=== PATIENT | male | born 1940 | race Caucasian/White ===

== ENCOUNTER 2024-07-22 09:15 | Emergency (ER) | payer MEDICARE, SELFPAY ==
[2024-07-22 09:37] VITALS: BP 175/83; PULSE 86; RESP 16; TEMP 36.4; O2SAT 100
[2024-07-22 10:02] LABS: Add Urine Microscopic? NO; Appearance Urine Clear (Clear); Bilirubin Urine Negative (Negative); Blood Urine Negative (Negative); Color Urine Yellow (Yellow); Glucose Urine UA Negative (Negative); Ketones Urine Negative (Negative); Leukocyte Esterase Ur Negative LEU/UL (Negative); Nitrate Urine Negative (Negative); Protein Urine Negative (Negative); Specific Grav Ur 1.011 (1.001-1.035); Urobilinogen Urine 0.2 mg/dL (<2.0); pH Urine 6.5 (5.0-9.0)
[2024-07-22 12:03] VITALS: BP 155/81; PULSE 53; RESP 18; O2SAT 100
--- NOTE | 2024-07-22 12:06 | PC.NURSE ---
pt has history of kidney stone that hasn't passed yet. two weeks ago he got a scan that showed the kidney stone still in the ureter. pt states that he has now been able to urinate after coming to the hospital and denies any discomfort or pain
--- NOTE | 2024-07-22 13:16 | ED.GENADULT ---
HPI - General Adult General Chief complaint: Urogenital-Male Stated complaint: unable to urinate Time Seen by Provider: 07/22/24 12:09 History of Present Illness HPI narrative: This is an 84-year-old male history of BPH presenting for difficulty urinating. Patient felt like he cannot urinate this morning was developing some suprapubic pressure. However when he got to the ED he was able to urinate with a weak stream. His pain is now improved. Patient is due for a urologic procedure on his prostate and due to difficulty urinating. Related Data Allergies Allergy/AdvReac Type Severity Reaction Status Date / Time ciprofloxacin Allergy Intermediate Cramping Verified 07/22/24 12:08 of the Muscles progesterone (From Allergy Intermediate Muscle Pain Verified 07/22/24 12:08 Endometrin) Exam Narrative: APPEARANCE: No apparent distress. Head: atraumatic. EYES: EOMI, NOSE: Atraumatic NECK: Trachea midline RESPIRATORY: No increased rate of breathing CARDIOVASCULAR: RRR, ABDOMINAL: Non-distended Soft nontender no guarding or rebound MUSCULOSKELETAl: No obvious deformities NEURO: Alert. Moving 4/4 extremities SKIN:: Warm, dry. Normal color PSYCHIATRIC: Normal affect Course Vital Signs Vital signs: Vital Signs Temperature 97.6 F 07/22/24 09:37 Pulse Rate 86 07/22/24 09:37 Respiratory Rate 16 07/22/24 09:37 Blood Pressure 175/83 H 07/22/24 09:37 Pulse Oximetry 100 07/22/24 09:37 Temperature 97.6 F 07/22/24 09:37 Pulse Rate 53 L 07/22/24 12:03 Respiratory Rate 18 07/22/24 12:03 Blood Pressure 155/81 H 07/22/24 12:03 Pulse Oximetry 100 07/22/24 12:03 Medical Decision Making [facility] Narrative Medical decision making narrative: -Course: 84-year-old male presenting with difficulty urinating. However when he arrived here he was able to urinate no longer has abdominal pain. Was read residual is 229. I discussed Zavala catheter versus allowing himself void and he would rather self void and return if anything is changed. Patient was discharged follow-up this urologist. -DDX includes but is not limited to: Urinary retention, UTI Vital Signs Vital Signs: Vital Signs Temperature 97.6 F 07/22/24 09:37 Pulse Rate 86 07/22/24 09:37 Respiratory Rate 16 07/22/24 09:37 Blood Pressure 175/83 H 07/22/24 09:37 Pulse Oximetry 100 07/22/24 09:37 Temperature 97.6 F 07/22/24 09:37 Pulse Rate 53 L 07/22/24 12:03 Respiratory Rate 18 07/22/24 12:03 Blood Pressure 155/81 H 07/22/24 12:03 Pulse Oximetry 100 07/22/24 12:03 Lab Data Labs: Lab Results 07/22/24 Range/Units 09:42 Urine Color Yellow (Yellow) Urine Appearance Clear (Clear) Urine pH 6.5 (5.0-9.0) Ur Specific [place] 1.011 (1.001-1.035) Urine Protein Negative (Negative) mg/dL Urine Glucose (UA) Negative (Negative) mg/dL Urine Ketones Negative (Negative) mg/dL Ur Blood (Man) Negative (Negative) Urine Nitrate Negative (Negative) Urine Bilirubin Negative (Negative) Urine Urobilinogen 0.2 (<2.0) mg/dL Leukocyte Esterase Rfl Negative (Negative) JERED/UL Discharge Plan Discharge Clinical Impression: Acute urinary retention Patient Disposition: Home, Self-Care Condition: Stable Instructions: Antibiotic Form, Urinary Retention in Men (ED) Additional Instructions: please follow-up with urologist for further management. If you are unable to urinate or developed abdominal pain return to the closest ED immediately. Patient Language: Kinyarwanda Follow-up/Referrals: PHYSICIAN NOT ON STAFF,NONSTAFF [Primary Care Provider] -
--- OUTSIDE RECORDS SUMMARY | 2024-07-29 09:18 | XMS_ITS ---
Author Organization [facility] Address [address] [place] [address] Care Team Providers Care Typesetters Printer Name Role Phone NONE, PCP Primary Care Provider Yanira QUEZADA M.D., LOLY Unavailable [phone] ROBERT MOULTON, AMEYA Unavailable Unavailable Ryann Avendano Unavailable [phone] REASON FOR VISIT WU adjustment, Left ear Encounters Encounter Location Date Provider Diagnosis [facility] [address] [place] [address] 07/13/2024 Ryann Avendano Plan Of Treatment No Information Progress Notes * LENCHO SAINZ LDOB:[birth year] (83 yo M)Acc No.[id number]:07/13/2024 Patient:?LENCHO SAINZ Provider:?Radha Rawls, TAMMY/Pipo :1940???Age:83 Y???Sex:Male Jamel e:07/13/2024 Address:[address] [facility] [place], [id number] Pcp:PCP NONE Subjective: * Chief Complaints: * ???1. WU adjustment, Left ea r. * Medical History:? Objective: * Vitals:? * Physical Examination:?WU Service:?WU Service Results?Patient seen today for evaluation of Oticon hearing aids. Patient complained of feedback noise bilaterally, worse on the left. He also believes the left is louder, and he reported he has been decreasing the volume 2 notches daily to remediate. After listening check, hearing aids revealed good sound quality, but physical fit of hearing aids was a bit big. Patient was switched from 10mm power domes to 8mm power domes and switched from size 2 to size 3 100 power receivers, bilaterally. This fit was much more comfortable for patient and significantly improved feedback issues. Patient still felt unbalanced, that his left WU was too loud, especially his voice. Loud sounds at all freqs were decreased two steps, and patient reported it to have improved. It was decided to try these settings over the holidays and reconvene in the future if he is still having issues. Patient was happy with today's appt and will return as needed. Patient given supply of new domes.?Cristina Watson B.A.; Radha Rawls, TAMMY/Pipo . Assessment: Plan: * Treatment: * Procedure Codes:?V5011 WU CH JANIS * Billing Information: * Visit Code:? * Procedure Codes:? V5011 WU CHECK. * ORATIVE CARE TECHNICIAN Sign off status: Completed true * Provider:?Radha Rawls CCC/Pipo Jamel e:?07/13/2024 Generated for Lana anderson/Salvatore/eTransmitting on:?07/29/2024 09:18 AM RESTORATIVE CARE TECHNICIAN History and Physical Notes * Physical Examination Category Sub-Category Detail Notes Section Note s WU Service WU Service Results Patient seen today for evaluation of Oticon hearing aids. Patient complained of feedback noise bilaterally, worse on the left. He also believes the left is louder, and he reported he has been decreasing the volume 2 notches daily to remediate. After listening check, hearing aids revealed good sound quality, but physical fit of hearing aids was a bit big. Patient was switched from 10mm power domes to 8mm power domes and switched from size 2 to size 3 100 power receivers, bilaterally. This fit was much more comfortable for patient and significantly improved feedback issues. Patient still felt unbalanced, that his left WU was too loud, especially his voice. Loud sounds at all freqs were decreased two steps, and patient reported it to have improved. It was decided to try these settings over the holidays and reconvene in the future if he is still having issues. Patient was happy with today's appt and will return as needed. Patient given supply of alcon Watson B.A.; Radha Rawls, TAMMY/A
--- OUTSIDE RECORDS SUMMARY | 2024-07-29 09:19 | XMS_ITS ---
Author Organization [facility] Address [address] [place] [address] Care Team Providers Care Mig Tig Welder Name Role Phone NONE, PCP Primary Care Provider Yanira QUEZADA M.D., LOLY Unavailable ROBERT MOULTON, AMEYA Unavailable Unavailable Ryann Avendano Unavailable [phone] REASON FOR VISIT WU adjustment Encounters Encounter Location Date Provider Diagnosis [facility] [address] [facility] [address] [place] [address] 06/01/2024 Ryann Avendano Plan Of Treatment No Information Progress Notes * LENCHO SAINZ LDOB:[birth year] (83 yo M)Acc No.[id number]:06/01/2024 Patient:?LENCHO SAINZ Provider:?Radha Rawls, [facility]/Pipo :1940???Age:83 Y???Sex:Male Jamel e:06/01/2024 Address:[address] [facility] [place], [id number] Pcp:PCP NONE Subjective: * Chief Complaints: * ???1. UW adjustment. * Medical History:? Objective: * Vitals:? * Physical Examination:?WU Service:?WU Service Results?Patient seen today for evaluation of Oticonhearing aids. Patient reported issues with not being able to understand speech. Otoscopy revealed extruded tube sitting in ear canal on the right. Initial listening check revealed HAs to be in GWO.Replaced wax filters and 10mm power domes, vacuumed microphones. Updated HAs to most recent?hearing test andrecalculated to targets. Increased to adaptation level 3. Patient reported improved speech understanding but his own voice was too loud. Reduced soft and moderate inputs up to 2kHz by 2dB. Patient reported improved sound quality. Patient is pleased and will return as needed or in November?for annualhearing evaluation/hearing aid check ?.?Audrey Calvert Assessment: Plan: * Treatment: * Procedure Codes:?V5011 WU CH JANIS * Billing Information: * Visit Code:? * Procedure Codes:? V5011 WU CHECK. * HER FOREMAN Sign off status: Completed true * Provider:?Radha Rawls CCC/Pipo Jamel e:?06/01/2024 Generated for Lana anderson/Salvatore/eTransmitting on:?07/29/2024 09:18 AM CRUSHER FOREMAN History and Physical Notes * Physical Examination Category Sub-Category Detail Notes Section Note s WU Service WU Service Results Patient seen today for evaluation of Oticon hearing aids. Patient reported issues with not being able to understand speech. Otoscopy revealed extruded tube sitting in ear canal on the right. Initial listening check revealed HAs to be in GWO. Replaced wax filters and 10mm power domes, vacuumed microphones. Updated HAs to most recent hearing test and recalculated to targets. Increased to adaptation level 3. Patient reported improved speech understanding but his own voice was too loud. Reduced soft and moderate inputs up to 2kHz by 2dB. Patient reported improved sound quality. Patient is pleased and will return as needed or in November for annual hearing evaluation/hearing aid check Audrey Calvert
--- OUTSIDE RECORDS SUMMARY | 2024-07-29 09:19 | XMS_ITS ---
Author Organization [facility] Address [address] [place] [address] Care Team Providers Care Film Recordist Name Role Phone NONE, PCP Primary Care Provider Yanira QUEZADA M.D., LOLY Jackman ROBERT MOULTON, AMEYA Jackman Unavailable REASON FOR VISIT Payment Encounters Encounter Location Date Provider Diagnosis [facility] [address] [facility] [address] [place] [address] 02/18/2024 LOLY BRISCOE III Plan Of Treatment No Information Progress Notes * LENCHO SAINZ LDOB:[birth year] (83 yo M)Acc No.[id number]:02/18/2024 Patient:?LENCHO SAINZ :1940???Age:83 Y???Sex:Male Address:[address] [facility] [place] [address] * true * Date:? Generated for Lana anderson/Salvatore/eTransmitting on:?07/29/2024 09:18 AM PIPE FITTER GAS PIPE
--- OUTSIDE RECORDS SUMMARY | 2024-07-29 18:35 | XMS_ITS | Encounter Summary ---
Author Organization [facility] Address [address] [place] [address] Care Team Providers Care Spraying Machine Operator Name Role Phone Kevin John MD Primary Care Provider [phone] Encounter Details Date Type Department Care Team (Late st Contact Info) Description 05/22/2024 1:00 PM CDT Ancillary Procedure [facility] (X-ray) [address] [facility] [address] [place] [phone] Kidney stone Social History Tobacco Use Types Packs/Day Years Used Date Smoking Tobacco: Never Humiliation, Afraid, Rape, and Kick questionnair e Answer Date Recorded Within the last year, have y ou been afraid of your partner or ex-partner? No 05/05/2024 Within the last year, have y ou been humiliated or emotionally abused in other ways by your partner or ex-partner? No Within the last year, have y ou been kicked, hit, slapped, or otherwise physically hurt by your partner or ex-partner? No 05/05/2024 Within the last year, have y ou been raped or forced to have any kind of sexual activity by your partner or ex-partner? No 05/05/2024 Sex and Gender Information Value Date Recorded Sex Assigned at Male 02/08/2024 1:37 PM CDT Legal Sex Male 6:20 AM CDT Gender Identity Male 10/17/2023 6:20 AM CDT Sexual Orientation Straight 02/08/2024 1: 37 PM CDT Travel History Travel Start Travel End [place] 07/17/2024 07/24/2024 documented as of this encounter Plan of Treatment Upcoming Encounters Date Type Department Care Team (Late st Contact Info) Description 08/01/2024 3:30 PM BAGGER MEAT Office Visit [facility] [address] [facility] [address] [place] [phone] Kevin John MD [address] [place] [address] documented as of this encounter Procedures Procedure Name Priority Date/Time Associated Diagnosis Comments XR ABDOMEN 1 VIEW Routine 05/22/2024 1:0 4 PM CDT Kidney stone documented in this encounter Results * XR abdomen 1 view (05/22/2024 1:04 PM CDT) Anatomical Region Laterality Modality Abdomen Digital Radiogra phy Impressions 05/22/2024 5:29 PM CDT No acute findings. Moderate amount of retained feces consistent with constipation. ELECTRONICALLY SIGNED BY DANDRE TROTTER MD ON 05/22/2024 AT 17:29. Narrative 05/22/2024 5:29 PM CDT PROCEDURE INFORMATION: Exam: XR Abdomen Exam date and time: 05/22/2024 1:05 PM Age: 83 years old Clinical indication: Calculus of kidney; Additional info: Renal stone TECHNIQUE: Imaging protocol: Radiologic exam of the abdomen. Views: Frontal supine view of the abdomen. 1 View. COMPARISON: CT ANGIOGRAM CHEST ABDOMEN PELVIS 05/05/2024 2:51 AM FINDINGS: Gastrointestinal tract: There is a non-obstructive bowel gas pattern. There is no abnormal dilatation of bowel loops. There is no pneumatosis or mass effect. ?? Moderate amount of retained feces is present in the colon. Bones/joints: ??Degenerative changes of the lumbar spine. Soft tissues: No abnormal radiopaque densities. ??Phleboliths project over the pelvis. Procedure Note Dandre Trotter MD - 05/22/2024 PROCEDURE INFORMATION: Exam: XR Abdomen Exam date and time: 05/22/2024 1:05 PM Age: 83 years old Clinical indication: Calculus of kidney; Additional info: Renal stone TECHNIQUE: Imaging protocol: Radiologic exam of the abdomen. Views: Frontal supine view of the abdomen. 1 View. COMPARISON: CT ANGIOGRAM CHEST ABDOMEN PELVIS 05/05/2024 2:51 AM FINDINGS: Gastrointestinal tract: There is a non-obstructive bowel gas pattern.There is no abnormal dilatation of bowel loops. There is no pneumatosis or masseffect. Moderate amount of retained feces is present in the colon. Bones/joints: Degenerative changes of the lumbar spine. Soft tissues: No abnormal radiopaque densities. Phleboliths project overthe pelvis. IMPRESSION: No acute findings. Moderate amount of retained feces consistent with constipation. ELECTRONICALLY SIGNED BY DANDRE TROTTER MD ON 05/22/2024 AT 17:29. Kevin John MD IMG XR PROCEDURES Final Res ult documented in this encounter Visit Diagnoses Diagnosis Kidney stone Calculus of kidney documented in this encounter Care Teams Spraying Machine Operator Relationship Specialty Start Date End Date Kevin John MD [address] [facility] [address] [place] [phone] PCP - General 10/16/20 documented as of this encounter
--- OUTSIDE RECORDS SUMMARY | 2024-07-29 18:35 | XMS_ITS | Clinical Summary ---
Author Organization [facility] Address [address] [place] [address] Care Team Providers Care Clerical Methods Analyst Name Role Phone Kevin John MD Primary Care Provider [phone] Allergies Active Allergy Reactions Criticality Noted Date Comments Ciprofloxacin 09/17/2023 Pain in calves Indomethacin 05/04/2024 Calf leg pain Medications alfuzosin ER (Uroxatral) 10 MG 24 hr tablet Take 20 mg by mouth 1 time each day. Active finasteride (Proscar) 5 MG tablet Take 5 mg by mouth 1 time each day. Active tamsulosin (Flomax) 0.4 MG 24 hr capsule Take 1 capsule by mouth 1 time each day. 30 capsule Active Additional Information Patient not taking.Reported on 05/18/2024 Active Problems Problem Noted Date Diagnosed Date Pulmonary nodule 05/05/2024 Renal lesion 05/05/2024 Calculus of gallbladder with out cholecystitis without obstruction 05/05/2024 Encounters Date Type Department Care Team Description 07/25/2024 Travel 07/15/2024 Results Follow-Up [facility] [address] [place] [phone] Kevin John MD 07/12/2024 11:30 AM LINK KNITTING MACHINE OPERATOR Ancillary Procedure [facility] (Ultrasound) [address] [place] [address] Kidney stone 07/12/2024 Travel 05/23/2024 Results Follow-Up [facility] [address] [place] [phone] Kevin John MD Kidney stone (Primary Dx) 05/22/2024 1:00 PM CDT Ancillary Procedure [facility] (X-ray) [address] [place] [address] Kidney stone 05/22/2024 Travel 05/18/2024 3:45 PM CDT Office Visit [facility] [address] [place] [address] Kevin John MD Benign prostatic hyperplasia without lower urinary tract symptoms (Primary Dx); Kidney stone 05/05/2024 Erroneous Telephone Encounter [facility] [address] [place] [address] Sarah Parisi PA 05/04/2024 10:59 PM CDT - 05/05/2024 6:51 AM CDT Emergency [facility] (Emergency) [address] [place] [address] Mihir Daley MD Left flank pain (Primary Dx); Ureterolithiasis; Pulmonary nodule; Renal lesion; Calculus of gallbladder without cholecystitis without obstruction Discharge Disposition: Home 05/04/2024 Travel from Last 3 Months Social History Tobacco Use Types Packs/Day Years [...] CDT Travel History Travel Start Travel End [place] 07/17/2024 07/24/2024 Last Filed Vital Signs Vital Sign Reading Time Taken Comments Blood Pressure 148/63 05/18/2024 3:43 PM CDT Pulse 43 05/18/2024 3:43 PM CDT Temperature 36.7 ??C (98 ??F) 05/05/2024 6:38 AM CDT Respiratory Rate 18 05/05/2024 6:38 AM CDT Oxygen Saturation 99% 05/05/2024 6:38 AM CDT Inhaled Oxygen Concentration - - Weight 85.5 kg (188 lb 9.6 oz) 05/18/2024 3:43 P M CDT Height 177.8 cm (5' 10 ) 05/18/2024 3:43 PM CDT Body Mass Index 27.06 05/18/2024 3:43 PM CDT Plan of Treatment Upcoming Encounters Date Type Department Care Team (Late st Contact Info) Description 08/01/2024 3:30 PM LINK KNITTING MACHINE OPERATOR Office Visit [facility] [address] [place] [address] Kevin John MD [address] [place] [address] Health Maintenance Due Date Last Done Comments DTaP/Tdap/Td Vaccines (1 - Tdap) 1960 Zoster Vaccines (1 of 2) 1991 Respiratory Syncytial Virus (RSV) or >=60 (1 - 1-dose 75+ series) 2016 Annual Physical 11/24/2017 11/24/2016 Pneumococcal Vaccine: 65+ Years (2 of 2 - PCV) 03/26/2018 03/26/2017, 07/01/2016 Influenza Vaccine (#1) 2024 3, 03/26/2017, 07/01/2016, Additional history exists Lipid Panel 03/04/2029 03/04/2024 HIB Vaccines Aged Out No longer eligi ble based on patient's age to complete this topic HPV Vaccines Aged Out No longer eligi ble based on patient's age to complete this topic Hepatitis A Vaccines Aged Out No long er eligible based on patient's age to complete this topic Hepatitis B Vaccines Aged Out No long er eligible based on patient's age to complete this topic IPV Vaccines Aged Out No longer eligi ble based on patient's age to complete this topic Meningococcal Vaccine Aged Out No shaquille seth eligible based on patient's age to complete this topic Rotavirus Vaccines Aged Out No longer eligible based on patient's age to complete this topic Procedures Procedure Name Priority Date/Time Associated Diagnosis Comments US RENAL COMPLETE Routine 07/12/2024 11: 26 AM LINK KNITTING MACHINE OPERATOR Kidney stone XR ABDOMEN 1 VIEW Routine 05/22/2024 1:0 4 PM CDT Kidney stone POCT URINE DIPSTICK (INTRFC) Routine 05/18/2024 3:56 PM CDT [address] stone CT ANGIOGRAM CHEST ABDOMEN PELVIS Emergent 05/05/2024 3:00 AM CDT AUTOMATED DIFFERENTIAL STAT 05/05/2024 1:01 AM CDT COMPLETE BLOOD COUNT STAT 05/05/2024 1:01 AM CDT UA WITH CULTURE IF INDICATED STAT 05/05/2024 1:01 AM CDT LIPASE LEVEL STAT 05/05/2024 1:01 AM CDT HEPATIC FUNCTION PANEL STAT 05/05/2024 1:01 AM CDT BASIC METABOLIC PANEL STAT 05/05/2024 1:01 AM CDT COMPLETE BLOOD COUNT W/DIFF AND PLATELET STAT 05/05/2024 1:01 AM CDT from Last 3 Months Results * US renal complete (07/12/2024 11:26 AM LINK KNITTING MACHINE OPERATOR) Anatomical Region Laterality Modality Kidney Ultrasound Addenda Addendum by Shine John MD on 07/14/2024 11:32 PM LINK KNITTING MACHINE OPERATOR Prostate: The prostate gland volume measures 242 cc. ELECTRONICALLY SIGNED BY SHINE JOHN MD ON 07/14/2024 AT 23:32. Impressions 07/14/2024 11:31 PM LINK KNITTING MACHINE OPERATOR 1. ?? Echogenic 1.2 cm focus left to the bladder in the region of the left distal left ureter, may represent a stone. No hydronephrosis. 2. ?? Severe prostatomegaly ELECTRONICALLY SIGNED BY SHINE JOHN MD ON 07/14/2024 AT 23:31. Narrative 07/14/2024 11:31 PM LINK KNITTING MACHINE OPERATOR PROCEDURE INFORMATION: Exam: US Retroperitoneal, Complete, Kidneys and Bladder Exam date and time: 07/12/2024 10:45 AM Age: 83 years old Clinical indication: Calculus of kidney; Additional info: Hydroenphrosis TECHNIQUE: Imaging protocol: Real-time ultrasound of the retroperitoneum with image documentation. Complete exam focused on the bilateral kidneys and urinary bladder. COMPARISON: RETROPERITONEAL COMPLETE US 10/21/2020 9:18 AM FINDINGS: Right kidney: Normal. No stones. No hydronephrosis. Benign cortical renal cysts measure up 8 mm. Left kidney: Normal. No stones. No hydronephrosis. Benign cortical renal cysts measure up to 1.7 cm. Urinary bladder: A 1.2 mm echogenic focus left the bladder in the region of the left ureter is noted. The bilateral ureteral jets are noted. Prostate: The prostate gland volume measures 242. Procedure Note Shine John MD - 07/14/2024 PROCEDURE INFORMATION: Exam: US Retroperitoneal, Complete, Kidneys and Bladder Exam date and time: 07/12/2024 10:45 AM Age: 83 years old Clinical indication: Calculus of kidney; Additional info: Hydroenphrosis TECHNIQUE: Imaging protocol: Real-time ultrasound of the retroperitoneum with image documentation. Complete exam focused on the bilateral kidneys and urinary bladder. COMPARISON: RETROPERITONEAL COMPLETE US 10/21/2020 9:18 AM FINDINGS: Right kidney: Normal. No stones. No hydronephrosis. Benign cortical renalcysts measure up 8 mm. Left kidney: Normal. No stones. No hydronephrosis. Benign cortical renalcysts measure up to 1.7 cm. Urinary bladder: A 1.2 mm echogenic focus left the bladder in the regionof the left ureter is noted. The bilateral ureteral jets are noted. Prostate: The prostate gland volume measures 242. IMPRESSION: 1. Echogenic 1.2 cm focus left to the bladder in the region of the left distal left ureter, may represent a stone. No hydronephrosis. 2. Severe prostatomegaly ELECTRONICALLY SIGNED BY SHINE JOHN MD ON 07/14/2024 AT 23:31. us Kvein John MD IMG US PROCEDURES Edited Re sult - Final * XR abdomen 1 view (05/22/2024 1:04 [...] MD IMG XR PROCEDURES Final Res ult * (ABNORMAL) POCT Urine Dipstick (INTRFC) (05/18/2024 3:56 PM CDT) POC UA Turbid Clear Clear [facility] UA Color Yellow Yellow [facility] UA pH 6.5 5.0 - 8.0 [facility] UA SG 1.015 <1.005 - 1.025 [facility] UA Glu Negative Negative mg/dL [facility] UA Bld Trace-lysed( A) Negative [facility] UA Ket Negative Negative mg/dL [facility] UA Protein Negative Negative mg/dL [facility] UA Uro 0.2 0.1 - 1.0 E.U./dL [facility] UA Bili Negative Negative [facility] UA Leuk Est Negative Negative [facility] UA Nit Negative Negative [facility] Device [id number] [facility] Oper ID [id number] [facility] Performing Location [facility] Urine 05/18/2024 3:56 PM CDT Kevin John MD LAB POINT OF CARE TEST DOCK ED DEVICE ORDERABLES Final Result [facility] * CT angiogram chest abdomen pelvis (05/05/2024 3:00 AM CDT) Anatomical Region Laterality Modality Computed Tomogra phy Impressions 05/05/2024 5:22 AM CDT 1. ?? No aortic aneurysm or dissection. 2. ?? A 6 mm distal left ureteral stone is associated with hydroureter and inflammatory change. Urology consultation is recommended. 3. ?? Marked prostatomegaly. 4. ?? Left pelvic lymphadenopathy. There may be additional mildly enlarged retroperitoneal lymph nodes. Consider PET-CT for further evaluation. 5. ?? Cholelithiasis. 6. ?? Pulmonary nodules measure up to 7 mm. The majority of nodules are along the fissure, and could represent lymph nodes, although they demonstrate an atypically rounded appearance. For patients at low risk (minimal or absent history of smoking and of other known risk factors), recommend CT Chest at 3-6 months, then consider CT Chest at 18-24 months. For patients at high risk (history of smoking or of other known risk factors), recommend CT Chest at 3-6 months, then CT Chest at 18-24 months. (Reference: Quynh) 7. ?? Possible subcentimeter enhancing lesion right upper kidney. Consider dedicated renal imaging number attention on follow up imaging. COMMENTS: Consistent with the [place] [employer]'s Incidental Findings Committee white paper (J Am Dennis Radiol 2018): Any incidental renal lesion less than 1 cm or classified as too small to characterize, or any incidental cystic renal lesion characterized as simple-appearing, is likely benign. No follow-up imaging is recommended for these lesions per consensus recommendations based on imaging criteria. REFERENCES: Quynh Melendez, et al. Guidelines for Management of Incidental Pulmonary Nodules Detected on CT Images: From the Fleischner Society 2017. Radiology. 2017;284(1):228-243. ELECTRONICALLY SIGNED BY KACIE RAINES MD ON 05/05/2024 AT 05:22. Narrative 05/05/2024 5:22 AM CDT Radiation Dose CTDIVOL = 0 (mGy): DLP = 1013.01 (mGy-cm) Radiation Dose CTDIVOL = 0 (mGy): DLP = 1013.01 (mGy-cm) PROCEDURE INFORMATION: Exam: CTA Chest With Contrast CTA Abdomen and Pelvis With Contrast Exam date and time: 05/05/2024 2:51 AM Age: 83 years old Clinical indication: Flank pain HTN TECHNIQUE: Imaging protocol: Computed tomographic angiography of the chest with contrast. Exam focused on the arteries. Computed tomographic angiography of the abdomen and pelvis with contrast. Exam focused on the arteries. 3D rendering (Not supervised by radiologist): MIP and/or 3D reconstructed images were created by the technologist. Radiation optimization: All CT scans at this facility use at least one of these dose optimization techniques: automated exposure control; mA and/or kV adjustment per patient size (includes targeted exams where dose is matched to clinical indication); or iterative reconstruction. Contrast material: OMNI 350; Contrast volume: 75 ml; Contrast route: INTRAVENOUS (IV); ?? COMPARISON: RETROPERITONEAL COMPLETE US 10/21/2020 9:18 AM RADIATION DOSE METRICS: Total DLP (mGy-cm): 1013.01 FINDINGS: VASCULATURE: Pulmonary arteries: Normal. No pulmonary emboli. Aorta: There is calcific atherosclerotic disease of the thoracic aorta. No evidence of aneurysmal dilatation. No dissection. Celiac trunk and mesenteric arteries: Scattered calcific atherosclerotic disease. No occlusion or significant stenosis. Possible mild stenosis at the origin of the inferior mesenteric artery. Renal arteries: Scattered calcific atherosclerotic disease. No occlusion or significant stenosis. Right iliac arteries: Scattered calcific atherosclerotic disease. No occlusion or significant stenosis. Left iliac arteries: Scattered calcific atherosclerotic disease. No occlusion or significant stenosis. CHEST: Lungs: There is subpleural atelectasis of the dependent portions of the lungs. There is a 7 mm nodule in the right middle lobe. There are 3 rounded nodules along left major fissure, measuring up to 5 mm. Pleural spaces: No pleural effusion or pneumothorax. Heart: Calcification of the aortic valve is present. Coronary arteries: Triple-vessel coronary artery disease. ABDOMEN AND PELVIS: Liver: No mass. Gallbladder and biliary ducts: Cholelithiasis is present. Pancreas: Unremarkable. No mass. No ductal dilation. Spleen: Unremarkable. No splenomegaly. Adrenal glands: Unremarkable. No mass. Kidneys and ureters: There is a 6 mm stone within the distal left ureter. There is associated mild hydroureteronephrosis and fat stranding throughout the left retroperitoneum. Bilateral renal cysts are present. There is a tiny hyperdensity within the right upper pole, which could reflect volume averaging this areas not imaged noncontrast portion of the exam which makes evaluation for enhancement limited. Stomach and bowel: Unremarkable. No obstruction. No mucosal thickening. Appendix: No evidence of appendicitis. Intraperitoneal space: Unremarkable. No free air. No significant fluid collection. Urinary bladder: Unremarkable. No mass. Reproductive: Marked prostatomegaly measuring 6.8 x 8.6 cm in axial dimensions. Lymph nodes: Abnormally enlarged left external iliac chain lymph node measuring 1.6 x 1.1 cm. There is a 2nd prominent left external iliac chain node. Several mildly prominent retroperitoneal lymph nodes are also present. Bones/joints: Unremarkable. No acute fracture. ??Multilevel degenerative disease is present throughout the visualized spine. ??Traditional lumbosacral anatomy is noted. Soft tissues: Unremarkable. Procedure Note Kacie Raines MD - 05/05/2024 Radiation Dose CTDIVOL = 0 (mGy): DLP = 1013.01 (mGy-cm) Radiation Dose CTDIVOL = 0 (mGy): DLP = 1013.01 (mGy-cm) PROCEDURE INFORMATION: Exam: CTA Chest With Contrast CTA Abdomen and Pelvis With Contrast Exam date and time: 05/05/2024 2:51 AM Age: 83 years old Clinical indication: Flank pain HTN TECHNIQUE: Imaging protocol: Computed tomographic angiography of the chest withcontrast. Exam focused on the arteries. Computed tomographic angiography of theabdomen and pelvis with contrast. Exam focused on the arteries. 3D rendering (Not supervised by radiologist): MIP and/or 3D reconstructed images were created by the technologist. Radiation optimization: All CT scans at this facility use at least one ofthese dose optimization techniques: automated exposure control; mA and/or kV adjustment per patient size (includes targeted exams where dose is matchedto clinical indication); or iterative reconstruction. Contrast material: OMNI 350; Contrast volume: 75 ml; Contrast route: INTRAVENOUS (IV); COMPARISON: RETROPERITONEAL COMPLETE US 10/21/2020 9:18 AM RADIATION DOSE METRICS: Total DLP (mGy-cm): 1013.01 FINDINGS: VASCULATURE: Pulmonary arteries: Normal. No pulmonary emboli. Aorta: There is calcific atherosclerotic disease of the thoracic aorta. No evidence of aneurysmal dilatation. No dissection. Celiac trunk and mesenteric arteries: Scattered calcific atherosclerotic disease. No occlusion or significant stenosis. Possible mild stenosis atthe origin of the inferior mesenteric artery. Renal arteries: Scattered calcific atherosclerotic disease. No occlusionor significant stenosis. Right iliac arteries: Scattered calcific atherosclerotic disease. Noocclusion or significant stenosis. Left iliac arteries: Scattered calcific atherosclerotic disease. Noocclusion or significant stenosis. CHEST: Lungs: There is subpleural atelectasis of the dependent portions of thelungs. There is a 7 mm nodule in the right middle lobe. There are 3 roundednodules along left major fissure, measuring up to 5 mm. Pleural spaces: No pleural effusion or pneumothorax. Heart: Calcification of the aortic valve is present. Coronary arteries: Triple-vessel coronary artery disease. ABDOMEN AND PELVIS: Liver: No mass. Gallbladder and biliary ducts: Cholelithiasis is present. Pancreas: Unremarkable. No mass. No ductal dilation. Spleen: Unremarkable. No splenomegaly. Adrenal glands: Unremarkable. No mass. Kidneys and ureters: There is a 6 mm stone within the distal left ureter.There is associated mild hydroureteronephrosis and fat stranding throughout theleft retroperitoneum. Bilateral renal cysts are present. There is a tiny hyperdensity within the right upper pole, which could reflect volumeaveraging this areas not imaged noncontrast portion of the exam which makesevaluation for enhancement limited. Stomach and bowel: Unremarkable. No obstruction. No mucosal thickening. Appendix: No evidence of appendicitis. Intraperitoneal space: Unremarkable. No free air. No significant fluid collection. Urinary bladder: Unremarkable. No mass. Reproductive: Marked prostatomegaly measuring 6.8 x 8.6 cm in axialdimensions. Lymph nodes: Abnormally enlarged left external iliac chain lymph nodemeasuring 1.6 x 1.1 cm. There is a 2nd prominent left external iliac chain node.Several mildly prominent retroperitoneal lymph nodes are also present. Bones/joints: Unremarkable. No acute fracture. Multilevel degenerativedisease is present throughout the visualized spine. Traditional lumbosacralanatomy is noted. Soft tissues: Unremarkable. IMPRESSION: 1. No aortic aneurysm or dissection. 2. A 6 mm distal left ureteral stone is associated with hydroureter and inflammatory change. Urology consultation is recommended. 3. Marked prostatomegaly. 4. Left pelvic lymphadenopathy. There may be additional mildly enlarged retroperitoneal lymph nodes. Consider PET-CT for further evaluation. 5. Cholelithiasis. 6. Pulmonary nodules measure up to 7 mm. The majority of nodules arealong the fissure, and could represent lymph nodes, although they demonstrate an atypically rounded appearance. For patients at low risk (minimal or absent history of smoking and of other known risk factors), recommend CT Chest at3-6 months, then consider CT Chest at 18-24 months. For patients at high risk (history of smoking or of other known risk factors), recommend CT Chest at3-6 months, then CT Chest at 18-24 months. (Reference: Quynh) 7. Possible subcentimeter enhancing lesion right upper kidney. Consider dedicated renal imaging number attention on follow up imaging. COMMENTS: Consistent with the [place] [employer]'s Incidental Findings Committee white paper (J Am Dennis Radiol 2018): Any incidental renal lesionless than 1 cm or classified as too small to characterize, or any incidentalcystic renal lesion characterized as simple-appearing, is likely benign. Nofollow-up imaging is recommended for these lesions per consensus recommendationsbased on imaging criteria. REFERENCES: Quynh Melendez, et al. Guidelines for Management of Incidental PulmonaryNodules Detected on CT Images: From the Fleischner Society 2017. Radiology. 2017;284(1):228-243. ELECTRONICALLY SIGNED BY KACIE RAINES MD ON 05/05/2024 AT 05:22. Mihir Daley MD IMG CT PROCEDURES Fi nal Result * (ABNORMAL) Automated Differential (05/05/2024 1:01 AM CDT) Segs % 71.0 40.6 - 75.7 % 05/05/2024 1:39 AM CDT [facility] Lymphs % 22.3 14.9 - 47.8 % 05/05/2024 1:39 AM CDT [facility] Monos % 5.6 4.2 - 12.6 % 05/05/2024 1:39 AM CDT [facility] Eos % 0.3 0.2 - 5.0 % 05/05/2024 1:39 AM CDT [facility] Basos % 0.4 0.2 - 1.3 % 05/05/2024 1:39 AM CDT [facility] Immature Grans % 0.4 0.1 - 1.0 % 05/05/2024 1:39 AM CDT [facility] Segs # 11.13(H) 1.48 - 6.56 10*3/uL 05/05/2024 1:39 AM CDT [facility] Lymphs # 3.50 0.86 - 3.84 10*3/uL 05/05/2024 1:39 AM CDT [facility] Monos # 0.87 0.29 - 0.96 10*3/uL 05/05/2024 1:39 AM CDT [facility] Eos # 0.04 0.00 - 0.46 10*3/uL 05/05/2024 1:39 AM CDT [facility] Basos # 0.06 0.01 - 0.08 10*3/uL 05/05/2024 1:39 AM CDT [facility] Imm Grans # 0.06 0.01 - 0.07 10*3/uL 05/05/2024 1:39 AM CDT [facility] Blood Venous blood specimen / Unknown Venipuncture / Unknown 05/05/2024 1:01 AM CDT 05/05/2024 1:30 AM CDT us Mihir Daley MD LAB BLOOD ORDERABLES Final Result [facility] [address] [place] [id number] * (ABNORMAL) Complete Blood Count (05/05/2024 1:01 AM CDT) WBC 15.66(H) 3.92-.10.07 10*3/uL 05/10/2024 5:13 PM CDT [facility] RBC 4.86 4.27 - 6.02 10*6/uL 05/10/2024 5:13 PM CDT [facility] NRBC % 0.0 0 /100 WBC 05/10/2024 5:13 PM CDT [facility] Hgb 14.2 12.4 - 17.4 g/dL 05/10/2024 5:13 PM CDT [facility] Hct 44.7 37.1 - 50.8 % 05/10/2024 5:13 PM CDT [facility] MCV 92.0 79.2 - 96.8 fL 05/10/2024 5:13 PM CDT [facility] MCH 29.2 26.1 - 32.4 pg 05/10/2024 5:13 PM CDT [facility] MCHC 31.8 31.2 - 36.1 g/dL 05/10/2024 5:13 PM CDT [facility] RDW - SD 43.2(H) 34.0 - 37.0 fL 05/10/2024 5:13 PM CDT [facility] Plt Count 130(L) 160 - 381 10*3/uL 05/10/2024 5:13 PM CDT [facility] MPV 13.0(H) 9.0 - 12.0 fL 05/10/2024 5:13 PM CDT [facility] Blood Venous blood specimen / Unknown Venipuncture / Unknown 05/05/2024 1:01 AM CDT 05/05/2024 1:30 AM CDT us Mihir Daley MD LAB BLOOD ORDERABLES Edited Result - Final [facility] [address] [place], [place] [id number] * (ABNORMAL) UA with culture if indicated (05/05/2024 1:01 AM CDT) UA Color Yellow Yellow 05/05/2024 1:46 AM CDT [facility] UA Turbidity Slight Cloudy(A) Clear 05/05/2024 1:46 AM CDT [facility] UA Spec Grav 1.018 <=1.030 05/05/2024 1:46 AM CDT [facility] UA pH 7.0 5.0 - 8.0 05/05/2024 1:46 AM CDT [facility] UA Protein 30(A) Negative mg/dL 05/05/2024 1:46 AM CDT [facility] UA Glucose Negative Negative mg/dL 05/05/2024 1:46 AM CDT [facility] UA Ketones Trace(A) Negative mg/dL 05/05/2024 1:46 AM CDT [facility] UA Bilirubin Negative Negative mg/dL 05/05/2024 1:46 AM CDT [facility] UA Blood Large(A) Negative 05/05/2024 1:46 AM CDT [facility] UA Urobilinogen <=1.0 0.1 - 1.0 mg/dL 05/05/2024 1:46 AM CDT [facility] UA Nitrite Negative Negative 05/05/2024 1:46 AM CDT [facility] UA Leuk Esterase Trace(A) Negative 05/05/20 1:46 AM CDT [facility] UA Ascorbic Acid Negative Negative 05/05/20 1:46 AM CDT [facility] UA Sq Epi None Seen Few /LPF 05/05/2024 1:46 AM CDT [facility] Urine Urine specimen obtained by clean catch procedure / Unknown Non-blood Collection / Unknown 05/05/2024 1:01 AM CDT 05/05/2024 1:30 AM CDT Mihir Daley MD LAB URINE ORDERABLES Final Result [facility] [address] [place] [address] * Lipase (05/05/2024 1:01 AM CDT) Lipase Lvl 38 12 - 53 U/L 05/05/2024 2:06 AM CDT [facility] Blood Venous blood specimen / Unknown Venipuncture / Unknown 05/05/2024 1:01 AM CDT 05/05/2024 1:30 AM CDT Mihir Daley MD LAB BLOOD ORDERABLES Final Result [facility] [address] [address] [place], [place] [id number] * Hepatic Function Panel (05/05/2024 1:01 AM CDT) [facility] Signature Protein 6.8 5.7 - 8.2 g/dL 05/05/2024 2:06 AM CDT [facility] Albumin Lvl 4.1 3.4 - 5.0 g/dL 05/05/2024 2:06 AM CDT [facility] Bilirubin Total 0.85 0.20 - 1.10 mg/dL 05/05/2024 2:06 AM CDT [facility] Comment:The pediatric refere nce ranges for this test represent a CLSI-based transference of the Siemens study of pediatric reference intervals for the Siemens Atellica analyzer (CLSI EP28). [facility] has not internally validated these reference ranges and therefore they should be used only in the context of a thorough clinical assessment. Bilirubin Direct 0.3 <=0.3 mg/dL 05/05/2024 2:06 AM CDT [facility] Bilirubin Indirect 0.6 0.0 - 1.0 mg/dL 05/05/2024 2:06 AM CDT [facility] Alkaline Phosphatase 85 46 - 116 U/L 05/05/2024 2:06 AM CDT [facility] AST 18 12 - 40 U/L 05/05/2024 2:06 AM CDT [facility] ALT 17 7 - 40 U/L 05/05/2024 2:06 AM CDT [facility] Globulin, Calc 2.7 2.0 - 4.0 g/dL 05/05/2024 2:06 AM CDT [facility] Albumin/Globulin Ratio 1.52 0.7 - 1.6 05/05/2024 2:06 AM CDT [facility] Blood Venous blood specimen / Unknown Venipuncture / Unknown 05/05/2024 1:01 AM CDT 05/05/2024 1:30 AM CDT us Mihir Daley MD LAB BLOOD ORDERABLES Final Result [facility] [address] [place] [address] * (ABNORMAL) Basic Metabolic Panel (05/05/2024 1:01 AM CDT) Glucose Lvl 129(H) 70 - 99 mg/dL 05/05/2024 2:06 AM CDT [facility] Comment:Adult reference rang e values reflect the clinical guidelines of the [place] [employer]. BUN 21 9 - 23 mg/dL 05/05/2024 2:06 AM CDT [facility] Creatinine Lvl 1.55(H) 0.7 - 1.30 mg/dL 05/05/2024 2:06 AM CDT [facility] Sodium Lvl 142 136 - 145 mEq/L 05/05/2024 2:06 AM CDT [facility] Potassium Lvl 4.5 3.4 - 4.5 mEq/L 05/05/2024 2:06 AM CDT [facility] Chloride Lvl 111(H) 98 - 107 mEq/L 05/05/2024 2:06 AM CDT [facility] CO2 Lvl 26.0 20.0 - 31.0 mEq/L 05/05/2024 2:06 AM CDT [facility] Anion Gap 9.5(L) 10.0 - 20.0 mEq/L 05/05/2024 2:06 AM CDT [facility] Calcium Lvl 10.8(H) 8.3 - 10.6 mg/dL 05/05/2024 2:06 AM CDT [facility] eGFR 44(L) >60 mL/min/1.7 3m2 05/05/2024 2:06 AM CDT [facility] Comment: The eGFR is calculated using the CKD-EPI formula. In most young, healthy individuals the eGFR will be >90 mL/min/1.73m2. The eGFR declines with age. An eGFR of 60-89 may be normal in some populations, particularly the elderly, for whom the CKD-EPI formula has not been extensively validated. Use of the eGFR is not recommended in the following populations: Individuals with unstable creatinine concentrations, including patients and those with serious co-morbid conditions. Patients with extremes in muscle mass or diet. The data above are obtained from the National Kidney Disease Education Program (NKDEP) which additionally recommends that when the eGFR is used in patients with extremes of body mass index for purposes of drug dosing, the eGFR should be multiplied by the estimated BMI. Blood Venous blood specimen / Unknown Venipuncture / Unknown 05/05/2024 1:01 AM CDT 05/05/2024 1:30 AM CDT Mihir Daley MD LAB BLOOD ORDERABLES Final Result [facility] [address] [place] [address] from Last 3 Months Insurance MEDICARE PART A AND B AETNA OTHER MEDICARE PART A AND B AETNA OTHER Care Teams Clerical Methods Analyst Relationship Specialty Start Date End Date Kevin John MD [address] [facility] [address] [place] [phone] PCP - General 10/16/20
--- OUTSIDE RECORDS SUMMARY | 2024-07-29 18:35 | XMS_ITS | Encounter Summary ---
Author Organization [facility] Address [address] [place] [address] Care Team Providers Care Customer Services Coordinator Name Role Phone Kevin John MD Primary Care Provider [phone]- [phone] Reason for Visit * Reason Comments Nephrolithiasis Encounter Details Date Type Department Care Team (Late st Contact Info) Description 05/18/2024 3:45 PM CDT Office Visit [facility] [address] [facility] [address] [place] [address] Kevin John MD [address] [facility] [address] [place] [address] Benign prostatic hyperplasia without lower urinary tract symptoms (Primary Dx); Kidney stone Social History Tobacco Use Types [...] CDT Travel History Travel Start Travel End [place] 07/17/2024 07/24/2024 documented as of this encounter Last Filed Vital Signs Vital Sign Reading Time Taken Comments Blood Pressure 148/63 05/18/2024 3:43 PM CDT Pulse 43 05/18/2024 3:43 PM CDT Temperature - - Respiratory Rate - - Oxygen Saturation - - Inhaled Oxygen Concentration - - Weight 85.5 kg (188 lb 9.6 oz) 05/18/2024 3:43 P M CDT Height 177.8 cm (5' 10 ) 05/18/2024 3:43 PM CDT Body Mass Index 27.06 05/18/2024 3:43 PM CDT documented in this encounter Progress Notes * Kevin John MD - 05/18/2024 3:45 PM CDT Pt. Name/Age/: Jean Dodge 83 y.o. 1940 Date of Consultation: 05/18/2024 Requesting/Referring Physician: Kevin John MD Chief Complaint Patient presents with Nephrolithiasis History of Present Illness 05/18/24 Subjective Alfred Dodge is a 83 y.o. male who is here to follow up on imaging ordered at last visit. Imaging study: ct angiogram 05/04/24 Reason for imaging: pain Results of imaging: distal left 6mm stone Review of Systems 14 point review of symptoms was normal except for relevant issues noted in the HPI Physical Exam Vital Signs BP 148/63 (BP Location: Left arm, Patient Position: Sitting, BP Cuff Size: Adult) Pulse (!) 43 Ht 1.778 m (5' 10 ) Wt 85.5 kg (188 lb 9.6 oz) BMI 27.06 kg/m?? GEN: NAD, A/O x3 Eyes: normal sclera Lungs: Breathing comfortably, no notable wheezing Musculoskeletal: Normal strength and gait Neurologic: No neurologic deficits Psychiatric: Normal Mood Impression Problem List Items Addressed This Visit None Visit Diagnoses Kidney stone Relevant Orders POCT Urine Dipstick (INTRFC) (Completed) Discussion Nephrolithiasis Treatment Discussion I discussed with the patient treatment options for stones including observation, trial of passage, extracorporeal shock wave lithotripsy, ureteroscopy, and percutaneous nephrostolithotomy. I focused the discussion on what appears to be the best option or options given the specifics of the cases including stone size and location. I provided reasonable expectations for treatment success with each option. I discussed the risks of each option including: Observation: meant for non obstructing stones <10mm, the stone may increase in size Trial of passage: failure to pass stone, growth of stone, pain or infection requiring admission andurgent surgery, ureteral scarring, renal failure ESWL: failure to pass the stone or stone fragments, renal hematoma, nephrosclerosis, need for further procedures Ureteroscopy: failure to identify stone, failure to reach stone with one procedure, need for subsequent procedures, pain, infection, ureteral injury PCNL: infection, bleeding, hydro or hemothorax, urinary leak or fistula Plan kub Follow up Will call with results, follow up to be determined This patient has acute illness. The problem is Not yet at treatment goal. Kidney stones if left untreated can lead to obstruction of the kidneys which may lead to acute or chronic renal failure. Patient Active Problem List Diagnosis Pulmonary nodule Renal lesion Calculus of gallbladder without cholecystitis without obstruction No past surgical history on file. Current Outpatient Medications: alfuzosin ER (Uroxatral) 10 MG 24 hr tablet, Take 20 mg by mouth 1 time each day., Disp: , Rfl: finasteride (Proscar) 5 MG tablet, Take 5 mg by mouth 1 time each day., Disp: , Rfl: tamsulosin (Flomax) 0.4 MG 24 hr capsule, Take 1 capsule by mouth 1 time each day. (Patient not taking: Reported on 05/18/2024), Disp: 30 capsule, Rfl: 0 Allergies Allergen Reactions Ciprofloxacin Pain in calves Indomethacin Calf leg pain No family history on file. Social History Tobacco Use Smoking status: Never Electronically signed by: Kevin John MD, 05/18/2024 documented in this encounter Plan of Treatment Upcoming Encounters Date Type Department Care Team (Late st Contact Info) Description 08/01/2024 3:30 PM COTTON WRINGER Office Visit [facility] [address] [phone] Kevin John MD [address] [facility] [address] [place] [address] documented as of this encounter Procedures Procedure Name Priority Date/Time Associated Diagnosis Comments POCT URINE DIPSTICK (INTRFC) Routine 05/18/2024 3:56 PM CDT Kidney stone documented in this [...] UA Nit Negative Negative [facility] POC Device [id number] [facility] POC Oper ID [id number] [facility] POC Performing Location [facility] Urine 05/18/2024 3:56 PM CDT Kevin John MD LAB POINT OF CARE TEST DOCK ED DEVICE ORDERABLES Final Result [facility] documented in this encounter Visit Diagnoses Diagnosis Benign prostatic hyperplasia without lower urinary tract symptoms- Primary Kidney stone Calculus of kidney Kidney stone Calculus of kidney documented in this encounter Care Teams Customer Services Coordinator Relationship Specialty Start Date End Date Kevin John MD [address] [facility] [address] [place] [address] PCP - General 10/16/20 documented as of this encounter
--- OUTSIDE RECORDS SUMMARY | 2024-07-29 18:35 | XMS_ITS | Encounter Summary ---
Author Organization [facility] Address [address] [place] [address] Care Team Providers Care Material Handler Floorperson Name Role Phone Kevin John MD Primary Care Provider [phone] [phone] Reason for Visit * Reason Comments Benign Prostatic Hypertrophy Wants to di scuss surgery Encounter Details Date Type Department Care Team (Late st Contact Info) Description 03/06/2024 9:30 AM CDT Office Visit [facility] [address] [facility] [address] [place] [phone] Kevin John MD [address] [facility] [address] [place] [address] Nocturia (Primary Dx); Benign prostatic hyperplasia without lower urinary tract symptoms Social History Tobacco Use Types Packs/Day Years Used Date Smoking Tobacco: Never Sex and Gender Information Value Date Recorded Sex Assigned at Male 02/08/2024 1:37 PM CDT Legal Sex Male 6:20 AM CDT Gender Identity Male 10/17/2023 6:20 AM CDT Sexual Orientation Straight 02/08/2024 1: 37 PM CDT Travel History Travel Start Travel End [place] 07/17/2024 07/24/2024 documented as of this encounter Last Filed Vital Signs Vital Sign Reading Time Taken Comments Blood Pressure 130/70 03/06/2024 9:19 AM CDT Pulse 49 03/06/2024 9:19 AM CDT Temperature - - Respiratory Rate - - Oxygen Saturation - - Inhaled Oxygen Concentration - - Weight 86.4 kg (190 lb 6.4 oz) 03/06/2024 9:19 A M CDT Height 177.8 cm (5' 10 ) 03/06/2024 9:19 AM CDT Body Mass Index 27.32 03/06/2024 9:19 AM CDT documented in this encounter Progress Notes * Kevin John MD - 03/06/2024 9:30 AM CDT Pt. Name/Age/: Jean Dodge 83 y.o. 1940 Date of Consultation: 03/06/2024 Requesting/Referring Physician: Kevin John MD Chief Complaint bph History of Present Illness 80yoM is here for an annual follow up. New urologic complaints: ok Active/prior urologic issues: h/o prior biopsy, elevated psa bph ED Urologic medications: uroxatral finasteride cialis LUTS: nocturia 3-5x low is slow Hematuria: n UTIs: n UA: microhema PVR: 60cc IPSS: n US shows 200cc prostate Last PSA: 2.6 Date of last PSA: 07/2018 [1] 10/19/22 here for follow up on alfuzosin and finasteride PVR 40cc [1] 10/28/23 83yo M here for follow up doing well on finasteride and flomax PVR 56cc nocturia x3 03/06/24 83yo M here for fu to discuss surgical options Nocturia up to 3-4x or even up to 5 to 6 Flow in the am is slow Review of Systems 14 point review of symptoms was normal except for relevant issues noted in the HPI Physical Exam Vital Signs BP 130/70 (BP Location: Left arm, BP Cuff Size: Adult) Pulse (!) 49 Ht 1.778 m (5' 10 ) Wt 86.4 kg (190 lb 6.4 oz) BMI 27.32 kg/m?? GEN: NAD, A/O x3 Eyes: normal sclera Lungs: Breathing comfortably, no notable wheezing Musculoskeletal: Normal strength and gait Neurologic: No neurologic deficits Psychiatric: Normal Mood Impression Problem List Items Addressed This Visit None Visit Diagnoses Benign prostatic hyperplasia without lower urinary tract symptoms Relevant Orders POCT Urine Dipstick (INTRFC) (Completed) Plan Discussed holep in detail BPH Discussion I discussed the natural history of BPH with the patient. He understands that BPH is a common benigncondition in aging men and that the symptoms often worsen over time. I discussed all treatment options appropriate for the patient which may include the following: surveillance, alpha nadira therapy, 5-alpha reductase inhibitors, and procedures such as Urolift, Greenlight, TURP, and simple prostatectomy. The patient understands the risks and benefits of each treatment we discussed including failure to improve as well as: Surveillance: worsening outlet obstruction, bladder dysfunction, retention, renal failure Alpha Blockers: dizziness, sleepiness, retrograde ejaculation 5-alpha reductase: decreased semen volume, artificial change in PSA, sexual side effects Anticholinergics: dry mouth, constipation, cognitive side effects including dementia Beta 3 agonists: increased blood pressure PDE-5 inhibitor: muscle pain, reflux Urolift: retention, hematuria, need for further procedures Greenlight: infection, hematuria, bladder neck contracture, incontinence TURP: infection, hematuria, bladder neck contracture, incontinence HOLEP: infection, hematuria, temporary urge or stress incontinence Robotic Simple prostatectomy: infection, hematuria, bladder neck contracture, incontinence Follow up Schedule surgery & postop appt Past Medical History There is no problem list on file for this patient. Past Surgical History No past surgical history on file. Current Medications Current Outpatient Medications: alfuzosin ER (Uroxatral) 10 MG 24 hr tablet, Take 20 mg by mouth 1 time each day., Disp: , Rfl: finasteride (Proscar) 5 MG tablet, Take 5 mg by mouth 1 time each day., Disp: , Rfl: Allergies Allergies Allergen Reactions Ciprofloxacin Pain in calves Family History No family history on file. Social History Social History Socioeconomic History Marital status: Spouse name: Not on file Number of children: Not on file Years of education: Not on file Highest education level: Not on file Occupational History Not on file Tobacco Use Smoking status: Never Smokeless tobacco: Not on file Substance and Sexual Activity Alcohol use: Not on file Drug use: Not on file Sexual activity: Not on file Other Topics Concern Not on file Social History Narrative Not on file Social Determinants of Health Financial Resource Strain: Not on file Food Insecurity: No Food Insecurity (03/03/2024) Received from [facility] Vital Sign Worried About Running Out of Food in the Last Year: Never true Ran Out of Food in the Last Year: Never true Transportation Needs: Not on file Physical Activity: Not on file Stress: Not on file Social Connections: Not on file Intimate Partner Violence: Not on file Housing Stability: Not on file Electronically signed by: Kevin John MD, 03/06/2024 documented in this encounter Plan of Treatment Upcoming Encounters Date Type Department Care Team (Late st Contact Info) Description 08/01/2024 3:30 PM MOLD BLOWER Office Visit [facility] [address] [facility] [address] [place] [phone] Kevin John MD [address] [facility] [address] [place] [address] Scheduled Orders Name Type Priority Associated Diagnoses Orde r Schedule Bladder Scan (PVR) Procedure Routine Benign prostatic hyperplasia without lower urinary tract symptoms Ordered: 03/06/2024 documented as of this encounter Procedures Procedure Name Priority Date/Time Associated Diagnosis Comments POCT URINE DIPSTICK (INTRFC) Routine 03/06/2024 9:23 AM CDT Benign prostatic hyperplasia without lower urinary tract symptoms documented in this encounter Results * (ABNORMAL) POCT Urine Dipstick (INTRFC) (03/06/2024 9:23 AM CDT) POC UA Turbid Clear Clear [facility] P[facility] UA Color Yellow Yellow [facility] UA pH 7.5 5.0 - 8.0 [facility] UA SG 1.020 <1.005 - 1.025 [facility] P[facility] UA Glu Negative Negative mg/dL [facility] UA Bld Negative Negative [facility] UA Ket Negative Negative mg/dL [facility] UA Protein 30(A) Negative mg/dL [facility] UA Uro 0.2 0.1 - 1.0 E.U./dL [facility] UA Bili Negative Negative [facility] UA Leuk Est Negative Negative [facility] UA Nit Negative Negative [facility] Device [id number] [facility] POC Oper ID [id number] [facility] POC Performing Location [facility] Urine 03/06/2024 9:23 AM CDT us Kevin John MD LAB POINT OF CARE TEST DOCK ED DEVICE ORDERABLES Final Result [facility] documented in this encounter Visit Diagnoses Diagnosis Nocturia- Primary Benign prostatic hyperplasia without lower urinary tract symptoms documented in this encounter Care Teams Material Handler Floorperson Relationship Specialty Start Date End Date Kevin John MD [address] [address] PCP - General 10/16/20 documented as of this encounter
--- OUTSIDE RECORDS SUMMARY | 2024-07-29 18:35 | XMS_ITS | Encounter Summary ---
Author Organization [facility] Address [address] [facility] [place] [address] Care Team Providers Care Outside Salesperson Name Role Phone Kevin John MD Primary Care Provider +1 [phone] Encounter Details Date Type Department Care Team (Latest Contact Info) Description 07/12/2024 Travel Social History Tobacco Use Types Packs/Day Years [...] CDT Travel History Travel Start Travel End [place] 07/17/2024 07/24/2024 documented as of this encounter Plan of Treatment Upcoming Encounters Date Type Department Care Team (Late st Contact Info) Description 08/01/2024 3:30 PM SWIMMING POOL MAINTENANCE SUPERVISOR Office Visit [facility] [address] [facility] [address] [place] [phone] Kevin John MD [address] [facility] [address] [place] [address] documented as of this encounter Visit Diagnoses Not on filedocumented in this encounter Care Teams Outside Salesperson Relationship Specialty Start Date End Date Kevin John MD [address] [address] PCP - General 10/16/20 documented as of this encounter
--- OUTSIDE RECORDS SUMMARY | 2024-07-29 18:35 | XMS_ITS | Clinical Summary ---
Author Organization [facility] Address [address] [place] [address] Care Team Providers Care Epidemiology Intern Name Role Phone Tee Turk MD Primary Care Provider +1- [phone] Social History Tobacco Use Types Packs/Day Years Used Date Smoking Tobacco: Never Assessed Sex and Gender Information Value Date Recorded Sex Assigned at Not on file Legal Sex Male 7:51 AM SYSTEM SUPPORT ANALYST Gender Identity Not on file Sexual Orientation Not on file Plan of Treatment Not on file Insurance [employer] [facility] PPO Care Teams Epidemiology Intern Relationship Specialty Start Date End Date Tee Turk MD PCP - General Family Medicine 04/13/18
--- OUTSIDE RECORDS SUMMARY | 2024-07-29 18:35 | XMS_ITS | Encounter Summary ---
Author Organization [facility] Address [address] [facility] [place] [address] Care Team Providers Care Process Equipment Operator Name Role Phone Kevin John MD Primary Care Provider [phone] Encounter Details Date Type Department Care Team (Latest Contact Info) Description 05/04/2024 Travel Social History Tobacco Use Types Packs/Day [...] st Contact Info) Description 08/01/2024 3:30 PM CAFETERIA ATTENDANT Office Visit [facility] [address] [facility] [address] [place] [phone] Kevin John MD [address] [facility] [address] [place] [address] documented as of this encounter Visit Diagnoses Not on filedocumented in this encounter Care Teams Process Equipment Operator Relationship Specialty Start Date End Date Kevin John MD [address] [address] PCP - General 10/16/20 documented as of this encounter
--- OUTSIDE RECORDS SUMMARY | 2024-07-29 18:35 | XMS_ITS | Encounter Summary ---
Author Organization [facility] Address [address] [place] [address] Care Team Providers Care Hemotherapist Name Role Phone Kevin John MD Primary Care Provider [phone]- [phone] Encounter Details Date Type Department Care Team (Late st Contact Info) Description 05/23/2024 Results Follow-Up [facility] [address] [facility] [address] [place] [phone] Kevin John MD [address] [place] [address] Kidney stone (Primary Dx) Social History Tobacco Use Types Packs/Day Years [...] CDT Travel History Travel Start Travel End [place] 07/17/2024 07/24/2024 documented as of this encounter Plan of Treatment Upcoming Encounters Date Type Department Care Team (Late st Contact Info) Description 08/01/2024 3:30 PM QUALITY MANAGEMENT COORDINATOR Office Visit [facility] [address] [facility] [address] [place] [phone] Kevin John MD [address] [facility] [address] [place] [phone] documented as of this encounter Results * US renal complete (07/12/2024 11:26 AM QUALITY MANAGEMENT COORDINATOR) Anatomical Region Laterality Modality Kidney Ultrasound Addenda Addendum by Ines John MD on 07/14/2024 11:32 PM QUALITY MANAGEMENT COORDINATOR Prostate: The prostate gland volume measures 242 cc. ELECTRONICALLY SIGNED BY INSE JOHN MD ON 07/14/2024 AT 23:32. Impressions 07/14/2024 11:31 PM QUALITY MANAGEMENT COORDINATOR 1. ?? Echogenic 1.2 cm focus left to the bladder in the region of the left distal left ureter, may represent a stone. No hydronephrosis. 2. ?? Severe prostatomegaly ELECTRONICALLY SIGNED BY INES JOHN MD ON 07/14/2024 AT 23:31. Narrative 07/14/2024 11:31 PM QUALITY MANAGEMENT COORDINATOR PROCEDURE INFORMATION: Exam: US Retroperitoneal, Complete, Kidneys [...] prostate gland volume measures 242. Procedure Note Ines John MD - 07/14/2024 PROCEDURE INFORMATION: Exam: [...] hydronephrosis. 2. Severe prostatomegaly ELECTRONICALLY SIGNED BY INES JOHN MD ON 07/14/2024 AT 23:31. Kevin John MD IM US PROCEDURES Edited Re sult - Final documented in this encounter Visit Diagnoses Diagnosis Kidney stone- Primary Calculus of kidney Kidney stone Calculus of kidney documented in this encounter Care Teams Hemotherapist Relationship Specialty Start Date End Date Kevin John MD [address] [facility] [address] [place] [phone] PCP - General 10/16/20 documented as of this encounter
--- OUTSIDE RECORDS SUMMARY | 2024-07-29 18:35 | XMS_ITS | Encounter Summary ---
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 (Emergency) [address] [place] [phone] [place] [address] [place] [address] Left flank pain (Primary Dx); Ureterolithiasis; Pulmonary nodule; Renal lesion; Calculus of gallbladder without cholecystitis without obstruction Discharge Disposition: Home Social History Tobacco Use Types Packs/Day Years [...] Travel Start Travel End [place] 07/17/2024 07/24/2024 documented as of this encounter Last Filed Vital Signs Vital Sign Reading Time Taken Comments Blood Pressure 140/73 05/05/2024 6:38 AM CDT Pulse 56 05/05/2024 6:38 AM CDT Temperature 36.7 ??C (98 ??F) 05/05/2024 6:38 AM CDT Respiratory Rate 18 05/05/2024 6:38 AM CDT Oxygen Saturation 99% 05/05/2024 6:38 AM CDT Inhaled Oxygen Concentration - - Weight 86.3 kg (190 lb 4.8 oz) 05/04/2024 10:57 PM CDT Height 177.8 cm (5' 10 ) 05/04/2024 10:57 PM CDT Body Mass Index 27.31 05/04/2024 10:57 PM CDT documented in this encounter Functional Status * Intimate Partner Violence Question Answer Date of Assessment Author Within the last year, have y ou been humiliated or emotionally abused in other ways by your partner or ex-partner? No 05/05/2024 1:17 AM CDT Malathi Leroy RN Within the last year, have y ou been afraid of your partner or ex-partner? No 05/05/2024 1:17 AM CDT Rolanda Leroy RN Within the last year, have y ou been raped or forced to have any kind of sexual activity by your partner or ex-partner? No 05/05/2024 1:17 AM CDT Malathi Leroy RN Within the last year, have y ou been kicked, hit, slapped, or otherwise physically hurt by your partner or ex-partner? No 05/05/2024 1:17 AM CDT Malathi Leroy RN * Calculated C-SSRS Risk Score (Lifetime/Recent) Answer Date of Assessment Author No Risk Indicated 05/05/2024 1:17 AM CDRolanda Arreguin RN * [place] Suicide Severity Rating Scale (Screener/Recent Self-Report) Question Answer Date of Assessment Author 1. Wish to be (Past 1 Month) No 024 1:17 AM Rolanda Kaur RN 2. Non-Specific Active Suici nereyda Thoughts (Past 1 Month) No 05/05/2024 1:17 AM Javon Kaur RN 6. Suicidal Behavior (Lifetime) No 4 1:17 AM Rolanda Kaur RN documented as of this encounter Discharge Instructions * Attachments The following attachments cannot be sent through Care Everywhere. * Kidney Stone with Pain (Lebanese) documented in this encounter Medications at Time of Discharge alfuzosin ER (Uroxatral) 10 MG 24 hr tablet Take 20 mg by mouth 1 time each day. finasteride (Proscar) 5 MG tablet Take 5 mg by mouth 1 time each day. tamsulosin (Flomax) 0.4 MG 24 hr capsule Take 1 capsule by mouth 1 time each day. 30 capsule 05/05/2024 HYDROcodone-acetamin ophen (Cameron) 10-325 MG tabletIndications:Le ft flank pain Take 1 tablet by mouth every 6 hours if needed for severe pain (7-10) for up to 7 days. 12 tablet 05/05/2024 4 ondansetron ODT (Zofran-ODT) 4 MG disintegrating tablet Take 1 tablet by mouth every 8 hours if needed for nausea or vomiting for up to 7 days. 20 tablet 05/05/2024 4 documented as of this encounter ED Notes * Mihir Daley MD - 05/04/2024 10:38 PM CDT History of Present Illness: Chief Complaint: Patient presents with Abdominal Pain Flank Pain Patient is a 83 y/o male with PMH of bradycardia presents to ED for abdominal pain since 4 hours ago. He notes a difficult bowel movement with hard stools at 1900. He then developed sudden left flankpain radiating to the LLQ. Denies nausea or vomiting. Denies fever or chills. Of note, he had a heart monitor placed 1.5 weeks ago for bradycardia. He also had COVID 3 weeks ago, symptoms resolved now. 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 No pertinent past medical history. History reviewed. No pertinent surgical history. No family history on file. Social History: Tobacco Use Smoking status: Never Smokeless tobacco: Not on file Substance Use Topics Alcohol use: Not on file Drug use: Not on file Current Outpatient Medications Medication Instructions alfuzosin ER (UROXATRAL) 20 mg, Oral, Daily RT finasteride (PROSCAR) 5 mg, Oral, Daily RT HYDROcodone-acetaminophen (Cameron) 10-325 MG tablet 1 tablet, Oral, Every 6 hours PRN ondansetron ODT (ZOFRAN-ODT) 4 mg, Oral, Every 8 hours PRN tamsulosin (FLOMAX) 0.4 mg, Oral, Daily Review of Systems: Review of Systems Constitutional: Negative for chills and fever. HENT: Negative for ear pain and sore throat. Eyes: Negative for pain and visual disturbance. Respiratory: Negative for cough and shortness of breath. Cardiovascular: Negative for chest pain and palpitations. Gastrointestinal: Positive for abdominal pain. Negative for constipation, diarrhea, nausea and vomiting. Hard stools Genitourinary: Negative for dysuria and hematuria. Musculoskeletal: Negative for arthralgias and back pain. Skin: Negative for color change and rash. Neurological: Negative for seizures and syncope. All other systems reviewed and are negative. Triage Vitals: BP: (!) 197/78, Heart Rate: 64, Temp: 36.4 ??C (97.6 ??F), Resp: 24, SpO2: 100 %, Height: 177.8 cm (5' 10 ), Weight: 86.3 kg (190 lb 4.8 oz) Physical Exam: Vitals and nursing note reviewed. Constitutional: General: He is not in acute distress. Appearance: He is well-developed. HENT: Head: Normocephalic and atraumatic. Eyes: Conjunctiva/sclera: Conjunctivae normal. Cardiovascular: Rate and Rhythm: Normal rate and regular rhythm. Chest Wall: PMI is not displaced. Pulses: No decreased pulses. Radial pulses are 2+ on the right side and 2+ on the left side. Dorsalis pedis pulses are 2+ on the right side and 2+ on the left side. Posterior tibial pulses are 2+ on the right side and 2+ on the left side. Heart sounds: No murmur heard. Pulmonary: Effort: Pulmonary effort is normal. No respiratory distress. Breath sounds: Normal breath sounds. Abdominal: Palpations: Abdomen is soft. Tenderness: There is no abdominal tenderness. Musculoskeletal: General: No swelling. Cervical back: Neck supple. Right lower leg: No edema. Left lower leg: No edema. Skin: General: Skin is warm and dry. Capillary Refill: Capillary refill takes less than 2 seconds. Neurological: Mental Status: He is alert. Psychiatric: Mood and Affect: Mood normal. Procedures Performed: Procedures ED Course : Medical Decision Making 83-year-old male here with significantly elevated blood pressure and acute onset left flank pain that is nonmigrating. Given his elevated blood pressure and age I am concerned about aortic pathology.More likely however it is ureterolithiasis. Four extremity pulses within normal limits. No focal lauren rologic deficits. Plan to obtain CTA chest abdomen pelvis, labs, and reassess the patient. Problems Addressed: Left flank pain: undiagnosed new problem with uncertain prognosis Amount and/or Complexity of Data Reviewed Labs: ordered. Radiology: ordered. Risk Prescription drug management. ED Course: as of 05/05/24 0615 [facility] May 04, 2024 2257 Patient seen. [PT] Fri May 05, 2024 0609 I independently viewed the patients labs and/or radiology results and my interpretation is as follows: Lipase within normal limits. Urinalysis not consistent with urinary tract infection but does show large blood. Liver function test within normal limits. I independently viewed the CBC and my i nterpretation is as follows: CBC shows leukocytosis but is otherwise within normal limits includingnormal hemoglobin and normal platelets. BMP shows mildly elevated creatinine, hypercalcemia, hyperglycemia without anion gap. [AK] 0612 CTA chest abdomen pelvis negative for aortic pathology. Patient has a 6 mm distal left ureteral stone. Incidental finding of prostatomegaly, pelvic lymphadenopathy, pulmonary nodule, cholelithiasis, right kidney lesion. Incidental finding shared with the patient. His pain is currently controlled. Plan to discharge the patient and have him follow-up with urology for further evaluation. The patient was discharged home able to tolerate PO, able to ambulate, afebrile, vital signs reviewed, follow up information given, return precautions given. Findings, DDx, plan and possible outcomes d/w patient. Questions answered. Pt expressed understanding and is comfortable with plan. [AK] ED Course: User Index [AK] Mihir Daley MD [PT] Sofía Sanders Diagnoses as of 05/05/24614 Left flank pain Ureterolithiasis Pulmonary nodule Renal lesion Calculus of gallbladder without cholecystitis without obstruction Last Recorded Vitals: BP: (!) 197/78, Heart Rate: 64, Temp: 36.4 ??C (97.6 ??F), Resp: 24, SpO2: 100 %, Height: 177.8 cm (5' 10 ), Weight: 86.3 kg (190 lb 4.8 oz) Disposition: Discharge Applicable prescriptions New Prescriptions HYDROCODONE-ACETAMINOPHEN (NORCO) 10-325 MG TABLET Take 1 tablet by mouth every 6 hours if needed for severe pain (7-10) for up to 7 days. ONDANSETRON ODT (ZOFRAN-ODT) 4 MG DISINTEGRATING TABLET Take 1 tablet by mouth every 8 hours if needed for nausea or vomiting for up to 7 days. TAMSULOSIN (FLOMAX) 0.4 MG 24 HR CAPSULE Take 1 capsule by mouth 1 time each day. Scoring Tools [place] Coma Scale Score: 15 Dr. Mihir Daley MD personally performed the services described in this documentation on this date as scribed by Sofía Sanders in my presence. I have reviewed and verified that all the information is accurate and true. Mihir Daley MD Dictated using Personaling software - please excuse any errors. Please contact me with any questions or concerns regarding the note. 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 [facility] [address] [place] [phone] Kevin John MD [address] [place] [address] documented as of this encounter Procedures Procedure Name Priority Date/Time Associated Diagnosis Comments CT ANGIOGRAM CHEST ABDOMEN PELVIS Emergent 05/05/2024 3:00 AM CDT AUTOMATED DIFFERENTIAL STAT 05/05/2024 1:01 AM CDT COMPLETE BLOOD COUNT STAT 05/05/2024 1:01 AM CDT UA WITH CULTURE IF INDICATED STAT 05/05/2024 1:01 AM CDT COMPLETE BLOOD COUNT W/DIFF AND PLATELET STAT 05/05/2024 1:01 AM CDT LIPASE LEVEL STAT 05/05/2024 1:01 AM CDT HEPATIC FUNCTION PANEL STAT 05/05/2024 1:01 AM CDT BASIC METABOLIC PANEL STAT 05/05/2024 1:01 AM CDT documented in this encounter Results * CT angiogram chest abdomen pelvis (05/05/2024 [...] follow up imaging. COMMENTS: Consistent with the [employer]'s Incidental Findings Committee white [...] 2017. Radiology. 2017;284(1):228-243. ELECTRONICALLY SIGNED BY KACIE YOUNG MD ON 05/05/2024 AT 05:22. Narrative 05/05/2024 [...] noted. Soft tissues: Unremarkable. Procedure Note Kacie Young MD - 05/05/2024 Radiation Dose CTDIVOL = [...] follow up imaging. COMMENTS: Consistent with the [employer]'s Incidental Findings Committee white [...] 2017. Radiology. 2017;284(1):228-243. ELECTRONICALLY SIGNED BY KACIE YOUNG MD ON 05/05/2024 AT 05:22. Mihir Daley MD IMG CT PROCEDURES Fi nal Result * (ABNORMAL) Automated Differential (05/05/2024 1:01 AM CDT) Segs % 71.0 40.6 - 75.7 % 05/05/2024 1:39 AM CDT [facility] Lymphs % 22.3 14.9 - 47.8 % 05/05/2024 1:39 AM CDT [facility] Monos % 5.6 4.2 - 12.6 % 05/05/2024 1:39 AM CDT [facility] Eos % 0.3 0.2 - 5.0 % 05/05/2024 1:39 AM CDT [facility] Basos % 0.4 0.2 - 1.3 % 05/05/2024 1:39 AM CDT [facility] Immature Grans % 0.4 0.1 - 1.0 % 05/05/2024 1:39 AM CDT [facility] Segs # 11.13(H) 1.48 - 6.56 10*3/uL 05/05/2024 1:39 AM CDT [facility] Lymphs # 3.50 0.86 - 3.84 10*3/uL 05/05/2024 1:39 AM CDT [facility] Monos # 0.87 0.29 - 0.96 10*3/uL 05/05/2024 1:39 AM CDT [facility] Eos # 0.04 0.00 - 0.46 10*3/uL 05/05/2024 1:39 AM CDT [facility] Basos # 0.06 0.01 - 0.08 10*3/uL 05/05/2024 1:39 AM CDT [facility] Imm Grans # 0.06 0.01 - 0.07 10*3/uL 05/05/2024 1:39 AM CDT [facility] Blood Venous blood specimen / Unknown Venipuncture / Unknown 05/05/2024 1:01 AM CDT 05/05/2024 1:30 AM CDT Mihir Daley MD LAB BLOOD ORDERABLES Final Result [facility] [address] [facility] [place] [address] * (ABNORMAL) Complete Blood Count (05/05/2024 1:01 AM CDT) WBC 15.66(H) 3.92-.10.07 10*3/uL 05/10/2024 5:13 PM CDT [facility] RBC 4.86 4.27 - 6.02 10*6/uL 05/10/2024 5:13 PM CDT [facility] NRBC % 0.0 0 /100 WBC 05/10/2024 5:13 PM CDT [facility] Hgb 14.2 12.4 - 17.4 g/dL 05/10/2024 5:13 PM CDT [facility] Hct 44.7 37.1 - 50.8 % 05/10/2024 5:13 PM CDT [facility] MCV 92.0 79.2 - 96.8 fL 05/10/2024 5:13 PM CDT [facility] MCH 29.2 26.1 - 32.4 pg 05/10/2024 5:13 PM CDT [facility] MCHC 31.8 31.2 - 36.1 g/dL 05/10/2024 5:13 PM CDT [facility] RDW - SD 43.2(H) 34.0 - 37.0 fL 05/10/2024 5:13 PM CDT [facility] Plt Count 130(L) 160 - 381 10*3/uL 05/10/2024 5:13 PM CDT [facility] MPV 13.0(H) 9.0 - 12.0 fL 05/10/2024 5:13 PM CDT [facility] Blood Venous blood specimen / Unknown Venipuncture / Unknown 05/05/2024 1:01 AM CDT 05/05/2024 1:30 AM CDT Mihir Daley MD LAB BLOOD ORDERABLES Edited Result - Final [facility] [address] [place] [address] * (ABNORMAL) UA with culture if indicated (05/05/2024 1:01 AM CDT) UA Color Yellow Yellow 05/05/2024 1:46 AM CDT [facility] UA Turbidity Slight Cloudy(A) Clear 05/05/2024 1:46 AM CDT [facility] UA Spec Grav 1.018 <=1.030 05/05/2024 1:46 AM CDT [facility] UA pH 7.0 5.0 - 8.0 05/05/2024 1:46 AM CDT [facility] UA Protein 30(A) Negative mg/dL 05/05/2024 1:46 AM CDT [facility] UA Glucose Negative Negative mg/dL 05/05/2024 1:46 AM CDT [facility] UA Ketones Trace(A) Negative mg/dL 05/05/2024 1:46 AM CDT [facility] UA Bilirubin Negative Negative mg/dL 05/05/2024 1:46 AM CDT [facility] UA Blood Large(A) Negative 05/05/2024 1:46 AM CDT [facility] UA Urobilinogen <=1.0 0.1 - 1.0 mg/dL 05/05/2024 1:46 AM CDT [facility] UA Nitrite Negative Negative 05/05/2024 1:46 AM CDT [facility] UA Leuk Esterase Trace(A) Negative 05/05/20 1:46 AM CDT [facility] UA Ascorbic Acid Negative Negative 05/05/20 1:46 AM CDT [facility] UA Sq Epi None Seen Few /LPF 05/05/2024 1:46 AM CDT [facility] Urine Urine specimen obtained by clean catch procedure / Unknown Non-blood Collection / Unknown 05/05/2024 1:01 AM CDT 05/05/2024 1:30 AM CDT Mihir Daley MD LAB URINE ORDERABLES Final Result Performing Organization Address City/[facility]/ZIP Co de Phone Number [facility] [address] [address] [place] [phone] * Lipase (05/05/2024 1:01 AM CDT) Lipase Lvl 38 12 - 53 U/L 05/05/2024 2:06 AM CDT [facility] Blood Venous blood specimen / Unknown Venipuncture / Unknown 05/05/2024 1:01 AM CDT 05/05/2024 1:30 AM CDT Mihir Daley MD LAB BLOOD ORDERABLES Final Result [facility] [address] [place] [address] * Hepatic Function Panel (05/05/2024 1:01 AM CDT) Protein 6.8 5.7 - 8.2 g/dL 05/05/2024 2:06 AM CDT [facility] Albumin Lvl 4.1 3.4 - 5.0 g/dL 05/05/2024 2:06 AM CDT [facility] Bilirubin Total 0.85 0.20 - 1.10 mg/dL 05/05/2024 2:06 AM CDT [facility] Comment:The pediatric refere nce ranges for this test represent a CLSI-based transference of the Siemens study of pediatric reference intervals for the Siemens Atellica analyzer (CLSI EP28). [facility] has not internally validated these reference ranges and therefore they should be used only in the context of a thorough clinical assessment. Bilirubin Direct 0.3 <=0.3 mg/dL 05/05/2024 2:06 AM CDT [facility] Bilirubin Indirect 0.6 0.0 - 1.0 mg/dL 05/05/2024 2:06 AM CDT [facility] Alkaline Phosphatase 85 46 - 116 U/L 05/05/2024 2:06 AM CDT [facility] AST 18 12 - 40 U/L 05/05/2024 2:06 AM CDT [facility] ALT 17 7 - 40 U/L 05/05/2024 2:06 AM CDT [facility] Globulin, Calc 2.7 2.0 - 4.0 g/dL 05/05/2024 2:06 AM CDT [facility] Albumin/Globulin Ratio 1.52 0.7 - 1.6 05/05/2024 2:06 AM CDT [facility] Blood Venous blood specimen / Unknown Venipuncture / Unknown 05/05/2024 1:01 AM CDT 05/05/2024 1:30 AM CDT Mihir Daley MD LAB BLOOD ORDERABLES Final Result [facility] [id number] [facility] [facility] [place] [address] * (ABNORMAL) Basic Metabolic Panel (05/05/2024 1:01 AM CDT) [facility] Signature Glucose Lvl 129(H) 70 - 99 mg/dL 05/05/2024 2:06 AM CDT [facility] Comment:Adult reference rang e values reflect the clinical guidelines of the [place] [employer]. BUN 21 9 - 23 mg/dL 05/05/2024 2:06 AM CDT [facility] Creatinine Lvl 1.55(H) 0.7 - 1.30 mg/dL 05/05/2024 2:06 AM CDT [facility] Sodium Lvl 142 136 - 145 mEq/L 05/05/2024 2:06 AM CDT [facility] Potassium Lvl 4.5 3.4 - 4.5 mEq/L 05/05/2024 2:06 AM CDT [facility] Chloride Lvl 111(H) 98 - 107 mEq/L 05/05/2024 2:06 AM CDT [facility] CO2 Lvl 26.0 20.0 - 31.0 mEq/L 05/05/2024 2:06 AM CDT [facility] Anion Gap 9.5(L) 10.0 - 20.0 mEq/L 05/05/2024 2:06 AM CDT [facility] Calcium Lvl 10.8(H) 8.3 - 10.6 mg/dL 05/05/2024 2:06 AM CDT [facility] eGFR 44(L) >60 mL/min/1.7 3m2 05/05/2024 2:06 AM CDT [facility] Comment: The eGFR is calculated using [...] Daley MD LAB BLOOD ORDERABLES Final Result [facility] [address] [address], [place] [id number] documented in this encounter Visit Diagnoses Diagnosis Left flank pain- Primary Abdominal pain, unspecified site Ureterolithiasis Calculus of ureter Pulmonary nodule Other diseases of lung, not elsewhere classified Renal lesion Calculus of gallbladder without cholecystitis without obstruction Pulmonary nodule Other diseases of lung, not elsewhere classified Renal lesion Calculus of gallbladder without cholecystitis without obstruction documented in this encounter Administered Medications Inactive Administered Medications - up to 3 most recent administrations Medication Order MAR Action Action Date Dose Rate Site HYDROcodone-acetaminophen (Cameron) 5-325 MG per tablet 1 tablet 1 tablet, Oral, Once, On Zeenat 05/04/24 at 2325, For 1 dose Given 05/05/2024 1:30 AM CDT 1 tablet iohexol (OMNIPaque) 350 MG/ML injection 75 mL 75 mL, Intravenous, Once in imaging, Starting on Wed05/05/24 at 0311, For 1 dose Given 05/05/2024 3:11 AM CDT 75 mL lactated Ringer's bolus 500 mL 500 mL, Intravenous, at 500 mL/hr, Administer over 1 Hours, Once, On Zeenat 05/04/24 at 2325, For 1 dose New Bag 05/05/2024 1:29 AM CDT 1,000 mL 500 mL/hr ondansetron (Zofran) injection 4 mg 4 mg, Intravenous, Once, On Zeenat 05/04/24 at 2325, For 1 dose, Administer IVP. Given 05/05/2024 1:30 AM CDT 4 mg sodium chloride (NS) 0.9 % flush 10 mL 10 mL, Intravenous, As needed, line care, Starting on Zeenat 05/04/24 at 2320 documented in this encounter Active and Recently Administered Medications Times are shown in CDT. Scheduled Medication Order 05/03/2024 05/04/2024 05/05/2024 HYDROcodone-acetaminophen (Cameron) 5-325 MG per tablet 1 tablet (COMPLETED) 1 tablet, Oral, Once, On Zeenat 24 at 2325, For 1 dose 0130 (Given - Provid er: Rolanda Leroy RN) iohexol (OMNIPaque) 350 MG/ML injection 75 mL (COMPLETED) 75 mL, Intravenous, Once in imaging, Starting on Wed05/05/24 at 0311, For 1 dose 0311 (Given - Provid er: Claudia Parson) lactated Ringer's bolus 500 mL (COMPLETED) 500 mL, Intravenous, at 500 mL/hr, Administer over 1 Hours, Once, On Zeenat 05/04/24 at 2325, For 1 dose 0129 (New Bag - Prov ider: Rolanda Leroy RN)0530 (Stopped - Provider: Gail Correa RN) ondansetron (Zofran) injection 4 mg (COMPLETED) 4 mg, Intravenous, Once, On Zeenat 05/04/24 at 2325, For 1 dose, Administer IVP. 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
--- OUTSIDE RECORDS SUMMARY | 2024-07-29 18:35 | XMS_ITS | Patient Health Record ---
Author Organization [facility] Address [address] [place] [address] Care Team Providers Care Enameler Name Role Phone NONE, PCP Primary Care Provider UnavailМария QUEZADA M.D., LOLY Unavailable AMEYA JONES MD Unavailable Unavailable Lynda Vallejo Unavailable [phone] Ryann Avendano Unavailable [phone] Allergies Allergen (clinical drug ingredient) Drug/Non Drug Allergy documented on EMR Reaction Allergy Type Onset Date Status indomethacin Indomethacin Unknown Drug Allergy A ctive ciprofloxacin Ciprofloxacin Unknown Drug Allergy Active Results Component Value Reference Range Notes Audiological Assessment-Comp greye Reviewed date:10/28/2023 08:40:31 AM Interpretation: Performing Lab: Notes/Report: CULTURE, EAR, EXTERNAL [facility] Reviewed date:10/01/2023 09:01:28 AM Interpretation: Performing Lab:[facility], [facility] [id number] [facility] Ruth Azevedo Notes/Report: 0 CULTURE, EAR, EXTERNAL SEE NOTE Test Status: Final Specimen Source: Right ear Specimen Quality: Adequate Result: Heavy growth of Staphylococcus aureus Moderate growth of Haemophilus influenzae Susceptibility testing not routinely performed on this isolate. We received a specimen from the EAR with an order for an aerobic or aerobic/anaerobic culture. This body site is not appropriate for the test requested, therefore an aerobic ear culture was performed. If this is not what you intended to order, please contact your local software client architect immediately so that we can adjust our billing appropriately. You may also inquire about alternative or additional testing. S.aureus H.influenzae INT TIMI INT TIMI 1 CIPROFLOXACIN S <=0.5 * CLINDAMYCIN S <=0.25 * ERYTHROMYCIN S <=0.25 * GENTAMICIN S <=0.5 * LEVOFLOXACIN S 0.25 * MOXIFLOXACIN S <=0.25 * OXACILLIN S <=0.25 2 * TETRACYCLINE S <=1 * TRIMETHOPRIM/SULFA S <=10 * VANCOMYCIN S 1 * S=Susceptible I=Intermediate R=Resistant * = Not Tested NR = Not Reported NN = See Therapy Comments THERAPY COMMENTS Note 1: This isolate is beta-lactamase Negative. A Negative result does not rule out resistance to beta-lactam antibiotics due to other mechanisms. Note 2: Oxacillin susceptible staphylococci are susceptible to other penicillinase-stable penicillins (e.g., methicillin, nafcillin), beta- lactam/beta-lactamase inhibitor combinations, and cephems with staphylococcal indications, including cefazolin. CULTURE, EAR, EXTERNAL Micro Number: [id number] CT Sinus, Adult - CPT: 04789 Reviewed date:10/14/2023 08:43:35 AM Interpretation: Performing Lab: Notes/Report: CULTURE, AEROBIC BACTERIA Reviewed date:09/28/2023 08:34:30 AM Interpretation: Performing Lab:[facility] [employer] [facility] [id number] [facility] Ruth Azevedo Notes/Report: 0 CULTURE, AEROBIC BACTERIA SEE COMMENT CULTURE, AEROBIC BACTERIA Micro Number: [id number] Test Status: Final Specimen Source: Right ear Specimen Quality: Inadequate Result: Test not performed. Source is not acceptable for test requested. Reason For Referral Reason [id number] Diagnosis 1 ETD (Eustachian tube dysfunction), bilateral (H69.93) Referral Organization [facility] Referring Provider First Name LOLY Referring Provider Last Name LUIS FELIPE QUEZADA Referring Provider Speciality Otorhinola ryngology Referred Organization [facility] Referred Provider [place] [facility], [place] Referred Address [address],[address] Referred Provider Specialty Otorhinolary ngology Procedure 1 E BALLOON; EUSTACHIA N TUBE DILATION; BILATERAL [id number] ([id number]) General Notes OP, ETBD, acclarent 30 min, Carola Livingston 10/13/2023 04:00:32 PM >PIR Informed, Consents ready, supply order submitted, Rep Ildefonso informed, , Accbrennenrent Irina P2P #[id number] Referral Priority Routine Referral Appointment Date 11/18/2023 Medications Medication SIG (Take, Route, Fr equency, Duration) Notes Start Date End Date Status Finasteride 5 MG 1 tablet Orally Once a day Active Alfuzosin HCl ER 10 MG 2 tablet immediat marie after the same meal Orally Once a day Active Immunizations Vaccine Route Administration Date Status Comme nts Influenza vaccination given elsewhere Unknown 05/03/2014 Administered Influenza vaccination given elsewhere Unknown 03/26/2017 Administered Pneumococcal Vaccination giv en elsewhere Unknown 03/26/2017 Administered Social History Tobacco Use: Social History Observation Description Date Details (start date - stop date) Never Smoker NA - NA Tobacco Use- Question Answer Notes Patient is a Non Smoker Confirmed by patient and/or responsible pa rty Problems Problem Type SNOMED Code ICD Code Onset Dates Problem Status W/U Status Risk Notes Problem Allergic rhinitis caused by pollen (disorder) (43260913) Allergic rhinitis due to pollen (J30.1) Active confirmed Problem Bilateral chronic serous otitis (316712273) Chronic serous otitis media, bilateral (H65.23) Active confirmed Low Problem 89932375 SYLWIA (obstructive sleep apnea) (G47.33) Active confirmed Problem Otitis externa (3907788) Otitis externa (H60.90) Active confirmed Problem 758569654 Right chronic serous otitis media (H65.21) Active confirmed Problem Hearing loss (82802722) Hearing loss, bilateral (H91.93) Active confirmed Problem 248063507 Bilateral sensorineural hearing loss (H90.3) Active confirmed Problem Sensorineural hearing loss, bilateral (828015584) Sensorineural hearing loss; bilateral (H90.3) Active confirmed Problem 09258201 Allergic rhinitis, unspecified seasonality, unspecified trigger (J30.9) Active confirmed Problem 036424298 Seasonal allergi c rhinitis, unspecified trigger (J30.2) Active confirmed Vital Signs Temperature 96.9 degrees Fahrenheit 12/03/2023 Blood pressure diastolic 76 mm Hg 12/03/2023 Weight-kg 92.99 kg 12/03/2023 Height 70 in 12/03/2023 Blood pressure systolic 145 mm Hg 12/03/2023 Weight 205 lbs 12/03/2023 BMI 29.41 12/03/2023 Procedures Procedure Date Ordered Date Performed Result Body Sit e E BALLOON; EUSTACHIAN TUBE D ILATION; BILATERAL 46197 10/13/2023 11/01/2023 N/A Encounters Encounter Location Date Provider Diagnosis [facility] [address] [facility] [address] [place] [address] 09/21/2023 LOLY BRISCOE III Otitis externa H60.90 ; Acute maxillary sinusitis, recurrence not specified J01.00 ; Right chronic serous otitis media H65.21 ; Bilateral sensorineural hearing loss H90.3 ; Chronic dysfunction of right eustachian tube H69.91 and Right acute suppurative otitis media H66.001 [facility] [address] [facility] [address] [place] [address] 09/21/2023 Lynda Vallejo [facility] [address] [facility] [address] [place] [id number] 10/13/2023 LOLY BRISCOE III Bilateral sensorineural hearing loss H90.3 ; Right chronic serous otitis media H65.21 ; ETD (Eustachian tube dysfunction), bilateral H69.93 ; Sinus pressure J34.89 and Allergic rhinitis, unspecified seasonality, unspecified trigger J30.9 [facility] [address] [facility] [address] [place] [address] 10/13/2023 Lyn[place] [facility] [place] [place] [address] [address] [facility] [address] [place] [address] 09/23/2023 LOLY BRISCOE [facility] OFF[facility] [address] [place] [address] 10/01/2023 LOLY BRISCOE III [facility] [address] [facility] [address] [place] [address] 11/18/2023 LOLY BRISCOE III Dysfunction of left Eustachian tube H69.82 [facility] OFF[facility] [address] [facility] [address] [place], [place] [id number] 10/13/2023 LOLY BRISCOE III [facility] OFFICE-CC26 [address] [facility] [address] [place], [place] [phone] 11/16/2023 LOLY BRISCOE [facility] OFFICE [address] [place] [address] 11/19/2023 LOLY BRISCOE [facility] OFFICE [address] [place] [id number] 12/01/[address] [facility] OFFICE [address] [place] [address] 12/03/2023 LOLY BRISCOE [facility] Allergic rhinitis due to pollen J30.1 ; Bilateral sensorineural hearing loss H90.3 and ETD (Eustachian tube dysfunction), bilateral H69.93 [facility] [address] [place] [address] 12/03/2023 Ryann Avendano [facility] - [facility] ID#[id number] [address] [place] [id number] 12/03/2023 Ryann Avendano [facility] [address] [place] [id number] 02/18/2024 LOLY BRISCOE [facility] OFFICE [address] [place] [address] 06/01/2024 Ryann Avendano [facility] [address] [place] [address] 07/13/2024 Ryann Avendano Assessments Encounter Date Diagnosis (ICD Code) Assessment Notes Treatment Notes Treatment Clinical Notes Section Notes 09/21/2023 Otitis externa (ICD-10 - H60.90) 10/13/2023 Right chronic serous otitis media (ICD-10 - H65.21) PE tube placed today. SUbjective improvement in hearing 10/13/2023 Bilateral sensorineural hearing loss (ICD-10 - H90.3) 09/21/2023 Acute maxillary sinusitis, recurrence not specified (ICD-10 - J01.00) [facility] Sinus Rinses 2-3 times daily while discolored drainage Rest and drink plenty of fluids. 11/18/2023 Dysfunction of left Eustachian tube (ICD-10 - H69.82) Successful eustachian tube balloon dilation. The patient tolerated the procedure well. No immediate complications apparent. Expected post-operative course discussed. Follow-up in 2 weeks. 12/03/2023 Allergic rhinitis due to pollen (ICD-10 - J30.1) meds as needed 12/03/2023 Bilateral sensorineural hearing loss (ICD-10 - H90.3) stable audio. continue WU use 12/03/2023 ETD (Eustachian tube dysfunction), bilateral (ICD-10 - H69.93) Nice improvement in left ear neg pressure -90 to -18. Should continue to improve Recheck in 9M 10/13/2023 ETD (Eustachian tube dysfunction), bilateral (ICD-10 - H69.93) Recurrent DELMY with multiple sets of tubes over the last several years and chronic pressure on both sides. Recommend proceeding with ETBD as option for alf solution IOP, ETBD, acclarent 30 min 09/21/2023 Right chronic serous otitis media (ICD-10 - H65.21) 10/13/2023 Sinus pressure (ICD-10 - J34.89) CT scan shows no carotid dehiscence and sinuses clear 09/21/2023 Bilateral sensorineural hearing loss (ICD-10 - H90.3) 09/21/2023 Chronic dysfunction of right eustachian tube (ICD-10 - H69.91) Recurrent problem with R AOM w/ perforation. Multiple PE tubes needed. Would benefit from ETBD on R. CT scan at follow-up following audiogram. 10/13/2023 Allergic rhinitis, unspecified seasonality, unspecified trigger (ICD-10 - J30.9) Continue allergy regimen 09/21/2023 Right acute suppurative otitis media (ICD-10 - H66.001) Prescription printed and gave to patient per patient's request [facility] 09/21/2023 Other Keep ears dry Flonase - 2 sprays in each nostril in the morning Afrin - 2 sprays each nostril before bed as needed for congestion for up to 1 week THEN STOP Marlene 24h tablet before bed 10/13/2023 Other Flonase - 2 sprays in each nostril in the morning Marlene 24h tablet before bed Plan Of Treatment No Information Insurance Providers Payer Name Payer Address Payer Phone Subscriber Number Group Number Insured Name Patient Relationship to Insured Coverage Start Date Coverage End Date [place]ARE [place] [address] [employer] [id number] LENCHO SAINZ Self - patient is the insured [facility] [address] [address] [address] [place] [address] [id number] LENCHO SAINZ Self - patient is the insured Medications Administered Medication Instructions Date of Administration Dosage Notes Dexamethasone sodium phos-1MG 02/19/2022 15 mg Rocephin 250 mg 02/19/2022 1 g Medical (General) History Medical History History ICD Code BPH hypercholestrolemia Ear Infections: Yes undefined Hearing Loss: Yes Perforated Ear Drum: Yes Other Conditions: Enlarged Prostate Date of last Flu Shot: 05/2014 Date of last Flu Shot: 2016 Date of last Pneumovax: 2016 Cancer: Yes Date of last Flu Shot: 2019 Date of last Pneumovax: 2018 Surgical History Surgery Date(Month/Year) Tonsillectomy age 4 Tonsillectomy BMT 2003 BMT Jul 2007 Bilateral ET Balloon Dilation 11/18/2023 Hospitalization History Reason Date(Month/Year) see surgical history
--- OUTSIDE RECORDS SUMMARY | 2024-07-29 18:35 | XMS_ITS | Clinical Summary ---
Author Organization [facility] [place] [address] Care Team Providers Care Animal Eviscerator Name Role Phone Unavailable Primary Care Provider Unavailabl e Social History Tobacco Use Types Packs/Day Years Used Date Smoking Tobacco: Never Assessed Sex and Gender Information Value Date Recorded Sex Assigned at Not on file Legal Sex Male 10:20 AM BELT SANDER Gender Identity Not on file Sexual Orientation Not on file Plan of Treatment Upcoming Encounters Date Type Department Care Team ([facility] st Contact Info) Description 09/07/2024 10:30 AM BELT SANDER Appointment General Surgery - [place] [id number] [address] Ricky Thakkar MD [address] [place], [place] [id number] Health Maintenance Due Date Last Done Comments TETANUS SHOT (ADULT) 1955 Zoster Vaccine (1 of 2) 1991 Fall Screen 2006 Pneumococcal 65+ (1 of 1 - PCV) 2006 Flu Vaccine > 6 Months 02/24/2024 COVID-19 Vaccine ( - 2023-2 5 season) 2024 HPV Vaccine Aged Out No longer eligi ble based on patient's age to complete this topic Hepatitis A HMT Aged Out No longer el igible based on patient's age to complete this topic Hepatitis B Vaccine Aged Out No longe r eligible based on patient's age to complete this topic MENINGOCOCCAL ACWY Aged Out No longer eligible based on patient's age to complete this topic Insurance MEDICARE
--- OUTSIDE RECORDS SUMMARY | 2024-07-29 18:35 | XMS_ITS | Encounter Summary ---
Author Organization [facility] Address [address] [place] [address] Care Team Providers Care Hadoop Administrator Name Role Phone Unavailable Primary Care Provider Unavailabl e Encounter Details Date Type Department Care Team (Late st Contact Info) Description 06/12/2014 1:00 AM LINE WORKER - 06/12/2014 11:59 PM LINE WORKER Hospital Encounter [facility] Endoscopy [address] [place] [address] Day Navas MD [address] [place] [address] [address] [place] [address] Discharge Disposition: Conversion Only:Historical Social History Tobacco Use Types Packs/Day Years Used Date Smoking Tobacco: Never Assessed Sex and Gender Information Value Date Recorded Sex Assigned at Not on file Legal Sex Male 7:51 AM LINE WORKER Gender Identity Not on file Sexual Orientation Not on file documented as of this encounter Plan of Treatment Not on file documented as of this encounter Visit Diagnoses Not on filedocumented in this encounter
--- OUTSIDE RECORDS SUMMARY | 2024-07-29 18:35 | XMS_ITS | Encounter Summary ---
Author Organization [facility] Address [address] [place] [address] Care Team Providers Care Work Order Detailer Name Role Phone Kevin John MD Primary Care Provider [phone] Encounter Details Date Type Department Care Team (Late st Contact Info) Description 07/15/2024 Results Follow-Up [facility] [address] [facility] [address] [place] [address] Kevin John MD [address] [place] [address] [address] [place] [address] Social History Tobacco Use Types Packs/Day Years [...] CDT Travel History Travel Start Travel End [place] 07/17/2024 07/24/2024 documented as of this encounter Plan of Treatment Upcoming Encounters Date Type Department Care Team (Late st Contact Info) Description 08/01/2024 3:30 PM FICTION WRITER Office [facility] [address] [address] [facility] [address] [place] [address] Kevin John MD [address] [address] documented as of this encounter Visit Diagnoses Not on filedocumented in this encounter Care Teams Work Order Detailer Relationship Specialty Start Date End Date Kevin John MD [address] [address] PCP - General 10/16/20 documented as of this encounter
--- OUTSIDE RECORDS SUMMARY | 2024-07-29 18:35 | XMS_ITS | Encounter Summary ---
Author Organization [facility] Address [address] [place] [address] Care Team Providers Care Cartography Professor Name Role Phone Kevin John MD Primary Care Provider [phone] Reason for Visit * Reason Onset Date Comments Error (VOID this visit) 05/05/2024 Encounter Details Date Type Department Care Team (Late st Contact Info) Description 05/05/2024 Erroneous Telephone Encounter [facility] Urology [address] [facility] [address] [place] [address] Sarah Parisi PA [address] [place] [address] Social History Tobacco Use Types Packs/Day [...] CDT Travel History Travel Start Travel End [place] 07/17/2024 07/24/2024 documented as of this encounter Functional Status * Intimate Partner Violence Question Answer Date of Assessment Author Within the last year, have y ou been humiliated or emotionally abused in other ways by your partner or ex-partner? No 05/05/2024 1:17 AM Malathi Kaur RN Within the last year, have y ou been afraid of your partner or ex-partner? No 05/05/2024 1:17 AM Rolanda Kaur RN Within the last year, have y ou been raped or forced to have any kind of sexual activity by your partner or ex-partner? No 05/05/2024 1:17 AM Malathi Kaur RN Within the last year, have y ou been kicked, hit, slapped, or otherwise physically hurt by your partner or ex-partner? No 05/05/2024 1:17 AM Malathi Kaur RN * Calculated C-SSRS Risk Score (Lifetime/Recent) Answer Date of Assessment Author No Risk Indicated 05/05/2024 1:17 AM Rolanda Kaur RN * Alva Suicide Severity Rating Scale (Screener/Recent Self-Report) Question Answer Date of Assessment Author 1. Wish to be (Past 1 Month) No 024 1:17 AM Rolanda Kaur RN 2. Non-Specific Active Suici nereyda Thoughts (Past 1 Month) No 05/05/2024 1:17 AM Javon Kaur RN 6. Suicidal Behavior (Lifetime) No 4 1:17 AM Rolanda Kaur RN documented as of this encounter Plan of Treatment Upcoming Encounters Date Type Department Care Team (Late st Contact Info) Description 08/01/2024 3:30 PM SECRETARY OF POLICE Office Visit [facility] [address] [facility] [address] [place] [address] Kevin John MD [address] [address] documented as of this encounter Visit Diagnoses Not on filedocumented in this encounter Care Teams Cartography Professor Relationship Specialty Start Date End Date Kevin John MD [address] [facility] [[email or web address] [address] [place] [address] PCP - General 10/16/20 documented as of this encounter
--- OUTSIDE RECORDS SUMMARY | 2024-07-29 18:35 | XMS_ITS | Encounter Summary ---
Author Organization [facility] Address [address] [place] [address] Care Team Providers Care Analytical Laboratory Technician Name Role Phone Kevin John MD Primary Care Provider [phone] Encounter Details Date Type Department Care Team (Late st Contact Info) Description 07/12/2024 11:30 AM MILL HAND Ancillary Procedure [facility] (Ultrasound) [address] [facility] [address] [place] [phone] Kidney stone Social History Tobacco Use Types [...] CDT Travel History Travel Start Travel End [place] 07/17/2024 07/24/2024 documented as of this encounter Plan of Treatment Upcoming Encounters Date Type Department Care Team (Late st Contact Info) Description 08/01/2024 3:30 PM MILL HAND Office Visit [facility] [address] [facility] [address] [place] [address] Kevin John MD [address] [facility] [address] [place] [address] documented as of this encounter Procedures Procedure Name Priority Date/Time Associated Diagnosis Comments US RENAL COMPLETE Routine 07/12/2024 11: 26 AM MILL HAND Kidney stone documented in this encounter Results * US renal complete (07/12/2024 11:26 AM MILL HAND) Anatomical Region Laterality Modality Kidney Ultrasound Addenda Addendum by Ines John MD on 07/14/2024 11:32 PM MILL HAND Prostate: The prostate gland volume measures 242 cc. ELECTRONICALLY SIGNED BY INES JOHN MD ON 07/14/2024 AT 23:32. Impressions 07/14/2024 11:31 PM MILL HAND 1. ?? Echogenic 1.2 cm focus left to the bladder in the region of the left distal left ureter, may represent a stone. No hydronephrosis. 2. ?? Severe prostatomegaly ELECTRONICALLY SIGNED BY INES JOHN MD ON 07/14/2024 AT 23:31. Narrative 07/14/2024 11:31 PM MILL HAND PROCEDURE INFORMATION: Exam: US Retroperitoneal, Complete, Kidneys [...] kidney documented in this encounter Care Teams Analytical Laboratory Technician Relationship Specialty Start Date End Date Kevin John MD [address] [facility] [place] [facility] [address] [place] [address] PCP - General 10/16/20 documented as of this encounter
--- OUTSIDE RECORDS SUMMARY | 2024-07-29 18:35 | XMS_ITS | Encounter Summary ---
Author Organization [facility] Address [address] [place] [address] Care Team Providers Care Heat Treat Worker Name Role Phone Kevin John MD Primary Care Provider [phone] Encounter Details Date Type Department Care Team (Latest Contact Info) Description 05/22/2024 Travel Social History Tobacco Use Types Packs/Day [...] CDT Travel History Travel Start Travel End [place] 07/17/2024 07/24/2024 documented as of this encounter Plan of Treatment Upcoming Encounters Date Type Department Care Team (Late st Contact Info) Description 08/01/2024 3:30 PM TABLEAU LEAD Office Visit [facility] [address] [facility] [address] [place] [address] Kevin John MD [address] [facility] [address] [place] [address] documented as of this encounter Visit Diagnoses Not on filedocumented in this encounter Care Teams Heat Treat Worker Relationship Specialty Start Date End Date Kevin John MD [address] [address] PCP - General 10/16/20 documented as of this encounter
--- OUTSIDE RECORDS SUMMARY | 2024-07-29 18:35 | XMS_ITS | Encounter Summary ---
Author Organization [facility] Address [address] [place] [address] Care Team Providers Care Manager Terminal Name Role Phone Kevin John MD Primary Care Provider [phone]- [phone] Reason for Visit * Reason Comments Conversion Reason For Visit LOOP RECORDE R IMPLANT-ST DAMIEN Encounter Details Date Type Department Care Team (Latest Contact Info) Description 04/14/2024 6:21 AM CDT - 04/14/2024 8:10 AM CDT Hospital Encounter [facility] (Cath/Interventiona l Radiology) [address] [place] [address] Jeferson Davies MD [address] [facility] [address] [place] [address] Bradycardia, unspecified; Repeated falls; Dizziness and giddiness; Syncope and collapse; Other fatigue; Benign prostatic hyperplasia with lower urinary tract symptoms; Hesitancy of micturition; Essential (primary) hypertension; Pure hyperglyceridemia; Allergy status to other antibiotic agents; Allergy status to analgesic agent; Other mcfp (current) drug therapy Discharge Disposition: Home Social History Tobacco Use Types Packs/Day Years Used Date Smoking Tobacco: Never Tobacco Cessation:Counseling Given: No Humiliation, Afraid, Rape, and Kick questionnair e [...] CDT Travel History Travel Start Travel End [place] 07/17/2024 07/24/2024 documented as of this encounter Last Filed Vital Signs Vital Sign Reading Time Taken Comments Blood Pressure 144/64 04/14/2024 8:55 AM CDT Pulse 55 04/14/2024 8:55 AM CDT Temperature 36.1 ??C (97 ??F) 04/14/2024 7:32 AM CDT Respiratory Rate 15 04/14/2024 8:55 AM CDT Oxygen Saturation 98% 04/14/2024 8:55 AM CDT Inhaled Oxygen Concentration - - Weight 84.1 kg (185 lb 6.2 oz) 04/13/2024 11:05 AM CDT Height 177.8 cm (5' 10 ) 04/13/2024 11:05 AM CDT Body Mass Index 26.6 04/13/2024 11:05 AM CDT documented in this encounter Functional Status [...] partner or ex-partner? No 05/05/2024 1:17 AM NICOLET Malathi Leroy RN * Calculated C-SSRS Risk Score (Lifetime/Recent) Answer Date of Assessment Author No Risk Indicated 05/05/2024 1:17 AM Rolanda Kaur RN * [place] Suicide Severity Rating Scale (Screener/Recent Self-Report) Question Answer Date of Assessment Author 1. Wish to be (Past 1 Month) No 024 1:17 AM Rolanda Kaur RN 2. Non-Specific Active Suici nereyda Thoughts (Past 1 Month) No 05/05/2024 1:17 AM Javon Kaur RN 6. Suicidal Behavior (Lifetime) No 4 1:17 AM Rolanda Kaur RN documented as of this encounter Medications at Time of Discharge alfuzosin ER (Uroxatral) 10 MG 24 hr tablet Take 20 mg by mouth 1 time each day. finasteride (Proscar) 5 MG tablet Take 5 mg by mouth 1 time each day. documented as of this encounter Procedure Notes * Jeferson Umana MD - 04/14/2024 7:58 AM CDT Implantable Loop Recorder Implantation Procedure Note Or Scrub Tech: Jeferson Roy MD Date of Procedure: 04/14/2024 Indication: Bradycardia and frequent falls Medications: Local Lidocaine Procedure: 65251 Insertion of ILR Procedure: Risks and benefits were discussed with the patient and consent was obtained. The patients Left Pectoral region was draped and prepped in usual sterile fashion. Lidocaine was used locally for anesthetic purposes. Scalpel blade was used to make a small incision along the 3rd/4th intercostal space along the left sternal border. Device was deployed in typical fashion successfully. Incision was closed with 4-0 Monocryl as well as local dermabond. The incision site was bandaged. The device was programmed bedside. Complications: None Estimated Blood Loss:<1 mL Device: [employer] [id number] Findings: 1. Successful implantation of a new loop recorder. 2. Patient to follow up in clinic within 1-2 weeks. Plan: 1. Discharge home today 2. Keep wound completely dry for at least 1 week. 3. Remove dressings the day after procedure. Can re-apply fresh dressing as needed. 4. Do not remove Steri-strips or glue. They will come off by itself. Jeferson Roy MD Cardiac Pulp [facility] [phone] documented in this encounter Plan of Treatment Upcoming Encounters Date Type Department Care Team (Late st Contact Info) Description 08/01/2024 3:30 PM NUT GRINDER Office Visit [facility] [address] [facility] [address] [place] [phone] Kevin John MD [address] [facility] [address] [place] [address] Scheduled Orders Name Type Priority Associated Diagnoses Orde r Schedule OUTSIDE PROCEDURE SCAN Procedures Once for 1 Occur rences starting 05/01/2024 until 05/01/2024 documented as of this encounter Visit Diagnoses Diagnosis Bradycardia, unspecified Repeated falls Dizziness and giddiness Syncope and collapse Other fatigue Benign prostatic hyperplasia with lower urinary tract symptoms Hesitancy of micturition Urinary hesitancy Essential (primary) hypertension Unspecified essential hypertension Pure hyperglyceridemia Allergy status to other antibiotic agents Allergy status to analgesic agent Other mcfp (current) drug therapy documented in this encounter Care Teams Manager Terminal Relationship Specialty Start Date End Date Keivn John MD [address] [facility] [address] [place] [address] PCP - General 10/16/20 documented as of this encounter
--- OUTSIDE RECORDS SUMMARY | 2024-07-29 18:36 | XMS_ITS | Encounter Summary ---
Author Organization [facility] Address [address] [place] [address] Care Team Providers Care Canal Boat Captain Name Role Phone Kevin John MD Primary Care Provider [phone]- [phone] Encounter Details Date Type Department Care Team (Late st Contact Info) Description 10/28/2023 Legacy Scanned Document Encounter [facility] Darshan - Conversion [address] [place] [phone] Social History Tobacco Use Types Packs/Day Years Used Date Smoking Tobacco: Never Sex and Gender Information Value Date Recorded Sex Assigned at Male 02/08/2024 1:37 PM CDT Legal Sex Male 6:20 AM CDT Gender Identity Male 10/17/2023 6:20 AM CDT Sexual Orientation Straight 02/08/2024 1: 37 PM CDT Travel History Travel Start Travel End [place] 07/17/2024 07/24/2024 documented as of this encounter Plan of Treatment Upcoming Encounters Date Type Department Care Team (Late st Contact Info) Description 08/01/2024 3:30 PM PRINTED CIRCUIT PHOTOGRAPHER Office Visit [facility] [address] [facility] [address] [place] [phone] Kevin John MD [address] [place] [address] documented as of this encounter Visit Diagnoses Not on filedocumented in this encounter Care Teams Canal Boat Captain Relationship Specialty Start Date End Date Kevin John MD [address] [place] [address] PCP - General 10/16/20 documented as of this encounter
--- OUTSIDE RECORDS SUMMARY | 2024-07-29 18:36 | XMS_ITS | Encounter Summary ---
Author Organization [facility] Address [address] [place] [address] Care Team Providers Care Emergency Medicine Medical Director Name Role Phone Kevin John MD Primary Care Provider [phone]- [phone] Encounter Details Date Type Department Care Team (Late st Contact Info) Description 10/28/2023 Legacy Scanned Document Encounter [facility] Darshan - Conversion [address] [place] [phone] Social History Tobacco Use Types Packs/Day Years Used Date Smoking Tobacco: Never Sex and Gender Information Value Date Recorded Sex Assigned at Male 02/08/2024 1:37 PM CDT Legal Sex Male 6:20 AM CDT Gender Identity Male 10/17/2023 6:20 AM CDT Sexual Orientation Straight 02/08/2024 1: 37 PM CDT Travel History Travel Start Travel End [place] 07/17/2024 07/24/2024 documented as of this encounter Plan of Treatment Upcoming Encounters Date Type Department Care Team (Late st Contact Info) Description 08/01/2024 3:30 PM ACCREDITATION MANAGER Office Visit [facility] [address] [facility] [address] [place] [phone] Kevin John MD [address] [place] [address] documented as of this encounter Visit Diagnoses Not on filedocumented in this encounter Care Teams Emergency Medicine Medical Director Relationship Specialty Start Date End Date Kevin John MD [address] [place] [address] PCP - General 10/16/20 documented as of this encounter
--- OUTSIDE RECORDS SUMMARY | 2024-07-29 18:36 | XMS_ITS | Encounter Summary ---
Author Organization [facility] Address [address] [place] [address] [place] [address] Care Team Providers Care Splunk Dashboard Developer Name Role Phone Kevin John MD Primary Care Provider [phone] Reason for Visit * Reason Comments Conversion Reason For Visit R42 Encounter Details Date Type Department Care Team (Latest Contact Info) Description 11/29/2023 6:00 AM CDT - 12/28/2023 11:59 PM T Hospital Encounter [facility] - Conversion [address] [place] [address] Omaira Bailey MD [address] [facility] [address] [place] [address] Encounter for other administrative examinations Discharge Disposition: Home Social History Tobacco Use [...] CDT Travel History Travel Start Travel End [place] 07/17/2024 07/24/2024 documented as of this encounter [...] or ex-partner? No 05/05/2024 1:17 AM NICOLET Rolanda Leroy RN Within the last year, have y ou been raped or forced to have any kind of sexual activity by your partner or ex-partner? No 05/05/2024 1:17 AM NICOLET Malathi Lreoy RN Within the last year, have y ou been kicked, hit, slapped, or otherwise physically hurt by your partner or ex-partner? No 05/05/2024 1:17 AM CDT Malathi Leroy RN * Calculated C-SSRS Risk Score (Lifetime/Recent) Answer Date of Assessment Author No Risk Indicated 05/05/2024 1:17 AM NICOLET Rolanda Leroy RN * [place] Suicide Severity Rating Scale (Screener/Recent Self-Report) Question Answer Date of Assessment Author 1. Wish to be (Past 1 Month) No 024 1:17 AM Rolanda Kaur RN 2. Non-Specific Active Suici nereyda Thoughts (Past 1 Month) No 05/05/2024 1:17 AM NICOLET Javon Leroy RN 6. Suicidal Behavior (Lifetime) No 1:17 AM NICOLET Rolanda Leroy RN documented as of this encounter Progress Notes * Mir Deshpande, PT - 11/29/2023 4:23 PM CDT PT Outpatient Evaluation Entered On: 11/29/2023 16:41 CDT Performed On: 11/29/2023 16:23 CDT by Mir Deshpande PT Signature and Services PT Time In/Time Out PT Time In : 11/29/2023 13:00 CDT PT Time Out : 11/29/2023 14:00 CDT [facility] PT - 11/29/2023 16:23 CDT Performed On Date/Time : Performed on date/time has been reviewed/validated Supervising Therapist Co Signing Needed : No PT OP Charge Services : Yes Jeramy PT - 11/29/2023 16:23 CDT Medical History PT, OT or SIDE GUIDER? : PT PT Actual Evaluation Date : 11/29/2023 CDT Information Given By : Patient Referring Physician : Omaira Bailey MD Primary Therapy Diagnosis : L PSCC BPPV Reason for Referral : Evaluation/Treatment Primary Medical Diagnosis : R42 Dizziness and Giddiness Chief Complaint : Falls Current Medical Condition : 83yo male presents c dx of dizziness and giddiness. Patient states thathe has fallen 3x in the past year with the last one being approximately 3 months ago when attempting to get into bed. Patient unable to explain the cause of falling and unable to describe how he was feeling. Patient has hx of vertigo, however, only when he has been laying on his back for an extended period of time. He states that he would not be here unless referred by physician. Surgical/Other Medical History : enlarged prostate, expan eustachian tube Medical History Reviewed with Patient and/or Caregiver : Yes Deshpande PT - 11/29/2023 16:23 CDT Abuse and Neglect Screen Objective Signs of Abuse Present : No Patient Health Questionnaire (PHQ 2/PHQ 9) : Yes Are you interested in information on Mental Health resources? : No Jeramy PT - 11/29/2023 16:23 CDT Depression Screening Little interest or pleasure in doing things in last 2 weeks (ref) : Not at all Feeling down, depressed, or hopeless in last 2 weeks : Not at all Patient Health Questionnaire 2 item total score : 0 Deshpande PT - 11/29/2023 16:23 CDT General Information Program Name : Outpatient Rehabilitation Precautions : Falls Affect/Behavior : Appropriate, Calm, Cooperative Occupational Therapy Evaluation. : Yes Pain Symptoms : No [facility] pain [facility] 11/29/[facility]23 16:23 CDT Pain Assessment DVPRS Pain Scale : Yes [facility] PT - 11/29/2023 16:23 CDT DVPRS Pain Scale Pre-Therapy Pain Rating : 0 Post-Therapy Pain Rating : 0 [facility] PT - 11/29/2023 16:23 CDT Level of Functioning Current Functional Status Bed Mobility : Independent Transfers : Independent Ambulation at Home : Independent Community Ambulation : Independent Stairs : Independent Car Transfers : Independent Shower/Tub Transfer : Independent Feeding : Independent Grooming/Hygiene : Independent Toileting : Independent Dressing: Upper Extremity : Independent Dressing: Lower Extremity : Independent Sports/Exercise : Independent Driving : Independent Work/Household Tasks : Independent [facility] PT - 11/29/2023 16:23 CDT Patient/Caregiver Goals : Improve LE strength and balance Current Devices/Equipment : None Deshpande PT - 11/29/2023 16:23 CDT Learning Needs Patient : None Learning Recipients : Patient Barriers to Learning : None evident [facility] PT - 11/29/2023 16:23 CDT Communication Information Communication Limitation : No Preferred Language for Communication : Liberian Preferred Language for Healthcare Information : Liberian Preferred Communication Mode : Verbal Deshpande PT - 11/29/2023 16:23 CDT Home Environment Lives With : Adult Child(don), Spouse Lives In : Single level home Patient's Responsibilities : Retired Jeramy PT - 11/29/2023 16:23 CDT Medication Documentation Medications Reviewed with Patient and/or Caregiver : Yes Jeramy PT - 11/29/2023 16:23 CDT Medication Freetext Grid Medication Name : Alfuzosin Finasteride [facility] PT - 11/29/2023 16:23 CDT [facility] - 11/29/2023 16:23 CDT Allergies Allergies Reviewed with Patient and/or Caregiver : Yes Jeramy PT - 11/29/2023 16:23 CDT (As Of: 11/29/2023 16:41) Allergies (Active) ciprofloxacin Estimated Onset Date: Unspecified ; Created By: Mir Deshpande PT; Reaction Status: Active; Category: Drug ; Substance: ciprofloxacin ; Type: Allergy ; Updated By: Mir Deshpande PT; Reviewed Date: 11/29/2023 16:32 CDT indomethacin Estimated Onset Date: Unspecified ; Reactions: Ciprofloxacin ; Created By: Mir Deshpande PT; Reaction Status: Active ; Category: Drug ; Substance: indomethacin ; Type: Allergy ; Updated By: Mir Deshpande PT; Reviewed Date: 11/29/2023 16:31 CDT Vestibular Special Tests/Interventions Results of Vertebral Artery Insufficiency : Negative Mir Deshpande PT - 11/29/2023 16:23 CDT Peripheral Vestibular Assessment Ehrenberg Hallpike Left Assessment Ehrenberg Hallpike Right Assessment Direction of Nystagmus : Upward beating, Torsional left No signs or symptoms Onset of Nystagmus : Immediate Duration of Nystagmus : <10sec Repetitions : 1 Mir Deshpande PT - 11/29/2023 16:23 CDT Jeramy PT - 11/29/2023 16:23 CDT Peripheral/Vestibular Interventions Canalith Repositioning Maneuver Direction of Nystagmus : Upward beating, Torsional left Onset of Nystagmus : Immediate Duration of Nystagmus : <10sec Repetitions : 2 Comment : 1 on L, 1 on R Mir Deshpande PT - 11/29/2023 16:23 CDT Infrared Goggles-Head Shaking Nystagmus Spontaneous Nystagmus : None Gaze Evoked Nystagmus : None Head Shaking Nystagmus : None Mir Deshpande PT - 11/29/2023 16:23 CDT Oculomotor Testing/Vestibular Ocular Reflex Oculomotor Test/VOR-Ocular ROM Vertical Smooth Pursuit Vertical : Intact Smooth Pursuit Horizontal : Intact Smooth Pursuit Diagonal : Intact Saccades Left : Intact Saccades Right : Intact Convergence/Divergence : Intact Head Thrust Left : Impaired Head Thrust Right : Intact VOR x 1 Upward : Intact VOR x 1 Downward : Intact VOR x 1 Left : Intact VOR x 1 Right : Intact Mir Deshpande PT - 11/29/2023 16:23 CDT Dizziness Handicap Inventory Frustrated because of problem : No Looking up Increases problem : Sometimes DHI:Restrict travel because of problem : No Walking aisle in [employer] increases problem : No Problem increases difficulty getting into and out of bed : No Problem significantly restricts participation in social activites : No Difficulty Reading because of problem : No Performing more ambitious activites increases problem : Sometimes Because of your problem, are yor afraid to leave your home without having someone accompany you? : No Embarrassed in front of others because of problem : No Quick head movements increases problem : No Avoid heights because of problem : No Turning over in bed increases problem : No Difficult to do strenuous house or yard work because of problem : Sometimes Afraid people may think you are intoxicated because of problem : No Difficult for you to walk by yourself because of problem : No Walking down sidewalk increases problem : No Difficult to concentrate because of problem : No Difficult to walk around house in the dark because of problem : No Afraid to say home alone because of problem : No Feel handicapped because of problem : No Problem placed stress on relationships : No Depressed because of problem : No Problem interferes with job and household resp : No Bending over increases problem : Sometimes Total Score : 8 Mir Deshpande PT - 11/29/2023 16:23 CDT Assessment Rehab Potential Toward Stated Goal : Good Impairments/Limitations : Balance deficits, Strength deficits Assessment Comments : 83yo male presents c dx of dizziness and giddiness. Patient's perceived handicap is minimal per DHI. Negative screen findings for central vestibular issues. Positive screen findings indicative of possible peripheral vestibular dysfunction during HTT to the L. Positive L Anam Hallpike indicative of L PSCC BPPV. Patient is at a low risk for falls per TUG, however, at a high risk overall due to hx. Patient advised that he could benefit from therapy in order to address vertigo,however, patient did not feel that therapy was needed as his symptoms were not bad. Stated that he wanted some strengthening exercises and decided not to continue treatment. PT provided HEP, and patient was discharged. Mir Deshpande PT - 11/29/2023 16:23 CDT Plan PT Frequency OP : Does not require skilled PT at this time PT Duration OP : Other: Patient declined treatment PT Requested CPT Code? : Outpatient Rehabilitation Planned Treatments OP : No therapeutic intervention needed at this time Planned Treatment Comments OP : D/C Mir Deshpande PT - 11/29/2023 16:23 CDT PT Outpatient Charges Verify Patient Insurance : Medicare/Worker's Comp insurance Physical Therapy Credentials : Physical Therapist KX Modifier Evaluated : Yes PT Evaluation Low Complex OP TR : 1 Encounter Review : Yes Mir Deshpande PT - 11/29/2023 16:23 CDT Image 1 - Images currently included in the form version of this document have not been included in the text rendition version of the form. Image 2 - Images currently included in the form version of this document have not been included in the text rendition version of the form. PT Reauthorization Codes PT Reauthorization Code Validated? : Yes Mir Deshpande PT - 11/29/2023 16:23 CDT KX Modifier Assessment KX Modifier Assessment : It is my professional judgment that at this time, the patient meets the criteria of therapy services being medically necessary and qualifies for an automatic exception from the therapy cap as defined by CMS. Please utilize the KX modifer. Mir Deshpande PT - 11/29/2023 16:23 CDT documented in this encounter Plan of Treatment Upcoming Encounters Date Type Department Care Team (Late st Contact Info) Description 08/01/2024 3:30 PM PROSTHETIC AIDE Office Visit [facility] [address] [facility] [address] [place] [phone] Kevin John MD [address] [facility] [address] [place] [address] Scheduled Orders Name Type Priority Associated Diagnoses Orde r Schedule OUTSIDE PROCEDURE SCAN Procedures Once for 1 Occur rences starting 06/01/2024 until 06/01/2024 documented as of this encounter Visit Diagnoses Diagnosis Encounter for other administrative examinations documented in this encounter Care Teams Splunk Dashboard Developer Relationship Specialty Start Date End Date Kevin John MD [address] [facility] [address] [place] [address] PCP - General 10/16/20 documented as of this encounter
--- OUTSIDE RECORDS SUMMARY | 2024-07-29 18:38 | XMS_ITS | Clinical Summary ---
Author Organization [facility] Address [address] [place] [address] Care Team Providers Care Boxing Promoter Name Role Phone Omaira Bailey MD Primary Care Provider [phone] Allergies Active Allergy Reactions Criticality Noted Date Comments Ciprofloxacin 09/17/2023 Pain in calves Indomethacin 09/17/2023 Pain in calves Medications alfuzosin (Uroxatral) 10 MG 24 hr tablet Take 10 mg by mouth 1 (one) time each day. Active finasteride (Proscar) 5 MG tablet Take 5 mg by mouth 1 (one) time each day. 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 [place] [address] [place] [phone] Matilde Ball MD Hyperparathyroidism, primary (CMS/HCC) (Primary Dx) 06/13/2024 Travel 06/10/2024 Travel 05/31/2024 1:00 PM SEASONER Office Visit [place] [facility] ? [place] [address] [place] [phone] Matilde Ball MD Hyperparathyroidism, primary (CMS/HCC); Hypercalcemia 05/31/2024 Travel 05/26/2024 2:00 PM CDT Office Visit [place] [facility] [place] ? [address] [place] [phone] Omaira Bailey MD Benign prostatic hyperplasia with urinary hesitancy (Primary Dx); Syncope, unspecified syncope type; Hypercalcemia; Kidney stones; Primary hypertension; Mixed hyperlipidemia; Thrombocytopenia (CMS/HCC) 05/26/2024 Travel from Last 3 Months Immunizations Immunization Administration Dates Next Due COVID-19 Pfizer 12 & Over Vaccination (PURPLE-DI LUTE) 10/15/2020 Influenza, injectable, quadrivalent 06/16/2023 Social History Tobacco Use Types Packs/Day Years Used Date Smoking Tobacco: Never Passive Smoke Exposure: Past Smokeless Tobacco: Never Tobacco Cessation:Counseling Given: Not Answered Passive Exposure Comments:Parents smoked Alcohol Use Standard Drinks/Week Comments Yes 1 (1 standard drink = 0.6 oz pur e alcohol) Hunger Vital Sign Answer Date Recorded Within the past 12 months, y ou worried that your food would run out before you got the money to buy more. Never true 03/03/20 24 Within the past 12 months, t he food you bought just didn't last and you didn't have money to get more. Never true 03/03/2024 Depression Answer Date Recorded Patient Health Questionnaire-9 Score 3 03/03/2024 Sex and Gender Information Value Date Recorded Sex Assigned at Male 09/18/2023 1:29 PM SEASONER Legal Sex Male 12:25 PM CDT Gender Identity Male 09/18/2023 1:29 PM SEASONER Sexual Orientation Straight 09/18/2023 1: 29 PM SEASONER Last Filed Vital Signs Vital Sign Reading Time Taken Comments Blood Pressure 149/72 06/13/2024 11:06 AM SEASONER Pulse 54 06/13/2024 11:06 AM SEASONER Temperature 36.5 ??C (97.7 ??F) 05/26/2024 2:15 PM CD T Respiratory Rate - - Oxygen Saturation 100% 05/26/2024 2:15 PM CDT Inhaled Oxygen Concentration - - Weight 84.8 kg (187 lb) 06/13/2024 11:06 AM SEASONER Height 177.8 cm (5' 10 ) 06/13/2024 11:06 AM SEASONER Body Mass Index 26.83 06/13/2024 11:06 AM SEASONER Plan of Treatment Upcoming Encounters Date Type Department Care Team (Late st Contact Info) Description 09/05/2024 11:20 AM SEASONER Office Visit [place] [facility] [place] [address] [phone] Macario Benjamin MD [address] [place], [place] [phone] 09/08/2024 2:00 PM SEASONER [facility] [place] [facility] ? [place] [address] [phone] Omaira Bailey MD [address] [place], [place] [address] 09/13/2024 1:20 PM SEASONER Office Visit [place] [facility] ? [place] [address] [address] [address] [place] [address] [place] [address] Health Maintenance Due Date Last Done Comments Medicare Annual Wellness (AWV) 1941 DTaP,Tdap,and Td Vaccines (1 - Tdap) 1960 Zoster Vaccines (1 of 2) 1991 Pneumococcal Vaccine: 65+ Years (1 of 1 - PCV) 2006 RSV for and 60+ Years (1 - 1-dose 75+ series) 2016 Influenza Vaccine (#1) 2024 06/16/2023 COVID-19 Vaccine ( season) 2024 04/14/2022, 04/24/2021, 10/15/2020, Additional history exists HIB Vaccines Aged Out No longer eligi [...] Procedure Name Priority Date/Time Associated Diagnosis Comments REMOTE MONITORING - LOOP 07/17/2024 3:15 PM SEASONER Presence of other cardiac implants and grafts Bradycardia, unspecified REMOTE MONITORING - LOOP 06/15/2024 2:15 PM SEASONER Presence of other cardiac implants and grafts Bradycardia, unspecified CALCIUM, 24 HOUR URINE (W/CREATININE) Routine 06/03/2024 Hyperparathyroidism, primary (CMS/HCC) Hypercalcemia MAGNESIUM Routine 05/31/2024 1:48 PM SEASONER Hyperparathyroidism, primary (CMS/HCC) Hypercalcemia PHOSPHORUS Routine 05/31/2024 1:48 PM SEASONER Hyperparathyroidism, primary (CMS/HCC) Hypercalcemia PTH, INTACT (ICMA) AND IONIZED CALCIUM Routine 05/31/2024 1:48 PM SEASONER Hyperparathyroidism, primary (CMS/HCC) Hypercalcemia REMOTE MONITORING - LOOP 05/16/2024 9:16 AM CDT Presence of other cardiac implants and grafts Bradycardia, unspecified CTA CHEST ABDOMEN PELVIS STAT 05/05/2024 3:00 AM CDT from Last 3 Months Results * Remote Monitoring - Loop (07/17/2024 3:15 PM SEASONER) Only the most recent of3 resultswithin the time period is included. us Jeferson Umana MD CV IMPLANTABLE CARDI AC DEVICE PROCEDURES Final Result RHYTHM MANAGEMENT * CALCIUM, 24 HOUR URINE (W/CREATININE) (06/03/2024) CALCIUM/CREATIN INE RATIO 172 30 - 210 mg/g creat [facility] CALCIUM, 24 HOUR URINE 218 mg/24 h [facility] Comment: ?Reference Range ??55-300 ?Low calcium diet 55-200 CREATININE, 24 HOUR URINE 1.26 0.50 - 2.15 g/24 h [facility] Comment: REPORT COMMENT: SPLIT 05/31/2024 FROM [id number] 06/03/2024 06/03/2024 10: 51 AM SEASONER Narrative Resulting Agency Comment Performing Organization Information: ?Site ID: [id number] ?Name: [employer] [place] ?Address: [address] [place] [phone] ?Director: CELSO MITTAL M.D. us Matilde Ball MD LAB URINE ORDERABLES Final Resu lt Performing Organization Address City/[facility]/ZIP Co de Phone Number [facility] * (ABNORMAL) PTH, INTACT (ICMA) AND IONIZED CALCIUM (05/31/2024 1:48 PM SEASONER) PARATHYROID HORMONE, INTACT 147(H) 16 - 77 pg/mL [facility] Comment: Interpretive Guide ?Intact PTH ? Calcium ? ------- Normal Parathyroid ?Normal ? Normal Hypoparathyroidism ?Low or Low Normal ?Low Hyperparathyroidism ?? Primary ?Normal or High ? High ?? Secondary ?High ? Normal or Low ?? Tertiary ? High ? High Non-Parathyroid ?? Hypercalcemia ?Low or Low Normal ?High CALCIUM 11.0(H) 8.6 - 10.3 mg/dL [facility] CALCIUM, IONIZED 5.8(H) 4.7 - 5.5 mg/dL [facility] Comment: REPORT COMMENT: COLLECTION KIT GIVEN TO PATIENT. PATIENT ADVISED TO RETURN. 05/31/2024 1:48 PM SEASONER 05/31/2024 1:49 PM SEASONER Narrative Resulting Agency Comment Performing Organization Information: ?Site ID: [id number] ?Name: [employer] [place] ?Address: [address] [place] [phone] ?Director: CELSO MITTAL M.D. us Matilde Ball MD LAB BLOOD ORDERABLES Final Resu lt [facility] * Phosphorus (05/31/2024 1:48 PM SEASONER) PHOSPHATE ( PHOSPHORUS) 2.8 2.1 - 4.3 mg/dL [facility] Comment: REPORT COMMENT: COLLECTION KIT GIVEN TO PATIENT. PATIENT ADVISED TO RETURN. Blood (Blood) 05/31/2024 1:4 8 PM SEASONER 05/31/2024 1:49 PM SEASONER Narrative Resulting Agency Comment Performing Organization Information: ?Site ID: [id number] ?Name: [employer] [place] ?Address: [address] [place] [phone] ?Director: CELSO MITTAL M.D. Matilde Ball MD LAB BLOOD ORDERABLES Final Resu lt Performing Organization Address [facility]/ZIP Co de Phone Number [facility] * Magnesium (05/31/2024 1:48 PM SEASONER) MAGNESIUM 2.4 1.5 - 2.5 mg/dL [facility] Blood (Blood) 05/31/2024 1:4 8 PM SEASONER 05/31/2024 1:49 PM SEASONER Narrative Resulting Agency Comment Performing Organization Information: ?Site ID: [id number] ?Name: [employer] [place] ?Address: [address] [place] [phone] ?Director: CELSO MITTAL M.D. Matilde Ball MD LAB BLOOD ORDERABLES Final Resu lt Performing Organization Address [facility]/ZIP Co de Phone Number [facility] * CTA abdomen pelvis (05/05/2024 3:00 AM CDT) Anatomical Region Laterality Modality Body, Pelvis, Abdomen Computed T omography Impressions 05/05/2024 5:22 AM CDT 1. ?? [...] follow up imaging. COMMENTS: Consistent with the [employer]'s Incidental Findings Committee white paper (J Am Dennis Radiol 2018): Any incidental renal lesion less than 1 cm or classified as too small to characterize, or any incidental cystic renal lesion characterized as simple-appearing, is likely benign. No follow-up imaging is recommended for these lesions per consensus recommendations based on imaging criteria. REFERENCES: Quynh Melendez et al. Guidelines for Management of Incidental [...] follow up imaging. COMMENTS: Consistent with the [employer]'s Incidental Findings Committee white [...] MD IMG CT PROCEDURES Fi nal Result from Last 3 Months Insurance MEDICARE AETNA MEDICARE SUPPLEMENT MEDICARE AETNA MEDICARE SUPPLEMENT Advance Directives Documents on File Type Date Recorded Patient Buttonholer Expl anation Advance Directives and Living Will 09/17/2023 MEDICARE Care Teams Boxing Promoter Relationship Specialty [place] [address] [place] [address] [address] [place], [place] [address] PCP - General Geriatric Medicine 06/28/23
--- OUTSIDE RECORDS SUMMARY | 2024-07-29 18:38 | XMS_ITS | Encounter Summary ---
Author Organization [facility] Address [address] [place] [address] Care Team Providers Care It Systems Analyst Consultant Name Role Phone Omaira Bailey MD Primary Care Provider [phone] Encounter Details Date Type Department Care Team (Latest Contact Info) Description 06/13/2024 Travel Social History Tobacco Use Types Packs/Day Years Used Date Smoking Tobacco: Never Passive Smoke Exposure: Past Smokeless Tobacco: Never Passive Exposure Comments:Pa rents smoked Alcohol Use Standard Drinks/Week Comments Yes [...] Sex Assigned at Male 09/18/2023 1:29 PM DINING CAR HOP Legal Sex Male 12:25 PM CDT Gender Identity Male 09/18/2023 1:29 PM DINING CAR HOP Sexual Orientation Straight 09/18/2023 1: 29 PM DINING CAR HOP documented as of this encounter Plan of Treatment Upcoming Encounters Date Type Department Care Team (Late st Contact Info) Description 09/05/2024 11:20 AM DINING CAR HOP Office Visit [place] [facility] ? [place] [address] [facility] [address] [place] [phone] Macario Benjamin MD [address] [address] 09/08/2024 2:00 PM DINING CAR HOP Office Visit [place] [facility] ? [place] [address] [phone] Omaira Bailey MD [address] [address] 09/13/2024 1:20 PM DINING CAR HOP Office Visit [place] [facility] ? [place] [address] [place] [address] [place] [address] [place] [address] documented as of this encounter Visit Diagnoses Not on filedocumented in this encounter Additional Health Concerns Assessment Noted Time PHQ-9 Depression Total Score: 3 03/03/20 24 1:26 PM CDT documented as of this encounter Care Teams It Systems Analyst Consultant Relationship Specialty Start Date End Date Omaira Bailey MD [address] [facility] [address] [place], [place] [address] PCP - General Geriatric Medicine 06/28/23 documented as of this encounter
--- OUTSIDE RECORDS SUMMARY | 2024-07-29 18:38 | XMS_ITS | Referral Summary ---
Author Organization [facility] Address [address] [place] [address] Care Team Providers Care Slackline Operator Name Role Phone Omaira Bailey MD Primary Care Provider [phone] Encounters Date Type Department Care Team Description 06/13/2024 Travel 06/13/2024 11:20 AM HADOOP CONSULTANT Office Visit [place] [facility] ? [place] [address] [place] [phone] Matilde Ball MD Hyperparathyroidism, primary (CMS/HCC) (Primary Dx) 06/10/2024 Travel 05/31/2024 Travel 05/31/2024 1:00 PM HADOOP CONSULTANT Office Visit [place] [facility] ? [place] [address] [place] [phone] Matilde Ball MD Hyperparathyroidism, primary (CMS/HCC); Hypercalcemia 05/26/2024 Travel 05/26/2024 2:00 PM CDT Office Visit [place] [facility] ? [address] [phone] Omaira Bailey MD Benign prostatic hyperplasia with urinary hesitancy (Primary Dx); Syncope, unspecified syncope type; Hypercalcemia; Kidney stones; Primary hypertension; Mixed hyperlipidemia; Thrombocytopenia (CMS/HCC) from Last 3 Months Allergies Active Allergy Reactions Criticality Noted Date [...] Perforation of both tympanic membranes Syncope 09/21/2023 Immunizations Immunization Administration Dates Next Due COVID-19 [...] Sex Assigned at Male 09/18/2023 1:29 PM HADOOP CONSULTANT Legal Sex Male 12:25 PM CDT Gender Identity Male 09/18/2023 1:29 PM HADOOP CONSULTANT Sexual Orientation Straight 09/18/2023 1: 29 PM HADOOP CONSULTANT Last Filed Vital Signs Vital Sign Reading Time Taken Comments Blood Pressure 149/72 06/13/2024 11:06 AM HADOOP CONSULTANT Pulse 54 06/13/2024 11:06 AM HADOOP CONSULTANT Temperature 36.5 ??C (97.7 ??F) 05/26/2024 2:15 PM CD T Respiratory Rate - - Oxygen Saturation 100% 05/26/2024 2:15 PM CDT Inhaled Oxygen Concentration - - Weight 84.8 kg (187 lb) 06/13/2024 11:06 AM HADOOP CONSULTANT Height 177.8 cm (5' 10 ) 06/13/2024 11:06 AM HADOOP CONSULTANT Body Mass Index 26.83 06/13/2024 11:06 AM HADOOP CONSULTANT Plan of Treatment Upcoming Encounters Date Type Department Care Team (Late st Contact Info) Description 09/05/2024 11:20 AM HADOOP CONSULTANT Office Visit [place] [facility] ? [place] [address] [facility] [address] [phone] Macario Benjamin MD [address] [facility] [address] [address] 09/08/2024 2:00 PM HADOOP CONSULTANT Office Visit [place] [facility] ? [place] [address] [facility] [address] [phone] Omaira Bailey MD [address] [facility] [address] [place], [place] [address] 09/13/2024 1:20 PM HADOOP CONSULTANT Office Visit [place] [facility] ? [place] [address] [place] [phone] [place] [address] [place] [address] [place] [address] Procedures Procedure Name Priority Date/Time Associated Diagnosis Comments REMOTE MONITORING - LOOP 07/17/2024 3:15 PM HADOOP CONSULTANT Presence of other cardiac implants and grafts Bradycardia, unspecified REMOTE MONITORING - LOOP 06/15/2024 2:15 PM HADOOP CONSULTANT Presence of other cardiac implants and grafts Bradycardia, unspecified CALCIUM, 24 HOUR URINE (W/CREATININE) Routine 06/03/2024 Hyperparathyroidism, primary (CMS/HCC) Hypercalcemia MAGNESIUM Routine 05/31/2024 1:48 PM HADOOP CONSULTANT Hyperparathyroidism, primary (CMS/HCC) Hypercalcemia PHOSPHORUS Routine 05/31/2024 1:48 PM HADOOP CONSULTANT Hyperparathyroidism, primary (CMS/HCC) Hypercalcemia PTH, INTACT (ICMA) AND IONIZED CALCIUM Routine 05/31/2024 1:48 PM HADOOP CONSULTANT Hyperparathyroidism, primary (CMS/HCC) Hypercalcemia REMOTE MONITORING - LOOP 05/16/2024 9:16 AM CDT Presence of other cardiac implants and grafts Bradycardia, unspecified CTA CHEST ABDOMEN PELVIS STAT 05/05/2024 3:00 AM CDT from Last 3 Months Results * Remote Monitoring - Loop (07/17/2024 3:15 PM HADOOP CONSULTANT) Only the most recent of3 resultswithin the [...] [facility] Comment: REPORT COMMENT: SPLIT 05/31/2024 FROM [id number] 06/03/2024 06/03/2024 10: 51 AM HADOOP CONSULTANT Narrative Resulting Agency Comment Performing Organization Information: ?Site ID: RGA ?Name: [employer] [place] ?Address: [address] [place] [phone] ?Director: CELSO MITTAL M.D. us Matilde Ball MD LAB URINE ORDERABLES Final Resu lt [facility] * (ABNORMAL) PTH, INTACT (ICMA) AND IONIZED CALCIUM (05/31/2024 1:48 PM HADOOP CONSULTANT) PARATHYROID HORMONE, INTACT 147(H) 16 - 77 [...] PATIENT ADVISED TO RETURN. 05/31/2024 1:48 PM HADOOP CONSULTANT 05/31/2024 1:49 PM HADOOP CONSULTANT Narrative Resulting Agency Comment Performing Organization Information: ?Site ID: RGA ?Name: [employer] [place] ?Address: [address] [place] [address] ?Director: CELSO MITTAL M.D. Result [facility] Matilde Ball MD LAB BLOOD ORDERABLES Final Resu lt Performing Organization Address [facility] Phone Number [facility] * Phosphorus (05/31/2024 1:48 PM HADOOP CONSULTANT) PHOSPHATE ( PHOSPHORUS) 2.8 2.1 - 4.3 mg/dL [facility] Comment: REPORT COMMENT: COLLECTION KIT GIVEN TO PATIENT. PATIENT ADVISED TO RETURN. Blood (Blood) 05/31/2024 1:4 8 PM HADOOP CONSULTANT 05/31/2024 1:49 PM HADOOP CONSULTANT Narrative Resulting Agency Comment Performing Organization Information: ?Site ID: A ?Name: [employer] [place] ?Address: [address] [place] [address] ?Director: CELSO MITTAL M.D. Result [facility] Matilde Ball MD LAB BLOOD ORDERABLES Final Resu lt Performing Organization Address [facility] Phone Number [facility] * Magnesium (05/31/2024 1:48 PM HADOOP CONSULTANT) MAGNESIUM 2.4 1.5 - 2.5 mg/dL [facility] Blood (Blood) 05/31/2024 1:4 8 PM HADOOP CONSULTANT 05/31/2024 1:49 PM HADOOP CONSULTANT Narrative Resulting Agency Comment Performing Organization Information: ?Site ID: RGA ?Name: [employer] [place] ?Address: [address] [place] [address] ?Director: CELSO MITTAL M.D. Result [facility] Matilde Ball MD LAB BLOOD ORDERABLES Final Resu lt Performing Organization Address [facility] de Phone Number [facility] * CTA abdomen [...] follow up imaging. COMMENTS: Consistent with the [place] [employer]'s Incidental Findings Committee white [...] follow up imaging. COMMENTS: Consistent with the [place]'s Incidental Findings Committee white [...] KACIE YOUNG MD ON 05/05/2024 AT 05:22. iMhir Daley MD IMG CT PROCEDURES Fi nal Result from Last 3 Months Insurance MEDICARE AETNA MEDICARE SUPPLEMENT MEDICARE AETNA MEDICARE SUPPLEMENT Advance Directives Documents on File Type Date Recorded Patient Bullet Swaging Machine Operator Expl anation Advance Directives and Living Will 09/17/2023 MEDICARE Care Teams Slackline Operator Relationship Specialty Start Date End Date Omaira Bailey MD [address] [place] [address] [address] [place], [place] [address] PCP - General Geriatric Medicine 06/28/23
--- OUTSIDE RECORDS SUMMARY | 2024-07-29 18:38 | XMS_ITS | Encounter Summary ---
Author Organization [facility] Address [address] [place] [address] Care Team Providers Care Car Framer Name Role Phone Omaira Bailey MD Primary Care Provider [phone] Encounter Details Date Type Department Care Team (Latest Contact Info) Description 05/31/2024 Travel Social History Tobacco Use Types Packs/Day [...] Sex Assigned at Male 09/18/2023 1:29 PM PILOT BOAT CAPTAIN Legal Sex Male 12:25 PM CDT Gender Identity Male 09/18/2023 1:29 PM PILOT BOAT CAPTAIN Sexual Orientation Straight 09/18/2023 1: 29 PM PILOT BOAT CAPTAIN documented as of this encounter Plan of Treatment Upcoming Encounters Date Type Department Care Team (Late st Contact Info) Description 09/05/2024 11:20 AM PILOT BOAT CAPTAIN Office Visit [place] [facility] ? [place] [address] [facility] [address] [place] [phone] Macario Benjamin MD [address] [address] 09/08/2024 2:00 PM PILOT BOAT CAPTAIN Office Visit [place] [facility] ? [place] [address] [phone] Omaira Bailey MD [address] [place] [address] 09/13/2024 1:20 PM PILOT BOAT CAPTAIN Office Visit [place] [facility] ? [place] [address] [place] [address] [place] [address] [place] [address] documented as of this encounter Visit Diagnoses Not on filedocumented in this encounter Additional Health Concerns Assessment Noted Time PHQ-9 Depression Total Score: 3 03/03/20 24 1:26 PM CDT documented as of this encounter Care Teams Car Framer Relationship Specialty Start Date End Date Omaira Bailey MD [address] [facility] [address] [place], [place] [address] PCP - General Geriatric Medicine 06/28/23 documented as of this encounter
--- OUTSIDE RECORDS SUMMARY | 2024-07-29 18:38 | XMS_ITS | Encounter Summary ---
Author Organization [facility] Address [address] [place] [address] Care Team Providers Care Fur Sewer Name Role Phone Omaira Bailey MD Primary Care Provider [phone] Reason for Visit * Reason Comments Hypercalcemia Results f/up Encounter Details Date Type Department Care Team (Latest Contact Info) Description 06/13/2024 11:20 AM ADOBE BLOCK MAKER Office Visit [facility] [address] [place] [address] [place] [address] [address] [facility] [place] [address] Hyperparathyroidism, primary (CMS/HCC) (Primary Dx) Social History Tobacco Use Types [...] Sex Assigned at Male 09/18/2023 1:29 PM ADOBE BLOCK MAKER Legal Sex Male 12:25 PM CDT Gender Identity Male 09/18/2023 1:29 PM ADOBE BLOCK MAKER Sexual Orientation Straight 09/18/2023 1: 29 PM ADOBE BLOCK MAKER documented as of this encounter Last Filed Vital Signs Vital Sign Reading Time Taken Comments Blood Pressure 149/72 06/13/2024 11:06 AM ADOBE BLOCK MAKER Pulse 54 06/13/2024 11:06 AM ADOBE BLOCK MAKER Temperature - - Respiratory Rate - - Oxygen Saturation - - Inhaled Oxygen Concentration - - Weight 84.8 kg (187 lb) 06/13/2024 11:06 AM ADOBE BLOCK MAKER Height 177.8 cm (5' 10 ) 06/13/2024 11:06 AM ADOBE BLOCK MAKER Body Mass Index 26.83 06/13/2024 11:06 AM ADOBE BLOCK MAKER documented in this encounter Progress Notes * Matilde Ball MD - 06/13/2024 11:20 AM CST Images from the original note were not included. Jean Dodge 1940 June 13, 2024 Subjective Reason for visit hypercalcemia HPI PCP: Omaira Bailey MD Jean Dodge is a 83 year male with history of kidney stone, elevated PTH, BPH, bradycardia,mild thrombocytopenia, borderline A1c, HTN, follow up for hyperparathyroidism Hypercalcemia: Was discovered through blood tests. 09/17/2023: calcium 10.6, albumin 4.1 02/2024: calcium 11.2, ionized calcium 5.7. PTH 150, Vit D 60 Kidney stone in 04/2024, had ER visit. 06/18: calcium 11, ionized calcium 5.8, phos 2.8, PTH 147, 24hr urine calcium 218 Calcium intake: no calcium supplements, takes Vit D, some diary product, but not much. Denies h/o osteoporosis or fracture +kidney stone Chronic kidney disease stage III, Cr 1.55, eGFR 44 in 05/18 Constipation Denies FH of hyperparathyroidism Denies bone pain. Past Medical History: Diagnosis Date Bradycardia High triglycerides Syncope Vertigo Past Surgical History: Procedure Laterality Date CARDIAC SURGERY states he has a heart monitor not a pacemaker TONSILLECTOMY Social History Tobacco Use Smoking status: Never Passive exposure: Past (Parents smoked) Smokeless tobacco: Never Substance Use Topics Alcohol use: Yes Alcohol/week: 1.0 standard drink of alcohol Types: 1 Glasses of wine per week Drug use: Never Family History Family history unknown: Yes Allergies Allergen Reactions Ciprofloxacin Pain in calves Indomethacin Pain in calves Current Outpatient Medications: alfuzosin (Uroxatral) 10 MG 24 hr tablet, Take 10 mg by mouth 1 (one) time each day., Disp: , Rfl: finasteride (Proscar) 5 MG tablet, Take 5 mg by mouth 1 (one) time each day., Disp: , Rfl: Current Facility-Administered Medications: technetium Tc-99m sestamibi (Cardiolite) radio-isotope injection 18-45 millicurie, 18-45 millicurie, Intravenous, PRN, Jeni Patrick MD, 33 millicurie at 01/12/24 1135 technetium Tc-99m sestamibi (Cardiolite) radio-isotope injection 8-18 millicurie, 8-18 millicurie, Intravenous, PRN, Jeni Patrick MD, 11.3 millicurie at 01/12/24 0855 Objective 03/03/2024 1:20 PM 03/03/2024 1:24 PM 03/30/2024 8:45 AM 05/04/2024 10:57 PM 05/26/2024 2:15 PM 05/31/2024 12:48 PM 06/13/2024 11:06 AM Vitals Systolic 123 128 153 165 143 149 Diastolic 62 71 75 74 67 72 Heart Rate 49 63 45 44 58 54 Temp 36.5 ??C (97.7 ??F) 36.5 ??C (97.7 ??F) Height (in) 1.778 m (5' 10 ) 1.778 m (5' 10 ) 1.778 m (5' 10 ) 1.778 m (5' 10 ) Weight (lb) 190.2 188.2 190.3 188.8 185 187 BMI 27.29 kg/m2 27 kg/m2 27.31 kg/m2 27.09 kg/m2 26.54 kg/m2 26.83 kg/m2 BSA (m2) 2.06 m2 2.05 m2 2.06 m2 2.06 m2 2.04 m2 2.05 m2 Visit Report Report Report Report Report Report Report Physical Exam constitutional: no acute distress, alert, cooperative. Eyes: EOMI Neck: supple, thyroid not grossly enlarged Cardiovascular: normal rate/rhythm, normal S1, S2, no murmurs, no rubs. Pulmonary: no Resp distress, normal breath sounds, normal rhythm and effort Extremities: no pedal edema Skin: normal turgor, warm and dry. Psych: normal affect and normal mood Orders Placed This Encounter DEXA bone density Standing Status: Future Number of Occurrences: 1 Standing Expiration Date: 06/13/2025 Order Specific Question: Where should this procedure be performed? Answer: [facility] Order Specific Question: Which [facility] Diagnostic location should perform this procedure? Answer: [facility] Basic metabolic panel Standing Status: Future Standing Expiration Date: 06/13/2025 PTH, INTACT (ICMA) AND IONIZED CALCIUM Standing Status: Future Standing Expiration Date: 06/13/2025 Assessment Plan Primary hyperparathyroidism -PTH 147-150, calcium 10.6-11.2, normal Vit d, 24 hr urine calcium 218, more consistent with primary hyperparathyroidism -CKD stage 3 (eGFR 44) and h/o kidney stone, discussed parathyroidectomy. He declined surgery -He needs long-term monitoring for worsening hypercalcemia, kidney impairment, and bone loss. He is aware the development of any of these findings indicates disease progression and the need forsurgical intervention. -hydration encouraged. -calcium intake ~1000mg daily -keep Vit D 30-50 -check DEXA -check calcium/PTH and BMP in 3 months RTC in 3 months spent>45 min with the visit, time spent which include pre-charting, actual time with the pt, andtime spent after the visit including putting orders and finishing office visit note. Matilde Ball MD E BLOCK MAKER E BLOCK MAKER documented in this encounter Plan of Treatment Upcoming Encounters Date Type Department Care Team (Late st Contact Info) Description 09/05/2024 11:20 AM ADOBE BLOCK MAKER [facility] [place] [address] [facility] [address] [address] Macario Benjamin MD [address] [facility] [address] [address] 09/08/2024 2:00 PM ADOBE BLOCK MAKER [facility] ? [place] [address] [phone] Omaira Bailey MD [address] [facility] [address] [place] [id number] 09/13/2024 1:20 PM ADOBE BLOCK MAKER Office [facility] ? [place] [address] [place] [address] [place] [address] [place] [address] Scheduled Orders Name Type Priority Associated Diagnoses Orde r Schedule DEXA bone density Imaging Routine Hyperparathyroidism, primary ([facility]/HCC) Expected: 06/13/2024 (Approximate), Expires: 06/13/2025 Basic metabolic panel Lab Routine Hyperparathyroidism, primary (CMS/HCC) Expected: 08/29/2024, Expires: 06/13/2025 PTH, INTACT (ICMA) AND IONIZED CALCIUM Lab Routine Hyperparathyroidism, primary (CMS/HCC) Expected: 08/29/2024, Expires: 06/13/2025 documented as of this encounter Visit Diagnoses Diagnosis Hyperparathyroidism, primary (CMS/HCC)- Primary Primary hyperparathyroidism documented in this encounter Additional Health Concerns Assessment Noted Time PHQ-9 Depression Total Score: 3 03/03/20 24 1:26 PM CDT documented as of this encounter Care Teams Fur Sewer Relationship Specialty Start Date End Date Omaira Bailey MD [address] [facility] [address] [place] [address] PCP - General Geriatric Medicine 06/28/23 documented as of this encounter
--- OUTSIDE RECORDS SUMMARY | 2024-07-29 18:38 | XMS_ITS | Encounter Summary ---
Author Organization [facility] Address [address] [place] [address] Care Team Providers Care Vermin Exterminator Name Role Phone Omaira Bailey MD Primary Care Provider [phone] Reason for Visit * Reason Comments Hypercalcemia New consult for abno rmal lab results,referred by Geriatric,first time seeing endo * Consultation (Routine) - Authorized Specialty Diagnoses / Procedures Referred By Contac t Referred To Contact Endocrinology Diagnoses Hyperparathyroidism, primary (CMS/HCC) Hypercalcemia Omaira Bailey MD [address] [facility] [address] [address] Phone: tel: fax: [facility] ? [place] [address] [place] [address] Phone: tel: fax: Referral ID Status Reason Start Date Expiration Date Visits Requested Visits Authorized [id number] Authorized Evaluate and Treat 03/11/2024 03/11/2025 12 12 Encounter Details Date Type Department Care Team (Latest Contact Info) Description 05/31/2024 1:00 PM HYDRO GENERATION SUPERVISOR Office Visit [facility] ? [place] [address] [place] [address] [place] [address] [place] [address] Hyperparathyroidism, primary (CMS/HCC); Hypercalcemia Social History Tobacco Use Types Packs/Day Years Used Date Smoking Tobacco: Never Passive Smoke Exposure: Past Smokeless Tobacco: Never Passive Exposure Comments:Harshad clinton smoked Alcohol Use Standard Drinks/Week Comments Yes [...] Sex Assigned at Male 09/18/2023 1:29 PM HYDRO GENERATION SUPERVISOR Legal Sex Male 12:25 PM CDT Gender Identity Male 09/18/2023 1:29 PM HYDRO GENERATION SUPERVISOR Sexual Orientation Straight 09/18/2023 1: 29 PM HYDRO GENERATION SUPERVISOR documented as of this encounter Last Filed Vital Signs Vital Sign Reading Time Taken Comments Blood Pressure 143/67 05/31/2024 12:48 PM HYDRO GENERATION SUPERVISOR Pulse 58 05/31/2024 12:48 PM HYDRO GENERATION SUPERVISOR Temperature - - Respiratory Rate - - Oxygen Saturation - - Inhaled Oxygen Concentration - - Weight 83.9 kg (185 lb) 05/31/2024 12:48 PM HYDRO GENERATION SUPERVISOR Height 177.8 cm (5' 10 ) 05/31/2024 12:48 PM HYDRO GENERATION SUPERVISOR Body Mass Index 26.54 05/31/2024 12:48 PM HYDRO GENERATION SUPERVISOR documented in this encounter Progress Notes * Matilde Ball MD - 05/31/2024 1:00 PM CST Images from the original note were not included. Jean Dodge 1940 May 31, 2024 Subjective Reason for visit hypercalcemia HPI PCP: Omaira Bailey MD Jean Dodge is a 83 year male with history of kidney stone, elevated PTH, BPH, bradycardia,mild thrombocytopenia, borderline A1c, HTN, referred for hyperparathyroidism Hypercalcemia: Was discovered through blood tests. 09/17/2023: calcium 10.6, albumin 4.1 02/2024: calcium 11.2, ionized calcium 5.7. PTH 150, Vit D 60 Kidney stone in 04/2024, had ER visit. Calcium intake: no calcium supplements, takes Vit D, some diary product, but not much. Denies h/o osteoporosis or fracture +kidney stone Chronic kidney disease stage III, Cr 1.35, eGFR 52 in 03/18 Constipation Denies FH of hyperparathyroidism Denies bone [...] MD, 11.3 millicurie at 01/12/24 0855 Objective 03/02/2024 10:49 AM 03/03/2024 1:20 PM 03/03/2024 1:24 PM 03/30/2024 8:45 AM 05/04/2024 10:57 PM 05/26/2024 2:15 PM 05/31/2024 12:48 PM Vitals Systolic 117 123 128 153 165 143 Diastolic 63 62 71 75 74 67 Heart Rate 52 49 63 45 44 58 Temp 36.5 ??C (97.7 ??F) 36.5 ??C (97.7 ??F) Height (in) 1.778 m (5' 10 ) 1.778 m (5' 10 ) 1.778 m (5' 10 ) 1.778 m (5' 10 ) Weight (lb) 189.7 190.2 188.2 190.3 188.8 185 BMI 27.22 kg/m2 27.29 kg/m2 27 kg/m2 27.31 kg/m2 27.09 kg/m2 26.54 kg/m2 BSA (m2) 2.06 m2 2.06 m2 2.05 m2 2.06 m2 2.06 m2 2.04 m2 Visit Report Report Report Report Report [...] and normal mood Orders Placed This Encounter PTH, INTACT (ICMA) AND IONIZED CALCIUM Standing Status: Future Number of Occurrences: 1 Standing Expiration Date: 05/31/2025 Phosphorus Standing Status: Future Number of Occurrences: 1 Standing Expiration Date: 05/31/2025 Magnesium Standing Status: Future Number of Occurrences: 1 Standing Expiration Date: 05/31/2025 CALCIUM, 24 HOUR URINE (W/CREATININE) Standing Status: Future Number of Occurrences: 1 Standing Expiration Date: 05/31/2025 Order Specific Question: Release to patient Answer: Immediate [1] Assessment Plan Hypercalcemia Elevated PTH -likely primary hyperparathyroidism. -noted normal Vit D @60 in 02/2024. -recheck PTH/ca, check Phos, and mg. Check 24 hr urine calcium to rule out FHH -CKD stage 3 (eGFR 52) and h/o kidney stone, may need parathyroidectomy if confirmed primary hyperparathyroidism -hydration encouraged. RTC after above labs. spent>45 min with the visit, time spent which include pre-charting, actual time with the pt, andtime spent after the visit including putting orders and finishing office visit note. Matilde Ball MD O GENERATION SUPERVISOR documented in this encounter Plan of Treatment Upcoming Encounters Date Type Department Care Team (Late st Contact Info) Description 09/05/2024 11:20 AM HYDRO GENERATION SUPERVISOR [facility] ? [place] [address] [phone] Macario Benjamin MD [address] [place], [place] [address] 09/08/2024 2:00 PM HYDRO GENERATION SUPERVISOR [facility] ? [place] [address] [phone] Omaira Bailey MD [address] [place], [place] [address] 09/13/2024 1:20 PM HYDRO GENERATION SUPERVISOR Office Visit [facility] ? [place] [address] [place] [address] [place] [address] [place] [address] documented as of this encounter Procedures Procedure Name Priority Date/Time Associated Diagnosis Comments CALCIUM, 24 HOUR URINE (W/CREATININE) Routine 06/03/2024 Hyperparathyroidism , primary (CMS/HCC) Hypercalcemia PTH, INTACT (ICMA) AND IONIZED CALCIUM Routine 05/31/2024 1:48 PM HYDRO GENERATION SUPERVISOR Hyperparathyroidism , primary (CMS/HCC) Hypercalcemia PHOSPHORUS Routine 05/31/2024 1:48 PM HYDRO GENERATION SUPERVISOR Hyperparathyroidism , primary (CMS/HCC) Hypercalcemia MAGNESIUM Routine 05/31/2024 1:48 PM HYDRO GENERATION SUPERVISOR Hyperparathyroidism , primary (CMS/HCC) Hypercalcemia documented in this encounter Results * CALCIUM, 24 HOUR URINE (W/CREATININE) (06/03/2024) CALCIUM/CREATIN INE RATIO 172 30 - 210 mg/g creat [facility] CALCIUM, 24 HOUR URINE 218 mg/24 h [facility] Comment: ?Reference Range ??55-300 ?Low calcium diet 55-200 CREATININE, 24 HOUR URINE 1.26 0.50 - 2.15 g/24 h [facility] Comment: REPORT COMMENT: SPLIT 05/31/2024 FROM [id number] 06/03/2024 06/03/2024 10: 51 AM HYDRO GENERATION SUPERVISOR Narrative Resulting Agency Comment Performing Organization Information: ?Site ID: RGA ?Name: [email or web address] ?Address: [address] [place] [phone] ?Director: CELSO MITTAL M.D. Matilde Ball MD LAB URINE ORDERABLES Final Resu lt Performing Organization Address [facility] Phone Number [facility] * Magnesium (05/31/2024 1:48 PM HYDRO GENERATION SUPERVISOR) [facility] MAGNESIUM 2.4 1.5 - 2.5 mg/dL [facility] Blood (Blood) 05/31/2024 1:4 8 PM HYDRO GENERATION SUPERVISOR 05/31/2024 1:49 PM HYDRO GENERATION SUPERVISOR Narrative Resulting Agency Comment Performing Organization Information: ?Site ID: [facility] ?Name: [facility] ?Address: [address] [place] [phone] ?Director: CELSO MITTAL M.D. Matilde Ball MD LAB BLOOD ORDERABLES Final Resu lt Performing Organization Address [facility] de Phone Number [facility] * Phosphorus (05/31/2024 1:48 PM HYDRO GENERATION SUPERVISOR) Pathologist [facility] PHOSPHATE ( PHOSPHORUS) 2.8 2.1 - 4.3 mg/dL [facility] Comment: REPORT COMMENT: COLLECTION KIT GIVEN TO PATIENT. PATIENT ADVISED TO RETURN. Blood (Blood) 05/31/2024 1:4 8 PM HYDRO GENERATION SUPERVISOR 05/31/2024 1:49 PM HYDRO GENERATION SUPERVISOR Narrative Resulting Agency Comment Performing Organization Information: ?Site ID: [facility] ?Name: [facility] ?Address: [address] [place] [phone] ?Director: CELSO MITTAL M.D. us Matilde Ball MD LAB BLOOD ORDERABLES Final Resu lt [facility] * (ABNORMAL) PTH, INTACT (ICMA) AND IONIZED CALCIUM (05/31/2024 1:48 PM HYDRO GENERATION SUPERVISOR) PARATHYROID HORMONE, INTACT 147(H) 16 - 77 [...] PATIENT ADVISED TO RETURN. 05/31/2024 1:48 PM HYDRO GENERATION SUPERVISOR 05/31/2024 1:49 PM HYDRO GENERATION SUPERVISOR Narrative Resulting Agency Comment Performing Organization Information: ?Site ID: [facility] ?Name: [email or web address] ?Address: [address] [place] [phone] ?Director: CELSO MITTAL M.D. us Matilde Ball MD LAB BLOOD ORDERABLES Final Resu lt [facility] documented in this encounter Visit Diagnoses Diagnosis Hyperparathyroidism, primary (CMS/HCC) Primary hyperparathyroidism Hypercalcemia documented in this encounter Additional Health Concerns Assessment Noted Time PHQ-9 Depression Total Score: 3 03/03/20 24 1:26 PM CDT documented as of this encounter Care Teams Vermin Exterminator Relationship Specialty Start Date End Date Omaira Bailey MD [address] [place] [id number] PCP - General Geriatric Medicine 06/28/23 documented as of this encounter
--- OUTSIDE RECORDS SUMMARY | 2024-07-29 18:38 | XMS_ITS | Encounter Summary ---
Author Organization [facility] Address [address] [place] [address] Care Team Providers Care Microbiology Teacher Name Role Phone Omaira Bailey MD Primary Care Provider [phone] Encounter Details Date Type Department Care Team (Latest Contact Info) Description 06/10/2024 Travel Social History Tobacco Use Types Packs/Day [...] Sex Assigned at Male 09/18/2023 1:29 PM FISH HATCHERY LABORER Legal Sex Male 12:25 PM CDT Gender Identity Male 09/18/2023 1:29 PM FISH HATCHERY LABORER Sexual Orientation Straight 09/18/2023 1: 29 PM FISH HATCHERY LABORER documented as of this encounter Plan of Treatment Upcoming Encounters Date Type Department Care Team (Late st Contact Info) Description 09/05/2024 11:20 AM FISH HATCHERY LABORER [facility] Visit [facility] ? [place] [address] [facility] [address] [place] [phone] Macario Benjamin MD [address] [address] 09/08/2024 2:00 PM FISH HATCHERY LABORER [facility] ? [place] [address] [phone] Omaira Bailey MD [address] [address] 09/13/2024 1:20 PM FISH HATCHERY LABORER [facility] ? [place] [address] [place] [address] [place] [address] [place] [address] documented as of this encounter Visit Diagnoses Not on filedocumented in this encounter Additional Health Concerns Assessment Noted Time PHQ-9 Depression Total Score: 3 03/03/20 24 1:26 PM CDT documented as of this encounter Care Teams Microbiology Teacher Relationship Specialty Start Date End Date Omaira Bailey MD [address] [facility] [address] [place], [place] [address] PCP - General Geriatric Medicine 06/28/23 documented as of this encounter
--- OUTSIDE RECORDS SUMMARY | 2024-07-29 18:39 | XMS_ITS | Encounter Summary ---
Author Organization [facility] Address [address] [place] [address] Care Team Providers Care Cook Helper Name Role Phone Omaira Bailey MD Primary Care Provider Encounter Details Date Type Department Care Team (Latest Contact Info) Description 10/08/2023 Travel Social History Tobacco Use Types Packs/Day Years Used Date Smoking Tobacco: Never Assessed Sex and Gender Information Value Date Recorded Sex Assigned at Male 09/18/2023 1:29 PM ASSOCIATE PASTOR Legal Sex Male 12:25 PM CDT Gender Identity Male 09/18/2023 1:29 PM ASSOCIATE PASTOR Sexual Orientation Straight 09/18/2023 1: 29 PM ASSOCIATE PASTOR documented as of this encounter Plan of Treatment Upcoming Encounters Date Type Department Care Team (Late st Contact Info) Description 09/05/2024 11:20 AM ASSOCIATE PASTOR Office Visit [facility] ? [place] [address] [phone] Macario Benjamin MD [address] [place], [place] [phone] 09/08/2024 2:00 PM ASSOCIATE PASTOR [facility] ? [place] [address] [phone] Omaira Bailey MD [address] [place], [place] [phone] 09/13/2024 1:20 PM ASSOCIATE PASTOR Office Visit [facility] ? [place] [address] [place] [address] [place] [address] [place] [address] documented as of this encounter Visit Diagnoses Not on filedocumented in this encounter Care Teams Cook Helper Relationship Specialty Start Date End Date Omaira Bailey MD [address] [facility] [address] [place], [place] [phone] PCP - General Geriatric Medicine 06/28/23 documented as of this encounter
--- OUTSIDE RECORDS SUMMARY | 2024-07-29 18:39 | XMS_ITS | Encounter Summary ---
Author Organization [facility] Address [address] [place] [address] Care Team Providers Care Architectural Project Captain Name Role Phone Omaira Bailey MD Primary Care Provider Encounter Details Date Type Department Care Team (Latest Contact Info) Description 10/06/2023 Travel Social History Tobacco Use Types Packs/Day Years Used Date Smoking Tobacco: Never Assessed Sex and Gender Information Value Date Recorded Sex Assigned at Male 09/18/2023 1:29 PM PLASTIC PRESS MOLDER Legal Sex Male 12:25 PM CDT Gender Identity Male 09/18/2023 1:29 PM PLASTIC PRESS MOLDER Sexual Orientation Straight 09/18/2023 1: 29 PM PLASTIC PRESS MOLDER documented as of this encounter Plan of Treatment Upcoming Encounters Date Type Department Care Team (Late st Contact Info) Description 09/05/2024 11:20 AM PLASTIC PRESS MOLDER [facility] ? [place] [address] [facility] [phone] Macario Benjamin MD [address] [place], [place] [phone] 09/08/2024 2:00 PM PLASTIC PRESS MOLDER [facility] ? [place] [address] [phone] Omaira Bailey MD [address] [place] [phone] 09/13/2024 1:20 PM PLASTIC PRESS MOLDER Office Visit [facility] ? [place] [address] [place] [address] [place] [address] [facility] [place] [address] documented as of this encounter Visit Diagnoses Not on filedocumented in this encounter Care Teams Architectural Project Captain Relationship Specialty Start Date End Date Omaira Bailey MD [address] [facility] [address] [place], [place] [phone] PCP - General Geriatric Medicine 06/28/23 documented as of this encounter
--- OUTSIDE RECORDS SUMMARY | 2024-07-29 18:39 | XMS_ITS | Encounter Summary ---
Author Organization Formerly [facility] Address [address] [place] [address] Care Team Providers Care Spiritual Counselor Name Role Phone Omaira Bailey MD Primary Care Provider [phone] Encounter Details Date Type Department Care Team (Latest Contact Info) Description 03/02/2024 Travel Social History Tobacco Use Types Packs/Day [...] Sex Assigned at Male 09/18/2023 1:29 PM COMPLIANCE REVIEWER Legal Sex Male 12:25 PM CDT Gender Identity Male 09/18/2023 1:29 PM COMPLIANCE REVIEWER Sexual Orientation Straight 09/18/2023 1: 29 PM COMPLIANCE REVIEWER documented as of this encounter Plan of Treatment Upcoming Encounters Date Type Department Care Team (Late st Contact Info) Description 09/05/2024 11:20 AM COMPLIANCE REVIEWER Office Visit [facility] ? [place] [address] [facility] [address] [place] [phone] Macario Benjamin MD [address] [address] 09/08/2024 2:00 PM COMPLIANCE REVIEWER Office Visit [facility] ? [place] [address] [phone] Omaira Bailey MD [address] [address] 09/13/2024 1:20 PM COMPLIANCE REVIEWER Office Visit [facility] ? [place] [address] [place] [address] [place] [address] [address] [facility] [place] [address] documented as of this encounter Visit Diagnoses Not on filedocumented in this encounter Care Teams Spiritual Counselor Relationship Specialty Start Date End Date Omaira Bailey MD [address] [place], [place] [address] PCP - General Geriatric Medicine 06/28/23 documented as of this encounter
--- OUTSIDE RECORDS SUMMARY | 2024-07-29 18:39 | XMS_ITS | Encounter Summary ---
Author Organization [facility] Address [address] [place] [address] Care Team Providers Care Assembly Machine Offbearer Name Role Phone Omaira Bailey MD Primary Care Provider [phone] Reason for Referral * Consultation (Routine) - Closed Specialty Diagnoses / Procedures Referred By Missael t Referred To Contact Cardiology Diagnoses Vertigo Syncope, unspecified syncope type Omaira Bailey MD [address] [place] [address] Phone: tel: fax: [facility] ? [address] [address] Phone: tel: fax: Referral ID Status Reason Start Date Expiration Date V isits Requested Visits Authorized [id number] Closed Specialty Services Required 09/17/2023 03/15/2024 1 1 MANAGER * Imaging (Routine) - Closed Specialty Diagnoses / Procedures Referred By Contac t Referred To Contact Cardiology Diagnoses Vertigo Syncope, unspecified syncope type Procedures Echocardiogram 2D complete Omaira Bailey MD [address] [facility] [address], [place] [address] Phone: tel: fax: Referral ID Status Reason Start Date Expiration Date V isits Requested Visits Authorized [id number] Closed Perform Procedure 09/17/2023 03/15/2024 1 1 MANAGER * Consultation (Routine) - Closed Specialty Diagnoses / Procedures Referred By Contac t Referred To Contact Physical Therapy Diagnoses Vertigo Syncope, unspecified syncope type Omaira Bailey MD [address] [facility] [address] [address] Phone: tel: fax: Outpatient Rehab Phone: tel: fax: Referral ID Status Reason Start Date Expiration Date V isits Requested Visits Authorized [id number] Closed Evaluate and Treat 09/17/2023 03/15/2024 10 10 MANAGER Reason for Visit * Reason Comments Establish Care New patient Encounter Details Date Type Department Care Team (Late st Contact Info) Description 09/17/2023 1:00 PM DATA MANAGER Office Visit [facility] ? [place] [address] [facility] [address] [phone] Omaira Bailey MD [address] [facility] [address] [place], [place] [phone] Vertigo (Primary Dx); Dizziness; Benign prostatic hyperplasia with urinary hesitancy; Mixed hyperlipidemia; Impaired fasting glucose; Primary hypertension; Perforation of both tympanic membranes; Syncope, unspecified syncope type Social History Tobacco Use Types Packs/Day Years Used Date Smoking Tobacco: Never Assessed Sex and Gender Information Value Date Recorded Sex Assigned at Male 09/18/2023 1:29 PM DATA MANAGER Legal Sex Male 12:25 PM CDT Gender Identity Male 09/18/2023 1:29 PM DATA MANAGER Sexual Orientation Straight 09/18/2023 1: 29 PM DATA MANAGER documented as of this encounter Last Filed Vital Signs Vital Sign Reading Time Taken Comments Blood Pressure 126/63 09/17/2023 1:15 PM DATA MANAGER Pulse 76 09/17/2023 1:15 PM DATA MANAGER Temperature 36.7 ??C (98 ??F) 09/17/2023 1:09 PM DATA MANAGER Respiratory Rate - - Oxygen Saturation - - Inhaled Oxygen Concentration - - Weight 95.3 kg (210 lb) 09/17/2023 1:09 PM DATA MANAGER Height 174 cm (5' 8.5 ) 09/17/2023 1:09 PM DATA MANAGER Body Mass Index 31.47 09/17/2023 1:09 PM DATA MANAGER documented in this encounter Patient Instructions * Patient Instructions* Omaira Bailey MD - 09/17/2023 1:00 PM DATA MANAGER It was a pleasure to meet with you today. We discussed a number of things. I would like to follow-up on the following. 1) Both of your ear drums look ruptured, I would suggest you follow-up with your ENT specialist to help with any treatment and follow-up. 2) For your fainting episodes, I would like to do an EKG today and then make a referral for an echocardiogram. Please call the non-invasive cardiology appointment line to make an appointment: [phone] I would then like for you to follow-up with cardiology here in our [place] clinic. Please call this number to make an appointment: [phone] 3) Please make a referral to physical therapy as I would like them to evaluate your vertigo symptoms which I think maybe related to otoliths in your inner ear. They can do a diagnostic assessment andthen teach you some maneuvers to remove the otoliths through movement. [phone] [facility] [address] in [place] 4) Please fill out the paper work for malini and I will submit it for insurance approval 5) Go by the lab today for some new patient lab assessments I will see you back in 3 months to follow-up on these items MANAGER MANAGER MANAGER documented in this encounter Plan of Treatment Upcoming Encounters Date Type Department Care Team (Late st Contact Info) Description 09/05/2024 11:20 AM DATA MANAGER Office Visit [facility] ? [place] [address] [phone] Macario Benjamin MD [address] [address] 09/08/2024 2:00 PM DATA MANAGER Office Visit [facility] ? [place] [address] [phone] Omaira Bailey MD [address] [place], [place] [phone] 09/13/2024 1:20 PM DATA MANAGER Office Visit [facility] ? [place] [address] [place] [address] [place] [address] [place] [address] Scheduled Referrals Name Type Priority Associated Diagnoses Orde r Schedule Ambulatory referral to Physical Therapy Outpatient Referral Routine Vertigo Syncope, unspecified syncope type Expected: 09/17/2023, Expires: 03/17/2024 Ambulatory referral to Cardiology Outpatient Referral Routine Vertigo Syncope, unspecified syncope type Expected: 09/17/2023, Expires: 09/17/2024 documented as of this encounter Procedures Procedure Name Priority Date/Time Associated Diagnosis Comments ECHOCARDIOGRAM 2D COMPLETE Routine 10/08/2023 2:00 PM CDT Vertigo Syncope, unspecified syncope type ECG 12-LEAD Routine 10/07/2023 9:12 AM CDT Dizziness TSH W/REFLEX TO FT4 Routine 09/17/2023 3 :01 PM DATA MANAGER Mixed hyperlipidemia Impaired fasting glucose Primary hypertension CBC AND DIFFERENTIAL Routine 09/17/2023 3:01 PM DATA MANAGER Primary hypertension Syncope, unspecified syncope type HEMOGLOBIN A1C Routine 09/17/2023 3:01 PM DATA MANAGER Impaired fasting glucose LIPID PANEL Routine 09/17/2023 3:01 PM DATA MANAGER Mixed hyperlipidemia COMPREHENSIVE METABOLIC PANEL Routine 09/17/2023 3:01 PM DATA MANAGER Dizziness Mixed hyperlipidemia Impaired fasting glucose Primary hypertension Syncope, unspecified syncope type documented in this encounter Results * ECHOCARDIOGRAM 2D COMPLETE (10/08/2023 2:00 PM CDT) asc Aorta Diam 3.4 cm ISCV Heart Rate 71 BPM ISCV IVSd 1 cm ISCV LA dimension 3.4 cm ISCV LVIDd 4.2 cm ISCV LVOT diam 2 cm ISCV LVPWd 1.1 cm ISCV TAPSE 2 cm ISCV MV dec time 0.28 sec ISCV Ao max PG 6.7 mmHg ISCV Ao mean PG 4 mmHg ISCV Ao V2 max 129 cm/sec ISCV Ao V2 VTI 26.6 cm ISCV Lat Peak E' Natan 8.3 cm/sec ISCV LV V1 mean PG 3 mmHg ISCV LV V1 max 117 cm/sec ISCV LV V1 VTI 22.3 cm ISCV Med Peak E' Natan 7.8 cm/sec ISCV MV A max natan 96.4 cm/sec ISCV MV E max natan 82.8 cm/sec ISCV PA max PG 2.6 mmHg ISCV PA mean PG 1 mmHg ISCV PA V2 VTI 14 cm ISCV RV V1 VTI 13.1 cm ISCV TR max PG 24.2 mmHg ISCV TR max natan 246 cm/sec ISCV Ao root diam 3.9 cm ISCV Heart Rate 71 BPM ISCV Ao root diam 3.9 cm ISCV asc Aorta Diam 3.4 cm ISCV IVSd 1 cm ISCV LA dimension 3.4 cm ISCV LVIDd 4.2 cm ISCV LVOT diam 2 cm ISCV LVPWd 1.1 cm ISCV Ao root diam 3.9 cm ISCV Mean Aortic Valve Area Variation 2.6 cm ISCV RVSP(TR) 27.2 mmHg ISCV SI(LVOT) 33.6 ml/m ISCV SV(LVOT) 70.1 ml ISCV SV(MOD-sp4) 64 ml ISCV Anatomical Region Laterality Modality Echocardiography 10/08/2023 1:28 PM CDT Narrative 10/08/2023 3:16 PM CDT +---------+ ? + + : ? : ? : ?: : ? : ? : ?: : ? : ? : ?: +---------+ ? + + ? Echocardiographic Report + :Name: JEAN SAINZudkath Date: 10/08/2023 01:28 PM ? BP: 158/83 mmHg : : ?[facility] ?? HR: 71 ?? : :: 1940 ? Age: 83 yrs ? Height: 68 in ?? : :Gender: Male ?Weight: 210 lb : :Performed By: Elizabeth, ? : :Mary Ann, RCS, RVS ?BSA: 2.1 m2 ? : :Ordering Physician: OMAIRA BAILEY ? : + +: ::Reason For Study: Syncope/fainting ? :: ::History: HTN, HLD ? :: + +: + MMode/2D Measurements & Calculations IVSd: 1.0 cm ?LVIDd: 4.2 cm ? FS: 35.7 % LVPWd: 1.1 cm ? LVIDs: 2.7 cm ? Ao root diam: 3.9 cm ?asc Aorta Diam: 3.4 cm ?LVOT diam: 2.0 cm Ao root diam Index: 1.9 asc Aorta Diam Index: 1.6 LA dimension: 3.4 cm ?Ao STJ Diam_(2D): 3.7 cm ?TAPSE: 2.0 cm ? EDV(MOD-sp4): 101.0 ml ??EDV(MOD-sp2): 100.0 ml ?LA A2 area: 18.3 cm2 ESV(MOD-sp4): 37.0 ml ?? ESV(MOD-sp2): 37.8 ml ? LA A4 area: 17.9 cm2 EF(MOD-sp4): 63.4 % ? EF(MOD-sp2): 62.2 % ? LA length (vol): 5.2 cm ?LA vol index: 25.6 ml/m2 ?LAV(MOD-sp2): 51.2 ml ?LAV(MOD-sp4): 49.7 ml ? RV Base_phl: 3.5 cm ? CI(LVOT)2: 2.4 l/min/m2 ? CO(LVOT)2: 5.0 l/min ? EDV (MOD-bp): 101.0 ml ??EF (MOD-bp): 62.4 % ? ESV (MOD-bp): 38.0 ml ? LA ESV (BP): 50.5 ml ?LA ESV Index (BP): 24.2 ml/m2 LVMI: 70.4 grams/m2 ? RA Volume: 20.6 ml ?RWT: 0.52 ?RA Volume Index: 9.9 ml/m2 Doppler Measurements & Calculations MV E max natan: 82.8 cm/sec ??MV dec time: 0.28 sec ?? Lat Peak E' Natan: 8.3 cm/sec MV A max natan: 96.4 cm/sec ?E/E' lat: 10.0 MV E/A: 0.86 ? Med Peak E' Natan: 7.8 cm/sec ? E/E' med: 10.6 ? MV dec slope: 292.0 cm/sec2Ao V2 max: 129.0 cm/sec LV V1 max: 117.0 cm/sec ? Ao max P.7 mmHg ? LV V1 max P.5 mmHg ? Ao mean P.0 mmHg ?LV V1 mean P.0 mmHg ? Ao V2 mean: 96.1 cm/sec LV V1 mean: 74.8 cm/sec ? Ao V2 VTI: 26.6 cm ?LV V1 VTI: 22.3 cm ? ROSEANN(I,D): 2.6 cm2 ? ROSEANN(V,D): 2.8 cm2 ? SI(LVOT): 33.6 ml/m2 ? PA V2 max: 80.5 cm/sec ??RV V1 max P.5 mmHg ? PA max P.6 mmHg ? RV V1 mean P.0 mmHg ? PA V2 mean: 54.6 cm/sec RV V1 max: 61.5 cm/sec ? PA mean P.0 mmHg ?RV V1 mean: 41.0 cm/sec ? PA V2 VTI: 14.0 cm ?RV V1 VTI: 13.1 cm ? TR max natan: 246.0 cm/sec ?? PVR(Briscoe Unit): 0.35 TR max P.2 mmHg RAP systole: 3.0 mmHg RVSP(TR): 27.2 mmHg Left Ventricle The left ventricle is normal in size. There is concentric LV remodeling. Left ventricular systolic function is normal. Ejection Fraction = 60-64%. Normal diastolic function. Right Ventricle The right ventricle is normal in size and function. Atria The left atrial size is normal. Right atrial size is normal. Mitral Valve The mitral valve leaflets appear thickened, but open well. There is trace mitral regurgitation. Tricuspid Valve The tricuspid valve is not well visualized. There is trace tricuspid regurgitation. Right ventricular systolic pressure is <35mmHg. Aortic Valve The aortic valve is trileaflet. The aortic valve opens well. The aortic valve leaflets are thickened. Trace aortic regurgitation. Pulmonic Valve The pulmonic valve is not well visualized. Great Vessels Borderline aortic root dilatation. [3.9cm]. Pericardium/Pleural There is no pericardial effusion. IVC/Hepatic Vein Normal inferior vena cava size. With respiration, the inferior vena cava diameter changes = >50%. Interpretation Summary A complete two-dimensional transthoracic echocardiogram was performed (2D, M- mode, PW/CW Doppler and color flow Doppler). There is no comparison study available. The study was technically adequate. The left ventricle is normal in size. There is concentric LV remodeling Left ventricular systolic function is normal. Ejection Fraction = 60-64%. The right ventricle is normal in size and function. Right ventricular systolic pressure is <35mmHg. Trace aortic regurgitation. No significant valvular abnormalities. Borderline aortic root dilatation. There is no pericardial effusion. No prior study for comparison. Electronically Signed by: ? Macario Benjamin MD 10/08/2023 03:16 PM Procedure Note Macario Benjamin MD - 10/08/2023 +---------+ + + : : : : : : : : : : : : +---------+ + + Echocardiographic Report + :Name: JEAN SAINZ LStudy Date: 10/08/2023 01:28 PM BP: 158/83mmHg : : Patient Location: [facility] HR: 71 : :: 1940 Age: 83 yrs Height: 68in : :Gender: Male Weight: 210lb : :Performed By: Elizabeth, : :ARDEN Reese, RVS BSA: 2.1 m2 : :Ordering Physician: OMAIRA BAILEY : + +: ::Reason For Study: Syncope/fainting :: ::History: HTN, HLD :: + +: + MMode/2D Measurements & Calculations IVSd: 1.0 cm LVIDd: 4.2 cm FS: 35.7 % LVPWd: 1.1 cm LVIDs: 2.7 cm Ao root diam: 3.9 cm asc Aorta Diam: 3.4 cm LVOT diam: 2.0 cm Ao root diam Index: 1.9 asc Aorta Diam Index: 1.6 LA dimension: 3.4 cm Ao STJ Diam_(2D): 3.7 cm TAPSE: 2.0 cm EDV(MOD-sp4): 101.0 ml EDV(MOD-sp2): 100.0 ml LA A2 area: 18.3cm2 ESV(MOD-sp4): 37.0 ml ESV(MOD-sp2): 37.8 ml LA A4 area: 17.9cm2 EF(MOD-sp4): 63.4 % EF(MOD-sp2): 62.2 % LA length (vol): 5.2cm LA vol index: 25.6ml/m2 LAV(MOD-sp2): 51.2ml LAV(MOD-sp4): 49.7ml RV Base_phl: 3.5 cm CI(LVOT)2: 2.4 l/min/m2 CO(LVOT)2: 5.0l/min EDV (MOD-bp): 101.0 ml EF (MOD-bp): 62.4 % ESV (MOD-bp): 38.0ml LA ESV (BP): 50.5 ml LA ESV Index (BP): 24.2 ml/m2 LVMI: 70.4grams/m2 RA Volume: 20.6 ml RWT: 0.52 RA Volume Index: 9.9 ml/m2 Doppler Measurements & Calculations MV E max natan: 82.8 cm/sec MV dec time: 0.28 sec Lat Peak E' Natan: 8.3cm/sec MV A max natan: 96.4 cm/sec E/E' lat: 10.0 MV E/A: 0.86 Med Peak E' Natan: 7.8cm/sec E/E' med: 10.6 MV dec slope: 292.0 cm/sec2Ao V2 max: 129.0 cm/sec LV V1 max: 117.0cm/sec Ao max P.7 mmHg LV V1 max P.5mmHg Ao mean P.0 mmHg LV V1 mean P.0mmHg Ao V2 mean: 96.1 cm/sec LV V1 mean: 74.8cm/sec Ao V2 VTI: 26.6 cm LV V1 VTI: 22.3 cm ROSEANN(I,D): 2.6 cm2 ROSEANN(V,D): 2.8 cm2 SI(LVOT): 33.6 ml/m2 PA V2 max: 80.5 cm/sec RV V1 max P.5mmHg PA max P.6 mmHg RV V1 mean P.0mmHg PA V2 mean: 54.6 cm/sec RV V1 max: 61.5cm/sec PA mean P.0 mmHg RV V1 mean: 41.0cm/sec PA V2 VTI: 14.0 cm RV V1 VTI: 13.1 cm TR max natan: 246.0 cm/sec PVR(Briscoe Unit): 0.35 TR max P.2 mmHg RAP systole: 3.0 mmHg RVSP(TR): 27.2 mmHg Left Ventricle The left ventricle is normal in size. There is concentric LV remodeling.Left ventricular systolic function is normal. Ejection Fraction = 60-64%.Normal diastolic function. Right Ventricle The right ventricle is normal in size and function. Atria The left atrial size is normal. Right atrial size is normal. Mitral Valve The mitral valve leaflets appear thickened, but open well. There istrace mitral regurgitation. Tricuspid Valve The tricuspid valve is not well visualized. There is trace tricuspid regurgitation. Right ventricular systolic pressure is <35mmHg. Aortic Valve The aortic valve is trileaflet. The aortic valve opens well. The aorticvalve leaflets are thickened. Trace aortic regurgitation. Pulmonic Valve The pulmonic valve is not well visualized. Great Vessels Borderline aortic root dilatation. [3.9cm]. Pericardium/Pleural There is no pericardial effusion. IVC/Hepatic Vein Normal inferior vena cava size. With respiration, the inferior vena cava diameter changes = >50%. Interpretation Summary A complete two-dimensional transthoracic echocardiogram was performed (2D,M- mode, PW/CW Doppler and color flow Doppler). There is no comparisonstudy available. The study was technically adequate. The left ventricle is normal in size. There is concentric LV remodeling Left ventricular systolic function is normal. Ejection Fraction = 60-64%. The right ventricle is normal in size and function. Right ventricular systolic pressure is <35mmHg. Trace aortic regurgitation. No significant valvular abnormalities. Borderline aortic root dilatation. There is no pericardial effusion. No prior study for comparison. Electronically Signed by: Macario Benjamin MD 10/08/2023 03:16 PM Omaira Bailey MD CV ECHO PROCEDURES Final Result * ECG 12 lead (10/07/2023 9:12 AM CDT) Narrative Kalpana Toro RN - 10/07/2023 9:12 AM CDT Sinus Bradycardia -With rate variation cv = 18. Low voltage in precordial leads. -Old inferior infarct -Poor R-wave progression -may be secondary to pulmonary disease ??consider old anterior infarct. ABNORMAL Omaira Bailey MD ECG ORDERABLES Final Result * (ABNORMAL) Lipid panel (09/17/2023 3:01 PM DATA MANAGER) Cholesterol 164 <200 MG/DL CPL TRIGLYCERIDES 190(H) <150 MG/DL CPL HDL CHOLESTEROL 34(L) >39 MG/DL CPL LDL-CHOLESTEROL 99 <100 MG/DL CPL Comment: NOTE: CALCULATED LDL IS BASED ON ARIADNA-AMAYA METHOD WHICH INCLUDES ADJUSTABLE TRIGLYCERIDE:VLDL CHOLESTEROL RATIO. THIS FACTOR VARIES BY MEASURED TRIGLYCERIDE AND NON-HDL CHOLESTEROL CONCENTRATIONS WITH INCREASED CALCULATED LDL SEEN IN HIGHER TRIGLYCERIDE OR LOWER NON-HDL SPECIMENS. FOR MORE INFORMATION, SEE CLIENT ANNOUNCEMENT AT [email or web address] LDL/HDL RATIO 2.91 <3.55 RATIO [facility] Comment: Testing Performed At: [facility]: ??[facility], [address] [place] [address] Piano Mover: Audelia Olivera M.D., CLIA #: [id number] Blood (Blood) 09/17/2023 3:0 1 PM DATA MANAGER 09/17/2023 5:04 PM DATA MANAGER Omaira Bailey MD LAB BLOOD ORDERABLES Final Resul t Performing Organization Address [facility] [place] [address], * TSH W/REFLEX TO FT4 (09/17/2023 3:01 PM DATA MANAGER) TSH W/REFLEX TO FT4 1.890 0.400 - 4.100 UIU/ML [facility] Comment: Testing Performed At: [facility]: ??[facility], [address] [place], [place] [address] Piano Mover: Audelia Olivera M.D., CLIA #: [id number] 09/17/2023 3:01 PM DATA MANAGER 09/17/2023 5:04 PM DATA MANAGER Omaira Bailey MD LAB BLOOD ORDERABLES Final Resul t Performing Organization Address [facility] de Phone Number [address] * (ABNORMAL) Hemoglobin A1c (09/17/2023 3:01 PM DATA MANAGER) HEMOGLOBIN A1c 5.7(H) 4.2 - 5.6 % [facility] Comment: ? [employer] GUIDELINES FOR HGB A1C: ?PREDIABETES/INCREASED RISK . . . . . . . 5.7-6.4% ?DIAGNOSIS OF DIABETES ??. . . . . . . . . >=6.5% ?WITH CONFIRMATION OR APPROPRIATE SYMPTOMS ? NOTE: ASSAY MAY BE AFFECTED BY HEMOGLOBINOPATHIES (SICKLE ? CELL ANEMIA, S-C DISEASE, OTHERS) OR ARTIFICIALLY LOWERED BY ? DECREASED RED CELL SURVIVAL (HEMOLYTIC ANEMIAS, BLOOD LOSS, ? ETC.). ??CONSIDER ALTERNATE TESTING OR LABORATORY CONSULTATION. Testing Performed At: [facility]: ??[facility], [address] [place] [address] Piano Mover: Audelia Olivera M.D., [facility] #: [id number] Blood (Blood) 09/17/2023 3:0 1 PM DATA MANAGER 09/17/2023 5:04 PM DATA MANAGER us Omaira Bailey MD LAB BLOOD ORDERABLES Final Resul t [facility] [address] [place] [address], * (ABNORMAL) CBC and differential (09/17/2023 3:01 PM DATA MANAGER) WHITE BLOOD CELL COUNT 15.9(H) 3.5 - 11.0 K/UL CPL RED BLOOD CELL COUNT 4.80 4.50 - 6.10 M/UL CPL HEMOGLOBIN 14.1 13.5 - 17.0 G/DL CPL HEMATOCRIT 43.3 40.0 - 51.0 % CPL MCV 90.2 80.0 - 99.0 fL CPL MCH 29.4 25.0 - 33.0 PG CPL MCHC 32.6 31.0 - 36.0 G/DL CPL RDW 12.1 % CPL NEUTROPHILS 58.6 % CPL LYMPHOCYTES 31.2 % CPL MONOCYTES 8.8 % CPL EOSINOPHILS 0.8 % CPL BASOPHILS 0.2 % CPL Immature Granulocytes 0.4 % CPL NUCLEATED RBC 0.0 0.0 /100 WBC'S CPL PLATELET COUNT 151 130 - 400 K/UL CPL ABSOLUTE NEUTROPHILS 9.30(H) 1.50 - 7.50 K/UL CPL ABSOLUTE LYMPHOCYTES 4.94(H) 1.00 - 4.00 K/UL CPL ABSOLUTE MONOCYTES 1.39(H) 0.20 - 1.00 K/UL CPL ABSOLUTE EOSINOPHILS 0.12 0.00 - 0.50 K/UL CPL ABSOLUTE BASOPHILS 0.03 0.00 - 0.20 K/UL CPL Immature Granulocytes 0.07 0.00 - 0.10 K/UL CPL ABSOLUTE NUCLEATED RBC 0.00 K/UL CPL Comment: Testing Performed At: [facility]: ??[facility], [address] [facility], [place] [address] Piano Mover: Audelia Olivera M.D., [facility] #: [id number] Blood (Blood) 09/17/2023 3:0 1 PM DATA MANAGER 09/17/2023 5:04 PM DATA MANAGER us Omaira Bailey MD LAB BLOOD ORDERABLES Final Resul t [facility] [address] [place] [address], * (ABNORMAL) Comprehensive metabolic panel (09/17/2023 3:01 PM DATA MANAGER) GLUCOSE 83 70 - 99 MG/DL CPL BUN 19 8 - 23 MG/DL CPL CREATININE 1.29 0.80 - 1.40 MG/DL CPL eGFR If NonAfricn Am 55(L) >60 ML/MIN/1.7 3 CPL Comment: The NKF-ASN Taskforce recommends use of Cystatin C to confirm eGFR in adults at risk for CKD. ??[facility] offers eGFR with Cystatin C-Creatinine using the 2020 CKD-EPI eGFR_creat-cystat equation (order code 3057) to increase the accuracy of estimated GFR. For more information, contact your accounting supervisor or see announcement at [email or web address] BUN/[email or web address] RATIO 15 6 - 28 RATIO CPL SODIUM 141 133 - 146 MEQ/L CPL POTASSIUM 5.0 3.5 - 5.4 MEQ/L CPL CHLORIDE 105 95 - 107 MEQ/L CPL CARBON DIOXIDE 24 19 - 31 MEQ/L CPL CALCIUM 10.6(H) 8.5 - 10.5 MG/DL CPL PROTEIN, TOTAL 6.2 6.1 - 8.3 G/DL CPL ALBUMIN 4.1 3.5 - 5.2 G/DL CPL GLOBULIN 2.1 1.9 - 3.7 G/DL CPL A/G RATIO 2.0 1.0 - 2.6 RATIO CPL BILIRUBIN, TOTAL 0.5 <=1.2 MG/DL CPL ALKALINE PHOSPHATASE 81 40 - 125 U/L CPL AST 12 9 - 50 U/L CPL ALT 30 5 - 50 U/L CPL Comment: Testing Performed At: [facility]: ??[facility], [address] [place] [address], [place] [address] Piano Mover: Audelia Olivera M.D., [facility] #: [id number] Blood (Blood) 09/17/2023 3:0 1 PM DATA MANAGER 09/17/2023 5:04 PM DATA MANAGER us Omaira Bailey MD LAB BLOOD ORDERABLES Final Resul t [facility] [address] [place] [address], documented in this encounter Visit Diagnoses Diagnosis Vertigo- Primary Dizziness and giddiness Dizziness Dizziness and giddiness Benign prostatic hyperplasia with urinary hesitancy Mixed hyperlipidemia Impaired fasting glucose Primary hypertension Unspecified essential hypertension Perforation of both tympanic membranes Syncope, unspecified syncope type documented in this encounter Care Teams Assembly Machine Offbearer Relationship Specialty Start Date End Date Omaira Bailey MD [address] [place] [id number] PCP - General Geriatric Medicine 06/28/23 documented as of this encounter
--- OUTSIDE RECORDS SUMMARY | 2024-07-29 18:39 | XMS_ITS | Encounter Summary ---
Author Organization [facility] Address [address] [place] [address] Care Team Providers Care Shellfish Grower Name Role Phone Omaira Bailey MD Primary Care Provider Reason for Visit * Imaging (Routine) - Closed Specialty Diagnoses / Procedures Referred By Missael jaimes Referred To Contact Cardiology Diagnoses Vertigo Syncope, unspecified syncope type Procedures Echocardiogram 2D complete Omaira Bailey MD [address] [facility] [address] [address] Phone: tel: fax: Referral ID Status Reason Start Date Expiration Date V isits Requested Visits Authorized [id number] Closed Perform Procedure 09/17/2023 03/15/2024 1 1 Encounter Details Date Type Department Care Team (Late st Contact Info) Description 10/08/2023 2:00 PM CDT Ancillary Procedure [facility] [place] [address] [facility] [address] [phone] Social History Tobacco Use Types Packs/Day Years Used Date Smoking Tobacco: Never Assessed Sex and Gender Information Value Date Recorded Sex Assigned at Male 09/18/2023 1:29 PM MATERIALS AND PROCESSES MANAGER Legal Sex Male 12:25 PM CDT Gender Identity Male 09/18/2023 1:29 PM MATERIALS AND PROCESSES MANAGER Sexual Orientation Straight 09/18/2023 1: 29 PM MATERIALS AND PROCESSES MANAGER documented as of this encounter Plan of Treatment Upcoming Encounters Date Type Department Care Team (Late st Contact Info) Description 09/05/2024 11:20 AM MATERIALS AND PROCESSES MANAGER Office Visit [facility] [place] [address] [phone] Macario Benjamin MD [address] [address] 09/08/2024 2:00 PM MATERIALS AND PROCESSES MANAGER Office Visit [facility] ? [place] [address] [phone] Omaira Bailey MD [address] [place] [address] 09/13/2024 1:20 PM MATERIALS AND PROCESSES MANAGER Office Visit [facility] [place] [address] [place] [address] [place] [address] [place] [address] documented as of this encounter Procedures Procedure Name Priority Date/Time Associated Diagnosis Comments ECHOCARDIOGRAM 2D COMPLETE Routine 10/08/2023 2:00 PM CDT Vertigo Syncope, unspecified syncope type documented in this [...] + ? Echocardiographic Report + :Name: JEAN SAINZ LStudy Date: 10/08/2023 01:28 PM ? BP: 158/83 [...] PM BP: 158/83mmHg : : Patient Location: [facility]^[place] HR: 71 : :: 1940 Age: 83 [...] Bailey MD CV ECHO PROCEDURES Final Result documented in this encounter Visit Diagnoses Not on filedocumented in this encounter Care Teams Shellfish Grower Relationship Specialty Start Date End Date Omaira Bailey MD [address] [facility] [address] [place] [address] PCP - General Geriatric Medicine 06/28/23 documented as of this encounter
--- OUTSIDE RECORDS SUMMARY | 2024-07-29 18:39 | XMS_ITS | Encounter Summary ---
Author Organization [facility] Address [address] [place] [address] Care Team Providers Care Acquisitions Editor Name Role Phone Omaira Bailey MD Primary Care Provider [phone] Reason for Referral * Outpatient Surgery (Routine) - Closed Specialty Diagnoses / Procedures Referred By Missael jaimes Referred To Contact Diagnoses Hx of cardiac arrhythmia Procedures Orders for Surgery OR INSERTION SUBQ CARDIAC RHYTHM MONITOR W/PRGRMG Jeferson Davies MD [address] [place] [address] Phone: tel: fax: [facility] [address] [place] [address] Referral ID Status Reason Start Date Expiration Date Visits Re quested Visits Authorized [id number] Closed 03/31/2024 09/27/2024 1 1 Reason for Visit * Reason Comments Establish Care Heart rhythm issues * Consultation (Routine) - Authorized Specialty Diagnoses / Procedures Referred By Missael jaimes Referred To Contact Cardiology Diagnoses Syncope, unspecified syncope type Bradycardia High triglycerides Macario Benjamin MD [address] [facility] [address] [address] Phone: tel: fax: [facility] [place] [address] [facility] [address] [address] Phone: tel: fax: Referral ID Status Reason Start Date Expiration Date Visits Requested Visits Authorized [id number] Authorized Evaluate and Treat 03/02/2024 08/29/2024 12 12 Encounter Details Date Type Department Care Team (Late st Contact Info) Description 03/30/2024 9:00 AM CDT Office Visit [facility] [place] [address] [facility] [place] [address] Jeferson Davies MD [address] [facility] [place] [address] Hx of cardiac arrhythmia (Primary Dx) Social History Tobacco Use Types [...] Sex Assigned at Male 09/18/2023 1:29 PM SECURITY SOLUTIONS ENGINEER Legal Sex Male 12:25 PM CDT Gender Identity Male 09/18/2023 1:29 PM SECURITY SOLUTIONS ENGINEER Sexual Orientation Straight 09/18/2023 1: 29 PM SECURITY SOLUTIONS ENGINEER documented as of this encounter Last Filed Vital Signs Vital Sign Reading Time Taken Comments Blood Pressure 153/75 03/30/2024 8:45 AM CDT Pulse 45 03/30/2024 8:45 AM CDT Temperature - - Respiratory Rate - - Oxygen Saturation - - Inhaled Oxygen Concentration - - Weight 85.4 kg (188 lb 3.2 oz) 03/30/2024 8:45 A M CDT Height 177.8 cm (5' 10 ) 03/30/2024 8:45 AM CDT Body Mass Index 27 03/30/2024 8:45 AM CDT documented in this encounter Progress Notes * Jeferson Umana MD - 03/30/2024 9:00 AM CDT Cardiac Electrophysiology Clinic Visit DATE OF VISIT: 03/30/2024 CHIEF COMPLAINT: Seen in follow up for evaluation of cardiac arrhythmia REFERRING: Macario Benjamin MD HISTORY OF PRESENTING ILLNESS: Alfred Dodge is a 83 year male with history of benign prostatic hyperplasia, mild thrombocytopenia, borderline A1c, HTN, that was graciously referred by Dr. Benjamin for sinus bradycardia evaluation and consideration for ILR implant. The patient reports episodes of dizziness and frequent falls, but this has not been clearly relatedto episodes of bradycardia. Cardiac Evaluation 2023 TTE: LV normal size and function EF 60-64%, concentric remodeling, RV normal, trace AI, RVSP <35mmHg, borderline aortic root 3.9cm, no pericardial effusion December 2023 EKG: sinus bradycardia at 44bpm, first degree AV delay December 2023 Nuc stress: normal ETT, normal MPI (small mild inferior/apical artifact), normal EF January 2024 14d amb monitor: sinus bradycardia, HR 34-130bpm, mean rate 57bpm, frequent APCs/AT runs,occ PVCs/couplets, one 3 beats run of VT at 133bpm During stress test he reached heart rates up to 140 bpm with exercise. PAST MEDICAL HISTORY: Past Medical History: Diagnosis Date Bradycardia High triglycerides Syncope Vertigo PAST SURGICAL HISTORY: No past surgical history on file. FAMILY HISTORY: No family history on file. SOCIAL HISTORY: Social History Tobacco Use Smoking status: Never Passive exposure: Past (Parents smoked) Smokeless tobacco: Never Substance Use Topics Alcohol use: Yes Alcohol/week: 1.0 standard drink of alcohol Types: 1 Glasses of wine per week ALLERGIES: Allergies Allergen Reactions Ciprofloxacin Pain in calves Indomethacin Pain in calves HOME MEDICATIONS: Current Outpatient Medications Medication Sig Dispense Refill alfuzosin (Uroxatral) 10 MG 24 hr tablet Take 20 mg by mouth 1 (one) time each day. finasteride (Proscar) 5 MG tablet Take 5 mg by mouth 1 (one) time each day. Current Facility-Administered Medications Medication Dose Route Frequency Provider Last Rate Last Admin technetium Tc-99m sestamibi (Cardiolite) radio-isotope injection 18-45 millicurie 18-45 millicurie Intravenous DESEAN Patrick MD 33 millicurie at 01/12/24 1135 technetium Tc-99m sestamibi (Cardiolite) radio-isotope injection 8-18 millicurie 8-18 millicurie Intravenous DESEAN Patrick MD 11.3 millicurie at 01/12/24 0855 REVIEW OF SYSTEMS: Constitutional: no fevers, weight loss, night sweats HEENT: No epistaxis, sore throat Eyes: No visual changes, jaundice Respiratory: No cough, hemoptysis, pleurisy Cardiovascular: See HPI Gastrointestinal: No nausea, vomiting, diarrhea, constipation Genitourinary: No hematuria, irritation, frequency Musculoskeletal: No myalgias or arthralgias Skin: No rash, hematomas, ecchymosis Neurological: No focal weakness Psychiatric: No changes in mood or affect VITALS: There were no vitals taken for this visit. PHYSICAL EXAM: General: Well-appearing in no apparent distress. Eyes: Conjunctivae and lids normal. HEENT: Hearing intact. Oropharynx clear. Lips grossly normal. Neck: No asymmetry. Respiratory: Normal respiratory effort. Lungs clear to auscultation bilaterally Cardiovascular: Regular rate and rhythm. No lower extremity edema bilaterally. Gastrointestinal: Soft, non-tender. Musculoskeletal: Normal gait and station. Skin: No rashes Neurologic: Strength grossly intact. Psychiatric: Normal mood and affect. Oriented to person, place, and time. LABS: Office Visit on 03/03/2024 Component Date Value Ref Range Status CALCIUM, IONIZED 03/08/2024 5.7 (H) 4.7 - 5.5 mg/dL Final Comment: REPORT COMMENT: FASTING:NO PARATHYROID HORMONE, INTACT 03/08/2024 150 (H) 16 - 77 pg/mL Final Comment: Interpretive Guide Intact PTH Calcium ------- Normal Parathyroid Normal Normal Hypoparathyroidism Low or Low Normal Low Hyperparathyroidism Primary Normal or High High Secondary High Normal or Low Tertiary High High Non-Parathyroid Hypercalcemia Low or Low Normal High REPORT COMMENT: FASTING:NO Office Visit on 03/02/2024 Component Date Value Ref Range Status Cholesterol 03/04/2024 146 <200 MG/DL Final TRIGLYCERIDES 03/04/2024 103 <150 MG/DL Final HDL CHOLESTEROL 03/04/2024 32 (L) >39 MG/DL Final LDL-CHOLESTEROL 03/04/2024 94 <100 MG/DL Final Comment: NOTE: CALCULATED LDL IS BASED ON ARIADNA-AMAYA METHOD WHICH INCLUDES ADJUSTABLE TRIGLYCERIDE:VLDL CHOLESTEROL RATIO. THIS FACTOR VARIES BY MEASURED TRIGLYCERIDE AND NON-HDL CHOLESTEROL CONCENTRATIONS WITH INCREASED CALCULATED LDL SEEN IN HIGHER TRIGLYCERIDE OR LOWER NON-HDL SPECIMENS. FOR MORE INFORMATION, SEE CLIENT ANNOUNCEMENT AT [email or web address] LDL/HDL RATIO 03/04/2024 2.94 <3.55 RATIO Final Comment: Testing Performed At: [facility]: [facility], [address] [place] [id number] [address] Form: Audelia Olivera M.D., [facility] #: [id number] WHITE BLOOD CELL COUNT 03/04/2024 8.6 3.5 - 11.0 K/UL Final RED BLOOD CELL COUNT 03/04/2024 4.74 4.50 - 6.10 M/UL Final HEMOGLOBIN 03/04/2024 14.0 13.5 - 17.0 G/DL Final HEMATOCRIT 03/04/2024 43.5 40.0 - 51.0 % Final MCV 03/04/2024 91.8 80.0 - 99.0 fL Final MCH 03/04/2024 29.5 25.0 - 33.0 PG Final MCHC 03/04/2024 32.2 31.0 - 36.0 G/DL Final RDW 03/04/2024 12.0 % Final NEUTROPHILS 03/04/2024 49.5 % Final LYMPHOCYTES 03/04/2024 43.3 % Final MONOCYTES 03/04/2024 5.7 % Final EOSINOPHILS 03/04/2024 0.7 % Final BASOPHILS 03/04/2024 0.6 % Final Immature Granulocytes 03/04/2024 0.2 % Final NUCLEATED RBC 03/04/2024 0.0 0.0 /100 WBC'S Final PLATELET COUNT 03/04/2024 128 (L) 130 - 400 K/UL Final ABSOLUTE NEUTROPHILS 03/04/2024 4.26 1.50 - 7.50 K/UL Final ABSOLUTE LYMPHOCYTES 03/04/2024 3.72 1.00 - 4.00 K/UL Final ABSOLUTE MONOCYTES 03/04/2024 0.49 0.20 - 1.00 K/UL Final ABSOLUTE EOSINOPHILS 03/04/2024 0.06 0.00 - 0.50 K/UL Final ABSOLUTE BASOPHILS 03/04/2024 0.05 0.00 - 0.20 K/UL Final Immature Granulocytes 03/04/2024 0.02 0.00 - 0.10 K/UL Final ABSOLUTE NUCLEATED RBC 03/04/2024 0.00 K/UL Final Comment: Testing Performed At: [facility]: [facility], [address] [place] [address] Carpenter Form: Audelia Olivera M.D., CLIA #: [id number] GLUCOSE 03/04/2024 97 70 - 99 MG/DL Final BUN 03/04/2024 19 8 - 23 MG/DL Final CREATININE 03/04/2024 1.35 0.80 - 1.40 MG/DL Final eGFR If NonAfricn Am 03/04/2024 52 (L) >60 ML/MIN/1.73 Final Comment: The NKF-ASN Taskforce recommends use of Cystatin C to confirm eGFR in adults at risk for CKD. [facility] offers eGFR with Cystatin C-Creatinine using the 2020 CKD-EPI eGFR_creat-cystat equation (order code 3057) to increase the accuracy of estimated GFR. For more information, contact your patient accounts specialist or see announcement at [email or web address] SODIUM 03/04/2024 146 133 - 146 MEQ/L Final POTASSIUM 03/04/2024 5.0 3.5 - 5.4 MEQ/L Final CHLORIDE 03/04/2024 109 (H) 95 - 107 MEQ/L Final CARBON DIOXIDE 03/04/2024 25 19 - 31 MEQ/L Final CALCIUM 03/04/2024 11.2 (H) 8.5 - 10.5 MG/DL Final Comment: Testing Performed At: [facility]: [facility], [address] [place] [id number] Carpenter Form: Audelia Olivera M.D., CLIA #: [id number] Vitamin D, 25-Hydroxy 03/04/2024 60 SEE BELOW NG/ML Final Comment: NOTE: 25-HYDROXYVITAMIN D ASSAY INCLUDES 25-HYDROXYVITAMIN D2 AND D3. INTERPRETIVE RANGES PEDIATRIC (<17 YEARS) . . . . . . . . . . . NG/ML 20-100 ADULT: INSUFFICIENT . . . . . . . . . . . . . . NG/ML <20 SUBOPTIMAL . . . . . . . . . . . . . . . NG/ML 20-29 OPTIMAL . . . . . . . . . . . . . . . . . NG/ML 30-100 Testing Performed At: [facility]: [facility], [address] [place] [address] [address] Form: Audelia lOivera M.D., [place] #: [id number] Encounter Date: 12/28/23 ECG 12 lead Narrative Marked sinus Bradycardia BORDERLINE RHYTHM ASSESSMENT&PLAN: Patient Active Problem List Diagnosis Vertigo Benign prostatic hyperplasia with urinary hesitancy Perforation of both tympanic membranes Syncope Alfred Dodge is a 83 year male with history of benign prostatic hyperplasia, mild thrombocytopenia, borderline A1c, HTN, that was graciously referred by Dr. Benjamin for sinus bradycardia evaluation and consideration for ILR implant. The patient reports episodes of dizziness and frequent falls, but this has not been clearly relatedto episodes of bradycardia. Cardiac Evaluation 2023 TTE: LV normal size and function EF 60-64%, concentric remodeling, RV normal, trace AI, RVSP <35mmHg, borderline aortic root 3.9cm, no pericardial effusion December 2023 EKG: sinus bradycardia at 44bpm, first degree AV delay December 2023 Nuc stress: normal ETT, normal MPI (small mild inferior/apical artifact), normal EF January 2024 14d amb monitor: sinus bradycardia, HR 34-130bpm, mean rate 57bpm, frequent APCs/AT runs,occ PVCs/couplets, one 3 beats run of VT at 133bpm During stress test he reached heart rates up to 140 bpm with exercise. Given the baseline bradycardia, tiredness, episodes of dizziness and frequent falls, we discussed that he would benefit from closer heart rhythm monitoring. We discussed risks and benefits of ILR implant. The patient agrees to proceed. PLAN: ILR implant at [place] with local anesthesia with Gr Jeferson Kirill, MD Cardiac Electrophysiology documented in this encounter Miscellaneous Notes * Addendum Note - Tish Bhagat MA - 03/30/2024 9:00 AM CDTAddended by: TISH BHAGAT on: 03/31/2024 09:25 AM Modules accepted: Orders documented in this encounter Plan of Treatment Upcoming Encounters Date Type Department Care Team (Late st Contact Info) Description 09/05/2024 11:20 AM SECURITY SOLUTIONS ENGINEER Office Visit [facility] [place] [address] [phone] Macario Benjamin MD [address] [address] 09/08/2024 2:00 PM SECURITY SOLUTIONS ENGINEER Office Visit [facility] ? [place] [address] [phone] Omaira Bailey MD [address] [address] 09/13/2024 1:20 PM SECURITY SOLUTIONS ENGINEER Office Visit [facility] ? [place] [address] [address] [place] [address] [place] [address] [place] [address] documented as of this encounter Procedures Procedure Name Priority Date/Time Associated Diagnosis Comments ECG 12-LEAD Routine 03/30/2024 9:02 AM CDT Hx of cardiac arrhythmia documented in this encounter Results * ECG 12 lead (03/30/2024 9:02 AM CDT) Narrative Jeferson Davies MD - 03/30/2024 9:02 AM CDT Sinus Bradycardia at 45 bpm, normal OR, narrow QRS, normal QTc Jeferson Umana MD ECG ORDERABLES More l Result documented in this encounter Visit Diagnoses Diagnosis Hx of cardiac arrhythmia- Primary documented in this encounter Additional Health Concerns Assessment Noted Time PHQ-9 Depression Total Score: 3 03/03/20 24 1:26 PM CDT documented as of this encounter Care Teams Acquisitions Editor Relationship Specialty Start Date End Date Omaira Bailey MD [address] [place] [address], [place] [address] PCP - General Geriatric Medicine 06/28/23 documented as of this encounter
--- OUTSIDE RECORDS SUMMARY | 2024-07-29 18:39 | XMS_ITS | Encounter Summary ---
Author Organization [facility] Address [address] [place] [address] Care Team Providers Care Medical Detail Representative Name Role Phone Omaira Bailey MD Primary Care Provider Reason for Visit * Reason Comments Follow-up Encounter Details Date Type Department Care Team (Late st Contact Info) Description 03/03/2024 1:30 PM CDT Office Visit [facility] ? [place] [address] [facility] [address] [phone] Omaira Bailey MD [address] [facility] [address] [place], [place] [id number] Postural dizziness with presyncope (Primary Dx); Primary hypertension; Benign localized prostatic hyperplasia without lower urinary tract symptoms (LUTS); Perforation of both tympanic membranes; Vitamin D deficiency; Impaired fasting glucose; Hypercalcemia; Thrombocytopenia ([facility]/HCC) Social History Tobacco Use Types Packs/Day Years [...] Sex Assigned at Male 09/18/2023 1:29 PM HEEL EMERY BUFFER Legal Sex Male 12:25 PM CDT Gender Identity Male 09/18/2023 1:29 PM HEEL EMERY BUFFER Sexual Orientation Straight 09/18/2023 1: 29 PM HEEL EMERY BUFFER documented as of this encounter Last Filed Vital Signs Vital Sign Reading Time Taken Comments Blood Pressure 128/71 03/03/2024 1:24 PM CDT Pulse 63 03/03/2024 1:24 PM CDT Temperature 36.5 ??C (97.7 ??F) 03/03/2024 1:20 PM C DT Respiratory Rate - - Oxygen Saturation - - Inhaled Oxygen Concentration - - Weight 86.3 kg (190 lb 3.2 oz) 03/03/2024 1:20 P M CDT Height - - Body Mass Index 27.29 03/02/2024 10:49 AM CDT documented in this encounter Functional Status * Over the past 2 weeks, how often have you been bothered by any of the following problems? Question Answer Date of Assessment Author Patient Health Questionnaire-2 Score 0 03/2024 1:26 PM CDT Tor Shaw MA * Question Answer Date of Assessment Author Little interest or pleasure in doing things Not at all 03/03/2024 1:26 PM CDT Tor Shaw MA Feeling down, depressed, or hopeless Not at all 03/03/2024 1:26 PM CDT Tor Shaw MA Trouble falling or staying asleep, or sleeping too much Nearly every day 03/03/2024 1:26 PM CDT Tor Shaw MA Feeling tired or having little energy Not at all 03/03/2024 1:26 PM CDT Tor Shaw MA Poor appetite or overeating Not at all 03/03/2024 1: 26 PM CDT Tor Shaw MA Feeling bad about yourself - or that you are a failure or have let yourself or your family down Not at all 03/03/2024 1:26 PM CDT Tor Shaw MA Trouble concentrating on things, such as reading the newspaper or watching television Not at all 03/03/2024 1:26 PM CDT Tor Shaw MA Moving or speaking so slowly that other people could have noticed? Or the opposite - being so fidgety or restless that you have been moving around a lot more than usual. Not at all 03/03/2024 1:26 PM CDT Tro Shaw MA Thoughts that you would be better off or hurting yourself in some way Not at all 03/03/2024 1:26 PM CDT Tor Shaw MA Patient Health Questionnaire-9 Score 3 03/03/2024 1:26 PM CDT Tor Shaw MA documented as of this encounter Patient Instructions * Patient Instructions* Omaria Bailey MD - 03/03/2024 1:30 PM CDT It was a pleasure to see you today. I'm delighted that you have taken on your new diet and your weight loss journey. Please continue to watch you fluid intake and avoid dehydration and low blood sugar. I would also encourage you to walk more to develop an exercise routine. Please go by the lab to check some additional blood work. I will call you to go over your results. I understand you are not eager to have the colonoscopy but I would encourage you to consider getting one in the future given the prior test. Please also make the appointment with the EP office services specialist to complete the heart rate assessment We will see you back in 4 months documented in this encounter Plan of Treatment Upcoming Encounters Date Type Department Care Team (Late st Contact Info) Description 09/05/2024 11:20 AM HEEL EMERY BUFFER Office Visit [facility] ? [place] [address] [place] [address] [phone] Macario Benjamin MD [address] [address] 09/08/2024 2:00 PM HEEL EMERY BUFFER Office Visit [facility] ? [place] [address] [place] [phone] Omaira Bailey MD [address] [facility] [address] [place] [phone] 09/13/2024 1:20 PM HEEL EMERY BUFFER Office Visit [facility] ? [place] [address] [place] [address] [place] [address] [place] [address] documented as of this encounter Procedures Procedure Name Priority Date/Time Associated Diagnosis Comments PTH, INTACT Routine 03/08/2024 1:24 PM CDT Hypercalcemia CALCIUM, IONIZED Routine 03/08/2024 1:24 PM CDT Hypercalcemia documented in this encounter Results * (ABNORMAL) PTH, intact (03/08/2024 1:24 PM CDT) PARATHYROID HORMONE, INTACT 150(H) 16 - 77 pg/mL [facility] Comment: Interpretive Guide ?Intact PTH ? Calcium ? ------- Normal Parathyroid ?Normal ? Normal Hypoparathyroidism ?Low or Low Normal ?Low Hyperparathyroidism ?? Primary ?Normal or High ? High ?? Secondary ?High ? Normal or Low ?? Tertiary ? High ? High Non-Parathyroid ?? Hypercalcemia ?Low or Low Normal ?High REPORT COMMENT: FASTING:NO Blood (Blood) 03/08/2024 1:2 4 PM CDT 03/08/2024 1:24 PM CDT Narrative Resulting Agency Comment Performing Organization Information: ?Site ID: [id number] ?Name: [facility] ?Address: [address] [place] [address] ?Director: CELSO MITTAL M.D. us Omaira Bailey MD LAB BLOOD ORDERABLES Final Resul t Performing Organization Address [facility] de Phone Number [facility] * (ABNORMAL) Calcium, ionized (03/08/2024 1:24 PM CDT) CALCIUM, IONIZED 5.7(H) 4.7 - 5.5 mg/dL [facility] Comment: REPORT COMMENT: FASTING:NO Blood (Blood) 03/08/2024 1:2 4 PM CDT 03/08/2024 1:24 PM CDT Narrative Resulting Agency Comment Performing Organization Information: ?Site ID: [facility] ?Name: [facility] ?Address: [address] [place] [address] ?Director: CELSO MITTAL M.D. us Omaira Bailey MD LAB BLOOD ORDERABLES Final Resul t Performing Organization Address [facility] de Phone Number [facility] documented in this encounter Visit Diagnoses Diagnosis Postural dizziness with presyncope- Primary Primary hypertension Unspecified essential hypertension Benign localized prostatic hyperplasia without lower urinary tract symptoms (LUTS) Perforation of both tympanic membranes Vitamin D deficiency Impaired fasting glucose Hypercalcemia Thrombocytopenia (CMS/HCC) Unspecified thrombocytopenia documented in this encounter Additional Health Concerns Assessment Noted Time PHQ-9 Depression Total Score: 3 03/03/20 24 1:26 PM CDT documented as of this encounter Care Teams Medical Detail Representative Relationship Specialty Start Date End Date Omaira Bailey MD [address] [place] [address] PCP - General Geriatric Medicine 06/28/23 documented as of this encounter
--- OUTSIDE RECORDS SUMMARY | 2024-07-29 18:39 | XMS_ITS | Encounter Summary ---
Author Organization [facility] Address [address] [place] [address] Care Team Providers Care Printed Circuit Boards Solder Leveler Name Role Phone Omaira Bailey MD Primary Care Provider [phone] Reason for Visit * Reason Comments Follow-up Encounter Details Date Type Department Care Team (Late st Contact Info) Description 05/26/2024 2:00 PM CDT Office Visit [facility] ? [place] [address] [facility] [address] [phone] Omaira Bailey MD [address] [facility] [address] [place], [place] [phone] Benign prostatic hyperplasia with urinary hesitancy (Primary Dx); Syncope, unspecified syncope type; Hypercalcemia; Kidney stones; Primary hypertension; Mixed hyperlipidemia; Thrombocytopenia ([facility]/HCC) Social History Tobacco Use Types Packs/Day [...] Sex Assigned at Male 09/18/2023 1:29 PM AUTO SERVICE ADVISOR Legal Sex Male 12:25 PM CDT Gender Identity Male 09/18/2023 1:29 PM AUTO SERVICE ADVISOR Sexual Orientation Straight 09/18/2023 1: 29 PM AUTO SERVICE ADVISOR documented as of this encounter Last Filed Vital Signs Vital Sign Reading Time Taken Comments Blood Pressure 165/74 05/26/2024 2:15 PM CDT Pulse 44 05/26/2024 2:15 PM CDT Temperature 36.5 ??C (97.7 ??F) 05/26/2024 2:15 PM CD T Respiratory Rate - - Oxygen Saturation 100% 05/26/2024 2:15 PM CDT Inhaled Oxygen Concentration - - Weight 85.6 kg (188 lb 12.8 oz) 05/26/2024 2:15 PM CDT Height - - Body Mass Index 27.09 05/04/2024 10:57 PM CDT documented in this encounter Patient Instructions * Patient Instructions* Omaira Bailey MD - 05/26/2024 2:00 PM CDT It was a pleasure to see you today. Please see the state historical society director next week to discuss your calcium and parathyroid hormone levels. Make sure you mention your kidney stones as well. They will discuss further evaluation and treatment Please follow up with the news gathering technician and document any dizziness or fainting spells you maybe having. Regarding a second opinion for the Urologist. The [facility] a location in [facility]: , [address] [facility] [address], [place] [address] I will have you follow-up in 3 months. documented in this encounter Plan of Treatment Upcoming Encounters Date Type Department Care Team (Late st Contact Info) Description 09/05/2024 11:20 AM AUTO SERVICE ADVISOR Office Visit [facility] ? [facility] [address] [facility] [address] [phone] Macario Benjamin MD [address] [facility] [address] [address] 09/08/2024 2:00 PM AUTO SERVICE ADVISOR Office Visit [facility] ? [place] [address] [phone] Omaira Bailey MD [address] [facility] [address] [address] 09/13/2024 1:20 PM AUTO SERVICE ADVISOR Office Visit [facility] ? [place] [address] [place] [address] [place] [address] [place] [address] documented as of this encounter Visit Diagnoses Diagnosis Benign prostatic hyperplasia with urinary hesitancy- Primary Syncope, unspecified syncope type Hypercalcemia Kidney stones Calculus of kidney Primary hypertension Unspecified essential hypertension Mixed hyperlipidemia Thrombocytopenia (CMS/HCC) Unspecified thrombocytopenia documented in this encounter Additional Health Concerns Assessment Noted Time PHQ-9 Depression Total Score: 3 03/03/20 24 1:26 PM CDT documented as of this encounter Care Teams Printed Circuit Boards Solder Leveler Relationship Specialty Start Date End Date Omaira Bailey MD [address] [facility] [address] [address] PCP - General Geriatric Medicine 06/28/23 documented as of this encounter
--- OUTSIDE RECORDS SUMMARY | 2024-07-29 18:39 | XMS_ITS | Encounter Summary ---
Author Organization [facility] Address [address] [place] [address] Care Team Providers Care Beverage Specialist Name Role Phone Omaira Bailey MD Primary Care Provider [phone] Encounter Details Date Type Department Care Team (Latest Contact Info) Description 12/28/2023 Travel Social History Tobacco Use Types Packs/Day Years Used Date Smoking Tobacco: Never Passive Smoke Exposure: Past Smokeless Tobacco: Never Passive Exposure Comments:Pa rents smoked Alcohol Use Standard Drinks/Week Comments Yes 1 (1 standard drink = 0.6 oz pur e alcohol) Sex and Gender Information Value Date Recorded Sex Assigned at Male 09/18/2023 1:29 PM BRASSWIND INSTRUMENT REPAIRER Legal Sex Male 12:25 PM CDT Gender Identity Male 09/18/2023 1:29 PM BRASSWIND INSTRUMENT REPAIRER Sexual Orientation Straight 09/18/2023 1: 29 PM BRASSWIND INSTRUMENT REPAIRER documented as of this encounter Plan of Treatment Upcoming Encounters Date Type Department Care Team (Late st Contact Info) Description 09/05/2024 11:20 AM BRASSWIND INSTRUMENT REPAIRER Office Visit [place] [facility] ? [place] [address] [place] [phone] Macario Benjamin MD [address] [place] [phone] 09/08/2024 2:00 PM BRASSWIND INSTRUMENT REPAIRER Office Visit [facility] ? [place] [address] [place] [phone] Omaira Bailey MD [address] [facility] [address] [place], [place] [address] 09/13/2024 1:20 PM BRASSWIND INSTRUMENT REPAIRER Office Visit [facility] ? [place] [address] [place] [address] [place] [address] [facility] [place] [address] documented as of this encounter Visit Diagnoses Not on filedocumented in this encounter Care Teams Beverage Specialist Relationship Specialty Start Date End Date Omaira Bailey MD [address] [facility] [address] [place], [place] [address] PCP - General Geriatric Medicine 06/28/23 documented as of this encounter
--- OUTSIDE RECORDS SUMMARY | 2024-07-29 18:39 | XMS_ITS | Encounter Summary ---
Author Organization [facility] Address [address] [place] [address] Care Team Providers Care Inside Sales Advertising Executive Name Role Phone Omaira Bailey MD Primary Care Provider [phone] Encounter Details Date Type Department Care Team (Latest Contact Info) Description 01/12/2024 Travel Social History Tobacco Use Types Packs/Day Years Used Date Smoking Tobacco: Never Passive Smoke Exposure: Past Smokeless Tobacco: Never Passive Exposure Comments:Pa rents smoked Alcohol Use Standard Drinks/Week Comments Yes 1 (1 standard drink = 0.6 oz pur e alcohol) Sex and Gender Information Value Date Recorded Sex Assigned at Male 09/18/2023 1:29 PM WELFARE ELIGIBILITY INTERVIEWER Legal Sex Male 12:25 PM CDT Gender Identity Male 09/18/2023 1:29 PM WELFARE ELIGIBILITY INTERVIEWER Sexual Orientation Straight 09/18/2023 1: 29 PM WELFARE ELIGIBILITY INTERVIEWER documented as of this encounter Plan of Treatment Upcoming Encounters Date Type Department Care Team (Late st Contact Info) Description 09/05/2024 11:20 AM WELFARE ELIGIBILITY INTERVIEWER Office Visit [place] [facility] ? [place] [address] [place] [phone] Macario Benjamin MD [address] [place] [address] 09/08/2024 2:00 PM WELFARE ELIGIBILITY INTERVIEWER Office Visit [place] [facility] ? [place] [address] [place] [phone] Omaira Bailey MD [address] [facility] [address] [place], [place] [address] 09/13/2024 1:20 PM WELFARE ELIGIBILITY INTERVIEWER Office Visit [facility] ? [place] [address] [employer] [place] [address] [place] [address] [address] [facility] [place] [address] documented as of this encounter Visit Diagnoses Not on filedocumented in this encounter Care Teams Inside Sales Advertising Executive Relationship Specialty Start Date End Date Omaira Bailey MD [address] [facility] [address] [place], [place] [address] PCP - General Geriatric Medicine 06/28/23 documented as of this encounter
--- OUTSIDE RECORDS SUMMARY | 2024-07-29 18:39 | XMS_ITS | Encounter Summary ---
Author Organization [facility] Address [address] [place] [address] Care Team Providers Care Cook Fish Eggs Name Role Phone Omaira Bailey MD Primary Care Provider [phone] Encounter Details Date Type Department Care Team (Latest Contact Info) Description 09/17/2023 Travel Social History Tobacco Use Types Packs/Day Years Used Date Smoking Tobacco: Never Assessed Sex and Gender Information Value Date Recorded Sex Assigned at Male 09/18/2023 1:29 PM COMPANY MINER BLASTING Legal Sex Male 12:25 PM CDT Gender Identity Male 09/18/2023 1:29 PM COMPANY MINER BLASTING Sexual Orientation Straight 09/18/2023 1: 29 PM COMPANY MINER BLASTING documented as of this encounter Plan of Treatment Upcoming Encounters Date Type Department Care Team (Late st Contact Info) Description 09/05/2024 11:20 AM COMPANY MINER BLASTING Office Visit [place] [facility] ? [place] [address] [facility] [place] [phone] Macario Benjamin MD [address] [place], [place] [phone] 09/08/2024 2:00 PM COMPANY MINER BLASTING Office Visit [facility] ? [place] [address] [phone] Omaira Bailey MD [address] [place] [phone] 09/13/2024 1:20 PM COMPANY MINER BLASTING Office Visit [facility] ? [place] [address] [place] [address] [place] [address] [facility] [place] [address] documented as of this encounter Visit Diagnoses Not on filedocumented in this encounter Care Teams Cook Fish Eggs Relationship Specialty Start Date End Date Omaira Bailey MD [address] [facility] [address] [place], [place] [phone] PCP - General Geriatric Medicine 06/28/23 documented as of this encounter
--- OUTSIDE RECORDS SUMMARY | 2024-07-29 18:39 | XMS_ITS | Encounter Summary ---
Author Organization [facility] Address [address] [place] [address] Care Team Providers Care Scrum Project Manager Name Role Phone Omaira Bailey MD Primary Care Provider [phone] Reason for Referral * Consultation (Routine) - Closed Specialty Diagnoses / Procedures Referred By Contac t Referred To Contact Cardiology Diagnoses Syncope, unspecified syncope type Bradycardia Macario Benjamin MD Phone: tel: fax: [facility] [place] [facility] [address] [place] [address] [address] [address] Phone: tel: fax: Referral ID Status Reason Start Date Expiration Date V isits Requested Visits Authorized [id number] Closed Specialty Services Required 12/28/2023 06/25/2024 1 1 * Electrophysiology (Routine) - Closed Specialty Diagnoses / Procedures Referred By Contac t Referred To Contact Cardiology Diagnoses Bradycardia Procedures Cardiac event monitor Macario Benjamin MD Phone: tel: fax: Referral ID Status Reason Start Date Expiration Date Visits Re quested Visits Authorized [id number] Closed 12/28/2023 06/25/2024 1 1 Reason for Visit * Reason Comments Establish Care Vertigo Results ekg Encounter Details Date Type Department Care Team (Late st Contact Info) Description 12/28/2023 10:20 AM CDT Office Visit [facility] ? [place] [facility] [address] [facility] [address] [address] Macario Benjamin MD [address] [facility] [address] [address] Bradycardia (Primary Dx); Vertigo; Syncope, unspecified syncope type; Abnormal EKG Social History Tobacco Use Types Packs/Day Years Used Date Smoking Tobacco: Never Passive Smoke Exposure: Past Smokeless Tobacco: Never Tobacco Cessation:Counseling Given: Not Answered Passive Exposure Comments:Parents smoked Alcohol Use Standard Drinks/Week Comments Yes 1 (1 standard drink = 0.6 oz pur e alcohol) Sex and Gender Information Value Date Recorded Sex Assigned at Male 09/18/2023 1:29 PM EATING DISORDER PSYCHOLOGIST Legal Sex Male 12:25 PM CDT Gender Identity Male 09/18/2023 1:29 PM EATING DISORDER PSYCHOLOGIST Sexual Orientation Straight 09/18/2023 1: 29 PM EATING DISORDER PSYCHOLOGIST documented as of this encounter Last Filed Vital Signs Vital Sign Reading Time Taken Comments Blood Pressure 148/71 12/28/2023 10:43 AM CDT Pulse 43 12/28/2023 10:43 AM CDT Temperature - - Respiratory Rate - - Oxygen Saturation - - Inhaled Oxygen Concentration - - Weight 90.7 kg (200 lb) 12/28/2023 10:43 AM CDT Height 177.8 cm (5' 10 ) 12/28/2023 10:43 AM CDT Body Mass Index 28.7 12/28/2023 10:43 AM CDT documented in this encounter Progress Notes * Macario Benjamin MD - 12/28/2023 10:20 AM CDT 12/28/2023 Visit Type: New patient Referring Provider: Dr. Omaira Bailey Primary Care Provider: Dr. Omaira Bailey Reason for Referral: falls HISTORY OF PRESENT ILLNESS: Alfred Dodge is a 83 y.o. male with BPH, ear problems, vertigo who is referred for falls and abnormal EKG. Has had falls where he just fell. Couple of episodes, not recent - last episode 1-2 yrs ago. No LOC Can't remember if was dizzy with the episodes but does have vertigo - if lays flat on back and getsback up it usually triggers it Years ago had severe episode. 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 No past surgical history on file. Current Outpatient Medications Medication Sig Dispense Refill alfuzosin (Uroxatral) 10 MG 24 hr tablet Take 20 mg by mouth 1 (one) time each day. finasteride (Proscar) 5 MG tablet Take 5 mg by mouth 1 (one) time each day. amoxicillin-clavulanate (Augmentin) 875-125 MG tablet Take 1 tablet by mouth in the morning and 1 tablet in the evening. (Patient not taking: Reported on 12/28/2023) ofloxacin (Floxin) 0.3 % otic solution 4 drops in the morning and 4 drops in the evening. (Patient not taking: Reported on 12/28/2023) No current facility-administered medications for this visit. ALL: Ciprofloxacin and Indomethacin No family history on file. Social History Tobacco Use Smoking status: Never Passive exposure: Past (Parents smoked) Smokeless tobacco: Never Substance Use Topics Alcohol use: Yes Alcohol/week: 1.0 standard drink of alcohol Types: 1 Glasses of wine per week Drug use: Never Review of Systems Constitutional: Negative for chills and fever. Respiratory: Negative for chest tightness and shortness of breath. Cardiovascular: Negative for chest pain, palpitations and leg swelling. Gastrointestinal: Negative for nausea and vomiting. Neurological: Negative for syncope and light-headedness. Physical Exam HENT: Head: Atraumatic. Eyes: Extraocular Movements: Extraocular movements intact. Cardiovascular: Rate and Rhythm: Regular rhythm. Bradycardia present. Heart sounds: Normal heart sounds. Pulmonary: Effort: Pulmonary effort is normal. Breath sounds: Normal breath sounds. No wheezing or rales. Abdominal: Palpations: Abdomen is soft. Tenderness: There is no abdominal tenderness. Musculoskeletal: Right lower leg: No edema. Left lower leg: No edema. Skin: General: Skin is warm and dry. Neurological: Mental Status: He is alert. Mental status is at baseline. Psychiatric: Mood and Affect: Mood normal. Lab Results Component Value Date WBC 15.9 (H) 09/17/2023 HGB 14.1 09/17/2023 HCT 43.3 09/17/2023 MCV 90.2 09/17/2023 PLT 151 09/17/2023 Lab Results Component Value Date GLUCOSE 83 09/17/2023 CALCIUM 10.6 (H) 09/17/2023 NA 141 09/17/2023 K 5.0 09/17/2023 CO2 24 09/17/2023 CL 105 09/17/2023 BUN 19 09/17/2023 CREATININE 1.29 09/17/2023 Lab Results Component Value Date CHOL 164 09/17/2023 Lab Results Component Value Date HDL 34 (L) 09/17/2023 Lab Results Component Value Date LDL 99 09/17/2023 Lab Results Component Value Date TRIG 190 (H) 09/17/2023 No components found for: CHOLHDL Lab Results Component Value Date HGBA1C 5.7 (H) 09/17/2023 TTE: LV normal size and function EF 60-64%, concentric remodeling, RV normal, trace AI, RVSP <35mmHg, borderline aortic root 3.9cm, no pericardial effusion ASSESSMENT/PLAN: Alfred Dodge is a 83 y.o. male with BPH, ear problems, vertigo who is referred for falls and abnormal EKG. #EKG today: marked sinus bradycardia at 44bpm, 1avb #Bradycardia: -sinus bradycardia on EKG, pt denies current symptoms -does have falls history but last episode 1-2 yrs ago and unclear if any symptoms surrounding thoseevents - he denies LOC -given sig bradycardia, would check 2 week event monitor to assess HR trends -would check exercise nuc stress - he says he is able to walk on treadmill - to assess chronotropiccompetence and r/o ischemia -will refer to EP to see if would be ILR candidate if current work-up negative; PPM discussed but as no current symptoms will get work-up above as planned -while talking during visit and getting out of exam chair HR increased to 50s - he remained asymptomatic -echo unremarkable, aortic root borderline but within 2sd based on bsa -avoid inderjit blockers -advised if any symptoms of lh/dizzy/syncope to seek immediate care #Elevated BP: -normal at prior visits -- will see if he can get a BP recheck with his wood pile driver operator -echo showed concentric remodeling so may have HTN but only noted elevated BP on single visit today #LDL at goal on recent labs, TG mildly elevated but he has started making dietary changes with intentional weight loss #Follow-up 1 month or sooner as needed Diagnosis & Orders: ICD-10-CM 1. Vertigo R42 2. Syncope, unspecified syncope type R55 3. Abnormal EKG R94.31 4. Bradycardia R00.1 Education/ Counseling: follow up visit Macario Benjamin MD 10:51 AM documented in this encounter Plan of Treatment Upcoming Encounters Date Type Department Care Team (Late st Contact Info) Description 09/05/2024 11:20 AM EATING DISORDER PSYCHOLOGIST Office Visit [facility] ? [place] [facility] [address] [phone] Macario Benjamin MD [address] [place], [place] [phone] 09/08/2024 2:00 PM EATING DISORDER PSYCHOLOGIST Office Visit [facility] ? [place] [facility] [address] [phone] Omaira Bailey MD [address] [place], [place] [address] 09/13/2024 1:20 PM EATING DISORDER PSYCHOLOGIST Office Visit [facility] ? [place] [address] [place] [address] [place] [address] [address] [place] [address] Scheduled Orders Name Type Priority Associated Diagnoses Orde r Schedule Cardiac event monitor Cardiac Services Routine Bradycardia Expected: 12/28/2023, Expires: 12/27/2025 Scheduled Referrals Name Type Priority Associated Diagnoses Order Schedule Ambulatory referral to Cardiac Electrophysiology Outpatient Referral Routine Syncope, unspecified syncope type Bradycardia Expected: 12/28/2023, Expires: 12/27/2024 documented as of this encounter Procedures Procedure Name Priority Date/Time Associated Diagnosis Comments ECG 12-LEAD Routine 12/28/2023 12:04 PM CDT Vertigo Syncope, unspecified syncope type documented in this encounter Results * NM Myocardial Perfusion Spect Rest and Stress (multiple) (01/12/2024 11:44 AM CDT) Anatomical Region Laterality Modality Body N/A Nuclear Medicine Narrative 01/12/2024 3:17 PM CDT Table formatting from the original result was not included. Body mass index is 28.7 kg/m??. ? EXERCISE STRESS ECG RESULTS: The patient was stressed by continuous graded treadmill testing for 4:45 minutes to stage 2 of the Ishmael protocol. RPE at this stage was reported as 18. Maximum workload attained was 5.90 METs. Peak pressure-rate product was 23,829. ??No cardiac symptoms were reported during stress or recovery. Exercise was ended because of fatigue. ??The patient's effort was considered to be satisfactory. The heart rate johnnie from 48 beats/min at rest to a maximum of 141 beats/min during exercise, which is 102% of the predicted maximum. ??This heart rate response is adequate for the level of work performed. The post recovery rate was normal. The blood pressure johnnie from 137/74 mmHg at rest to 169/63 mmHg during stress. ??This response is normal for the level of work performed. The resting ECG showed marked sinus bradycardia. No significant ST or T-wave changes were noted with stress; of note, there is significant motion artifact. Occasional PAC's occurred after 4:46 minutes of exercise and persisted into the recovery period, with an isolated 4-beat atrial run. MYOCARDIAL PERFUSION IMAGING RESULTS: A left arm antecubital venous access was placed. Supine myocardial perfusion single photon emission computed tomographic (SPECT) imaging was performed approximately 80 minutes after intravenous injection of 11.2 mCi 99Tc-MIBI at rest. Subsequently, gated SPECT imaging was performed approximately 30 minutes after intravenous injection of 33.0 mCi 99Tc-MIBI at peak exercise. Both sets of images show small, mild, predominant fixed, inferior and apical perfusion defects that contracts well and normalizes in systole. CONCLUSIONS: 1. The overall quality of the study is good. Liver attenuation. 2. Normal ??hemodynamic exercise test. 3. Normal ECG exercise test. 4. Normal exercise 99mTc-Sestamibi study show small, mild, inferior and apical attenuation artifact. 5. Gated perfusion images show normal left ventricular function and wall motion with an ejection fraction of >70%. pn Macario Benjamin MD IMG NM PROCEDURES Final Result * ECG 12 lead (12/28/2023 12:04 PM CDT) Narrative Macario Benjamin MD - 12/28/2023 12:04 PM CDT Marked sinus Bradycardia BORDERLINE RHYTHM Macario Benjamin MD ECG ORDERABLES Final Result documented in this encounter Visit Diagnoses Diagnosis Bradycardia- Primary Other specified cardiac dysrhythmias Vertigo Dizziness and giddiness Syncope, unspecified syncope type Abnormal EKG Nonspecific abnormal electrocardiogram (ECG) (EKG) Syncope- Primary Syncope and collapse Abnormal EKG Nonspecific abnormal electrocardiogram (ECG) (EKG) Vertigo Dizziness and giddiness documented in this encounter Care Teams Scrum Project Manager Relationship Specialty Start Date End Date Omaira Bailey MD [address] [place] [address] [address] [address] PCP - General Geriatric Medicine 06/28/23 documented as of this encounter
--- OUTSIDE RECORDS SUMMARY | 2024-07-29 18:39 | XMS_ITS | Encounter Summary ---
[facility] Organization [facility] Address [address] [place] [address] Care Team Providers Care Vine Pruner Name Role Phone Omaira Bailey MD Primary Care Provider [phone] Reason for Visit * Electrophysiology (Routine) - Closed Specialty Diagnoses / Procedures Referred By Missael jaimes Referred To Contact Cardiology Diagnoses Vertigo Procedures Holter monitor - 7-15 days Macario Benjamin MD Phone: tel: fax: Referral ID Status Reason Start Date Expiration Date Visits Re quested Visits Authorized [id number] Closed 12/28/2023 06/25/2024 1 1 Encounter Details Date Type Department Care Team (Late st Contact Info) Description 12/28/2023 3:30 PM CDT Ancillary Procedure [facility] ? [facility] [address] [facility] [address] [phone] Vertigo Social History Tobacco Use Types Packs/Day Years Used Date Smoking Tobacco: Never Passive Smoke Exposure: Past Smokeless Tobacco: Never Passive Exposure Comments:Pa rents smoked Alcohol Use Standard Drinks/Week Comments Yes 1 (1 standard drink = 0.6 oz pur e alcohol) Sex and Gender Information Value Date Recorded Sex Assigned at Male 09/18/2023 1:29 PM CLAIM SERVICE REPRESENTATIVE Legal Sex Male 12:25 PM CDT Gender Identity Male 09/18/2023 1:29 PM CLAIM SERVICE REPRESENTATIVE Sexual Orientation Straight 09/18/2023 1: 29 PM CLAIM SERVICE REPRESENTATIVE documented as of this encounter Plan of Treatment Upcoming Encounters Date Type Department Care Team (Late st Contact Info) Description 09/05/2024 11:20 AM CLAIM SERVICE REPRESENTATIVE Office Visit [facility] ? [place] [facility] [address] [phone] Macario Benjamin MD [address] [place], [place] [address] 09/08/2024 2:00 PM CLAIM SERVICE REPRESENTATIVE Office Visit [facility] ? [place] [facility] [address] [address] Omaira Bailey MD [address] [place], [place] [phone] 09/13/2024 1:20 PM CLAIM SERVICE REPRESENTATIVE Office Visit [facility] ? [place] [address] [place] [address] [place] [address] [place] [address] documented as of this encounter Procedures Procedure Name Priority Date/Time Associated Diagnosis Comments HOLTER MONITOR - 7-15 DAYS Routine 12/28/2023 4:40 PM CDT Vertigo documented in this encounter Results * Holter monitor - 7-15 days (12/28/2023 4:40 PM CDT) BSA 2.12 m2 Macario Benjamin MD CV CARDIAC SERVICES PROCEDURES Final Result documented in this encounter Visit Diagnoses Diagnosis Vertigo Dizziness and giddiness documented in this encounter Care Teams Vine Pruner Relationship Specialty Start Date End Date Omaira Bailey MD [address] [place] [address] PCP - General Geriatric Medicine 06/28/23 documented as of this encounter
--- OUTSIDE RECORDS SUMMARY | 2024-07-29 18:39 | XMS_ITS | Encounter Summary ---
Author Organization [facility] Address [address] [place] [address] Care Team Providers Care Environmental Remediation Engineer Name Role Phone Omaira Bailey MD Primary Care Provider [phone] Encounter Details Date Type Department Care Team (Latest Contact Info) Description 05/26/2024 Travel Social History Tobacco Use Types Packs/Day [...] Sex Assigned at Male 09/18/2023 1:29 PM CORK MOLDER Legal Sex Male 12:25 PM CDT Gender Identity Male 09/18/2023 1:29 PM CORK MOLDER Sexual Orientation Straight 09/18/2023 1: 29 PM CORK MOLDER documented as of this encounter Plan of Treatment Upcoming Encounters Date Type Department Care Team (Late st Contact Info) Description 09/05/2024 11:20 AM CORK MOLDER Office Visit [facility] ? [place] [facility] [address] [facility] [address] [place] [phone] Macario Benjamin MD [address] [address] 09/08/2024 2:00 PM CORK MOLDER Office Visit [facility] ? [place] [facility] [address] [phone] Omaira Bailey MD [address] [address] 09/13/2024 1:20 PM CORK MOLDER Office Visit [facility] ? [place] [address] [place] [address] [place] [address] [place] [address] documented as of this encounter Visit Diagnoses Not on filedocumented in this encounter Additional Health Concerns Assessment Noted Time PHQ-9 Depression Total Score: 3 03/03/20 24 1:26 PM CDT documented as of this encounter Care Teams Environmental Remediation Engineer Relationship Specialty Start Date End Date Omaira Bailey MD [address] [facility] [address] [place], [place] [address] PCP - General Geriatric Medicine 06/28/23 documented as of this encounter
--- OUTSIDE RECORDS SUMMARY | 2024-07-29 18:39 | XMS_ITS | Encounter Summary ---
Author Organization [facility] Address [address] [place] [address] Care Team Providers Care Systems Test Technician Name Role Phone Omaira Bailey MD Primary Care Provider Encounter Details Date Type Department Care Team (Latest Contact Info) Description 12/26/2023 Travel Social History Tobacco Use Types Packs/Day Years Used Date Smoking Tobacco: Never Assessed Sex and Gender Information Value Date Recorded Sex Assigned at Male 09/18/2023 1:29 PM COMB TENDER Legal Sex Male 12:25 PM CDT Gender Identity Male 09/18/2023 1:29 PM COMB TENDER Sexual Orientation Straight 09/18/2023 1: 29 PM COMB TENDER documented as of this encounter Plan of Treatment Upcoming Encounters Date Type Department Care Team (Late st Contact Info) Description 09/05/2024 11:20 AM COMB TENDER [facility] Visit [facility] ? [place] [facility] [address] [facility] [place] [phone] Macario Benjamin MD [address] [place], [place] [phone] 09/08/2024 2:00 PM COMB TENDER Office Visit [facility] ? [place] [address] [phone] Omaira Bailey MD [address] [place], [place] [phone] 09/13/2024 1:20 PM COMB TENDER [facility] Visit [facility] ? [place] [address] [place] [address] [place] [address] [facility] [place] [address] documented as of this encounter Visit Diagnoses Not on filedocumented in this encounter Care Teams Systems Test Technician Relationship Specialty Start Date End Date Omaira Bailey MD [address] [facility] [address] [place], [place] [phone] PCP - General Geriatric Medicine 06/28/23 documented as of this encounter
--- OUTSIDE RECORDS SUMMARY | 2024-07-29 18:39 | XMS_ITS | Encounter Summary ---
Author Organization [facility] Address [address] [place] [address] Care Team Providers Care Tower Loader Operator Name Role Phone Omaira Bailey MD Primary Care Provider [phone] Reason for Referral * Consultation (Routine) - Authorized Specialty Diagnoses / Procedures Referred By Missael jaimes Referred To Contact Cardiology Diagnoses Syncope, unspecified syncope type Bradycardia High triglycerides Macario Benjamin MD [address] [facility] [address] [address] Phone: tel: fax: [facility] ? [address] [address] Phone: tel: fax: Referral ID Status Reason Start Date Expiration Date Visits Requested Visits Authorized [id number] Authorized Evaluate and Treat 03/02/2024 08/29/2024 12 12 Reason for Visit * Reason Comments Follow-up * Consultation (Routine) - Authorized Specialty Diagnoses / Procedures Referred By Missael jaimes Referred To Contact Cardiology Diagnoses Syncope, unspecified syncope type Bradycardia High triglycerides Macario Benjamin MD [address] [facility] [address] [address] Phone: tel: fax: [facility] ? [place] [address] [place], [place] [address] Phone: tel: fax: Referral ID Status Reason Start Date Expiration Date Visits Requested Visits Authorized [id number] Authorized Evaluate and Treat 03/02/2024 08/29/2024 12 12 Encounter Details Date Type Department Care Team (Latest Contact Info) Description 03/02/2024 11:20 AM CDT Office Visit [facility] ? [place] [address] [phone] Macario Benjamin MD [address] [facility] [address] [place], [place] [address] High triglycerides (Primary Dx); Syncope, unspecified syncope type; Bradycardia Social History Tobacco Use Types Packs/Day Years [...] Sex Assigned at Male 09/18/2023 1:29 PM TOOLING SPECIALIST Legal Sex Male 12:25 PM CDT Gender Identity Male 09/18/2023 1:29 PM TOOLING SPECIALIST Sexual Orientation Straight 09/18/2023 1: 29 PM TOOLING SPECIALIST documented as of this encounter Last Filed Vital Signs Vital Sign Reading Time Taken Comments Blood Pressure 117/63 03/02/2024 10:49 AM CDT Pulse 52 03/02/2024 10:49 AM CDT Temperature - - Respiratory Rate - - Oxygen Saturation - - Inhaled Oxygen Concentration - - Weight 86 kg (189 lb 11.2 oz) 03/02/2024 10:49 A M CDT Height 177.8 cm (5' 10 ) 03/02/2024 10:49 AM CDT Body Mass Index 27.22 03/02/2024 10:49 AM CDT documented in this encounter Patient Instructions * Patient Instructions* Latoya Brown RN - 03/02/2024 11:20 AM CDT .Do you know how to contact your healthcare professionals for questions or concerns. Please contactus through the patient portal or by calling [phone]. [facility] [place] [address] [facility], [place] [address] documented in this encounter Progress Notes * Macario Benjamin MD - 03/02/2024 11:20 AM CDT 03/02/2024 Visit Type: Established patient HISTORY OF PRESENT ILLNESS: Alfred Dodge is a 83 year male with BPH, ear problems, vertigo who was referred for falls and abnormal EKG and seen for follow-up today. At last visit, ordered for amb monitor and nuc stress. Referred to EP for ILR consideration given bradycardia and falls. Since then: -2 weeks ago, woke up really fatigued. Had restricted his diet significantly before that - started eating sugar/carbs, felt 80% better, then better following morning. [place] as no energy. +LH. No syncope -No chest pain -No shortness of breath -No further dizziness episodes. -BP has normalized at home -has not had EP eval yet Previous history: Has had falls where he just fell. 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 No pertinent past medical history. History reviewed. No pertinent surgical history. Current Outpatient Medications Medication Sig Dispense Refill [...] Patrick MD 11.3 millicurie at 01/12/24 0855 ALL: Ciprofloxacin and Indomethacin No family history [...] 3.9cm, no pericardial effusion December 2023 EKG: marked sinus bradycardia at 44bpm, 1avb December 2023 Nuc stress: normal ETT, normal MPI (small mild inferior/apical artifact), normal EF January 2024 14d amb monitor: SB, HR 34-130bpm, mean rate 57bpm, frequent APCs/AT runs, occ PVCs/couplets, one 3 bt run of VT at 133bpm ASSESSMENT/PLAN: Alfred Dodge is a 83 year male with BPH, ear problems, vertigo who was referred for falls and abnormal EKG and seen for follow-up today. #Bradycardia: -EKG and monitor with sinus bradycardia -no current symptoms -falls in the past with unclear symptoms if could have been symptomatic bradycardia -episode of fatigue/LH 2 weeks (not with monitor) he thinks related to carb/sugar intake decrease -improved now -normal increase in HR on stress -3bt NSVT on monitor - no ischemia on nuc stress and not symptomatic, normal EF, no BB given bradycardia -EP referral as before for ILR consideration given falls and bradycardia - not clearly related for PPM indication but still concerning given HR -echo unremarkable, aortic root borderline but within 2sd based on bsa -avoid inderjit blockers -advised if any symptoms of lh/dizzy/syncope to seek immediate care #Elevated BP: -normalized #Elevated TG: has made dietary changes, recheck fasting Continue follow-up PCP Follow-up here 6 months or sooner as needed Diagnosis & Orders: ICD-10-CM 1. High triglycerides E78.1 2. Syncope, unspecified syncope type R55 3. Bradycardia R00.1 Education/ Counseling: follow up visit Macario Benjamin MD 11:25 AM documented in this encounter Plan of Treatment Upcoming Encounters Date Type Department Care Team (Late st Contact Info) Description 09/05/2024 11:20 AM TOOLING SPECIALIST Office Visit [facility] ? [place] [address] [phone] Macario Benjamin MD [address] [place], [place] [address] 09/08/2024 2:00 PM TOOLING SPECIALIST Office Visit [facility] ? [place] [address] [phone] Omaira Bailey MD [address] [place], [place] [address] 09/13/2024 1:20 PM TOOLING SPECIALIST Office Visit [facility] ? [place] [address] [facility] [place] [address] [place] [address] [address] [facility] [place] [address] Scheduled Referrals Name Type Priority Associated Diagnoses Orde r Schedule Ambulatory referral to Cardiac Electrophysiology Outpatient Referral Routine Syncope, unspecified syncope type Bradycardia High triglycerides Expected: 03/02/2024, Expires: 03/02/2025 documented as of this encounter Procedures Procedure Name Priority Date/Time Associated Diagnosis Comments VITAMIN D 25 HYDROXY Routine 03/04/2024 5:55 AM CDT LIPID PANEL Routine 03/04/2024 5:48 AM CDT High triglycerides BASIC METABOLIC PANEL Routine 03/04/2024 5:48 AM CDT CBC AND DIFFERENTIAL Routine 03/04/2024 2:59 AM CDT documented in this encounter Results * Vitamin D 25 hydroxy (03/04/2024 5:55 AM CDT) Pathologist [facility] Vitamin D, 25-Hydroxy 60 SEE BELOW NG/ML CPL Comment: NOTE: 25-HYDROXYVITAMIN D ASSAY INCLUDES 25-HYDROXYVITAMIN D2 ?AND D3. ?INTERPRETIVE RANGES ? PEDIATRIC (<17 YEARS) . . . . . . . . . . . NG/ML ? 20-100 ADULT: ??INSUFFICIENT ??. . . . . . . . . . . . . . NG/ML ? <20 ??SUBOPTIMAL ??. . . . . . . . . . . . . . . NG/ML ? 20-29 ??OPTIMAL . . . . . . . . . . . . . . . . . NG/ML ? 30-100 Testing Performed At: [facility]: ??[facility], [address] [place] [address] Wood And Hardware Outfitter: Audelia Olivera M.D., [facility] #: [id number] 03/03/2024 12: 53 PM CDT Narrative CPL - 03/04/2024 5:55 AM CDT PT FASTING Macario Benjamin MD LAB BLOOD ORDERABLES Final Resu lt CPL * (ABNORMAL) Basic metabolic panel (03/04/2024 5:48 AM CDT) GLUCOSE 97 70 - 99 MG/DL CPL BUN 19 8 - 23 MG/DL CPL CREATININE 1.35 0.80 - 1.40 MG/DL CPL eGFR If NonAfricn Am 52(L) >60 ML/MIN/1.7 3 CPL Comment: The NKF-ASN Taskforce recommends use of Cystatin C to confirm eGFR in adults at risk for CKD. ??[facility] offers eGFR with Cystatin C-Creatinine using the 2020 CKD-EPI eGFR_creat-cystat equation (order code 3057) to increase the accuracy of estimated GFR. For more information, contact your account support manager or see announcement at [email or web address] SODIUM 146 133 - 146 MEQ/L CPL POTASSIUM 5.0 3.5 - 5.4 MEQ/L CPL CHLORIDE 109(H) 95 - 107 MEQ/L CPL CARBON DIOXIDE 25 19 - 31 MEQ/L CPL CALCIUM 11.2(H) 8.5 - 10.5 MG/DL CPL Comment: Testing Performed At: [facility]: ??[facility], [address] [place] [address] Wood And Hardware Outfitter: Audelia Olivera M.D., [facility] #: [id number] 03/03/2024 12: 53 PM CDT Narrative [facility] - 03/04/2024 5:48 AM CDT PT FASTING Macario Benjamin MD LAB BLOOD ORDERABLES Final Resu lt CPL * (ABNORMAL) Lipid panel (03/04/2024 5:48 AM CDT) Cholesterol 146 <200 MG/DL CPL TRIGLYCERIDES 103 <150 MG/DL CPL HDL CHOLESTEROL 32(L) >39 MG/DL CPL LDL-CHOLESTEROL 94 <100 MG/DL CPL Comment: NOTE: CALCULATED LDL IS BASED ON ARIADNA-AMAYA METHOD WHICH INCLUDES ADJUSTABLE TRIGLYCERIDE:VLDL CHOLESTEROL RATIO. THIS FACTOR VARIES BY MEASURED TRIGLYCERIDE AND NON-HDL CHOLESTEROL CONCENTRATIONS WITH INCREASED CALCULATED LDL SEEN IN HIGHER TRIGLYCERIDE OR LOWER NON-HDL SPECIMENS. FOR MORE INFORMATION, SEE CLIENT ANNOUNCEMENT AT [email or web address]/HDL RATIO 2.94 <3.55 RATIO CPL Comment: Testing Performed At: [facility]: ??[facility], [address] [place] [address] Wood And Hardware Outfitter: Audelia Olivera M.D., [facility] #: [id number] Blood (Blood) 03/03/2024 12:53 PM CDT Narrative CPL - 03/04/2024 5:48 AM CDT PT FASTING us Macario Benjamin MD LAB BLOOD ORDERABLES Final Resu lt CPL * (ABNORMAL) CBC and differential (03/04/2024 2:59 AM CDT) WHITE BLOOD CELL COUNT 8.6 3.5 - 11.0 K/UL CPL RED BLOOD CELL COUNT 4.74 4.50 - 6.10 M/UL CPL HEMOGLOBIN 14.0 13.5 - 17.0 G/DL CPL HEMATOCRIT 43.5 40.0 - 51.0 % CPL MCV 91.8 80.0 - 99.0 fL CPL MCH 29.5 25.0 - 33.0 PG CPL MCHC 32.2 31.0 - 36.0 G/DL CPL RDW 12.0 % CPL NEUTROPHILS 49.5 % CPL LYMPHOCYTES 43.3 % CPL MONOCYTES 5.7 % CPL EOSINOPHILS 0.7 % CPL BASOPHILS 0.6 % CPL Immature Granulocytes 0.2 % CPL NUCLEATED RBC 0.0 0.0 /100 WBC'S CPL PLATELET COUNT 128(L) 130 - 400 K/UL CPL ABSOLUTE NEUTROPHILS 4.26 1.50 - 7.50 K/UL CPL ABSOLUTE LYMPHOCYTES 3.72 1.00 - 4.00 K/UL CPL ABSOLUTE MONOCYTES 0.49 0.20 - 1.00 K/UL CPL ABSOLUTE EOSINOPHILS 0.06 0.00 - 0.50 K/UL CPL ABSOLUTE BASOPHILS 0.05 0.00 - 0.20 K/UL CPL Immature Granulocytes 0.02 0.00 - 0.10 K/UL CPL ABSOLUTE NUCLEATED RBC 0.00 K/UL CPL Comment: Testing Performed At: [facility]: ??[facility], [address] [place] [address] Wood And Hardware Outfitter: Audelia Olivera M.D., [facility] #: [id number] 03/03/2024 12: 53 PM CDT Narrative CPL - 03/04/2024 2:59 AM CDT PT FASTING us Macario Benjamin MD LAB BLOOD ORDERABLES Final Resu lt [facility] documented in this encounter Visit Diagnoses Diagnosis High triglycerides- Primary Unspecified disorder of lipoid metabolism Syncope, unspecified syncope type Bradycardia Other specified cardiac dysrhythmias documented in this encounter Care Teams Tower Loader Operator Relationship Specialty Start Date End Date Omaira Bailey MD [address] [place] [address] [address] [address] PCP - General Geriatric Medicine 06/28/23 documented as of this encounter
--- OUTSIDE RECORDS SUMMARY | 2024-07-29 18:39 | XMS_ITS | Encounter Summary ---
Author Organization [facility] Address [address] [place] [address] Care Team Providers Care Thread Singer Name Role Phone Omaira Bailey MD Primary Care Provider [phone] Encounter Details Date Type Department Care Team (Late st Contact Info) Description 04/17/2024 9:30 AM CDT Ancillary Procedure [facility] ? [place] [address] [place] [phone] Bradycardia Social History Tobacco Use Types Packs/Day [...] Sex Assigned at Male 09/18/2023 1:29 PM HOTEL ENGINEER Legal Sex Male 12:25 PM CDT Gender Identity Male 09/18/2023 1:29 PM HOTEL ENGINEER Sexual Orientation Straight 09/18/2023 1: 29 PM HOTEL ENGINEER documented as of this encounter Plan of Treatment Upcoming Encounters Date Type Department Care Team (Late st Contact Info) Description 09/05/2024 11:20 AM HOTEL ENGINEER Office Visit [facility] ? [place] [address] [phone] Macario Benjamin MD [address] [address] 09/08/2024 2:00 PM HOTEL ENGINEER Office Visit [facility] ? [place] [address] [phone] Omaira Bailey MD [address] [place], [place] [phone] 09/13/2024 1:20 PM HOTEL ENGINEER Office Visit [facility] ? [place] [address] [place] [address] [place] [address] [place] [address] documented as of this encounter Procedures Procedure Name Priority Date/Time Associated Diagnosis Comments REMOTE MONITORING - NON BILLABLE Routine 04/17/2024 9:26 AM CDT Bradycardia documented in this encounter Results * Remote Monitoring - Non-Billable (04/17/2024 9:26 AM CDT) Narrative RHYTHM MANAGEMENT - 04/17/2024 9:26 AM CDT This order was used for the enrollment with the 3rd-republic[employer] vendor. Please see the separate result from the remote monitoring forthcoming. us Jeferson Umana MD CV IMPLANTABLE CARDI AC DEVICE PROCEDURES Final Result RHYTHM MANAGEMENT documented in this encounter Visit Diagnoses Diagnosis Bradycardia Other specified cardiac dysrhythmias documented in this encounter Additional Health Concerns Assessment Noted Time PHQ-9 Depression Total Score: 3 03/03/20 24 1:26 PM CDT documented as of this encounter Care Teams Thread Singer Relationship Specialty Start Date End Date Omaira Bailey MD [address] [place] [address] [address] [address] PCP - General Geriatric Medicine 06/28/23 documented as of this encounter
--- OUTSIDE RECORDS SUMMARY | 2024-07-29 18:39 | XMS_ITS | Encounter Summary ---
Author Organization [facility] Address [address] [place] [address] Care Team Providers Care Siding Coreboard Inspector Name Role Phone Omaira Bailey MD Primary Care Provider [phone] Encounter Details Date Type Department Care Team (Latest Contact Info) Description 01/12/2024 8:45 AM CDT Ancillary Procedure [facility] ? [place] [address] [phone] Syncope (Primary Dx); Abnormal EKG; Vertigo Social History Tobacco Use Types Packs/Day Years Used Date Smoking Tobacco: Never Passive Smoke Exposure: Past Smokeless Tobacco: Never Passive Exposure Comments:Pa rents smoked Alcohol Use Standard Drinks/Week Comments Yes 1 (1 standard drink = 0.6 oz pur e alcohol) Sex and Gender Information Value Date Recorded Sex Assigned at Male 09/18/2023 1:29 PM CIGAR BANDER Legal Sex Male 12:25 PM CDT Gender Identity Male 09/18/2023 1:29 PM CIGAR BANDER Sexual Orientation Straight 09/18/2023 1: 29 PM CIGAR BANDER documented as of this encounter Last Filed Vital Signs Vital Sign Reading Time Taken Comments Blood Pressure - - Pulse - - Temperature - - Respiratory Rate - - Oxygen Saturation - - Inhaled Oxygen Concentration - - Weight 90.7 kg (200 lb) 01/12/2024 12:10 PM CDT Height - - Body Mass Index 28.7 12/28/2023 10:43 AM CDT documented in this encounter Plan of Treatment Upcoming Encounters Date Type Department Care Team (Late st Contact Info) Description 09/05/2024 11:20 AM CIGAR BANDER Office Visit [facility] ? [place] [address] [phone] Macario Benjamin MD [address] [address] 09/08/2024 2:00 PM CIGAR BANDER [facility] ? [place] [address] [phone] Omaira Bailey MD [address] [place], [place] [phone] 09/13/2024 1:20 PM CIGAR BANDER Office Visit [facility] ? [place] [email or web address] [address] [place] [email or web address] [address] documented as of this encounter Procedures Procedure Name Priority Date/Time Associated Diagnosis Comments NM MYOCARDIAL PERFUSION SPECT REST AND STRESS (MULTIPLE) Routine 01/12/2024 11:44 AM CDT Abnormal EKG documented in this encounter Results * NM [...] with an ejection fraction of >70%. pn us Macario Benjamin MD IMG NM PROCEDURES Final Result documented in this encounter Visit Diagnoses Diagnosis Syncope- Primary Syncope and collapse Abnormal EKG Nonspecific abnormal electrocardiogram (ECG) (EKG) Vertigo Dizziness and giddiness documented in this encounter Administered Medications Active Administered Medications - up to 3 most recent administrations Medication Order MAR Action Action Date Dose Rate Site technetium Tc-99m sestamibi (Cardiolite) radio-isotope injection 18-45 millicurie 18-45 millicurie, Intravenous, As needed, Starting on Wed01/12/24 at 1145, For 2 doses, Indications: Cardiac Stress TestIndications:Cardiac Stress Test Given 01/12/2024 11:35 AM CDT 33 millicuries technetium Tc-99m sestamibi (Cardiolite) radio-isotope injection 8-18 millicurie 8-18 millicurie, Intravenous, As needed, Starting on Wed01/12/24 at 1145, For 2 doses, Indications: Cardiac Stress TestIndications:Cardiac Stress Test Given 01/12/2024 8:55 AM CDT 11.3 millicuries documented in this encounter Care Teams Siding Coreboard Inspector Relationship Specialty Start Date End Date Omaira Bailey MD [address] [place] [address] [address] [place] [address] PCP - General Geriatric Medicine 06/28/23 documented as of this encounter
--- OUTSIDE RECORDS SUMMARY | 2024-07-29 18:39 | XMS_ITS | Encounter Summary ---
Author Organization [facility] Address [address] [place] [address] Care Team Providers Care Chief Security And Safety Officer Name Role Phone Omaira Bailey MD Primary Care Provider [phone] Encounter Details Date Type Department Care Team (Latest Contact Info) Description 03/28/2024 Travel Social History Tobacco Use Types Packs/Day [...] Sex Assigned at Male 09/18/2023 1:29 PM CANDY FORMING MACHINE OPERATOR Legal Sex Male 12:25 PM CDT Gender Identity Male 09/18/2023 1:29 PM CANDY FORMING MACHINE OPERATOR Sexual Orientation Straight 09/18/2023 1: 29 PM CANDY FORMING MACHINE OPERATOR documented as of this encounter Plan of Treatment Upcoming Encounters Date Type Department Care Team (Late st Contact Info) Description 09/05/2024 11:20 AM CANDY FORMING MACHINE OPERATOR Office Visit [facility] ? [place] [address] [facility] [address] [place] [phone] Macario Benjamin MD [address] [address] 09/08/2024 2:00 PM CANDY FORMING MACHINE OPERATOR Office Visit [facility] ? [place] [address] [phone] Omaira Bailey MD [address] [address] 09/13/2024 1:20 PM CANDY FORMING MACHINE OPERATOR Office Visit [facility] ? [place] [address] [place] [address] [place] [address] [place] [address] documented as of this encounter Visit Diagnoses Not on filedocumented in this encounter Additional Health Concerns Assessment Noted Time PHQ-9 Depression Total Score: 3 03/03/20 24 1:26 PM CDT documented as of this encounter Care Teams Chief Security And Safety Officer Relationship Specialty Start Date End Date Omaira Bailey MD [address] [facility] [address] [place], [place] [address] PCP - General Geriatric Medicine 06/28/23 documented as of this encounter
--- OUTSIDE RECORDS SUMMARY | 2024-07-29 18:43 | XMS_ITS | Encounter Summary ---
Author Organization [facility] Address [address] [facility] [place] [address] Care Team Providers Care Casino Porter Name Role Phone Unavailable Primary Care Provider Unavailabl e Reason for Visit * Reason Onset Date Comments Appointment 06/20/2024 Encounter Details Date Type Department Care Team (Late st Contact Info) Description 06/20/2024 Telephone [facility] [address] [place] [address] Ricky Thakkar MD [address] [place] [address] Appointment Social History Tobacco Use Types Packs/Day Years Used Date Smoking Tobacco: Never Assessed Sex and Gender Information Value Date Recorded Sex Assigned at Not on file Legal Sex Male 10:51 AM TOUCH UP PAINTER HAND Gender Identity Not on file Sexual Orientation Not on file documented as of this encounter Miscellaneous Notes * Telephone Encounter - Doug Dunn RN - 06/20/2024 11:30 AM CST Message noted. We will offer an earlier appointment if it becomes available. Thank you. H UP PAINTER HAND * Telephone Encounter - Mariella Abdullahi - 06/20/2024 11:05 AM CST Ramesh (Afternoon), Patient was scheduled on (07/11/2024) with Dr. Mcduffie) for the following diagnosis (Parathyroid). As per the physicians, they would like for new patients to be scheduled within 5-7 business days or 48-72 hours. Are you able to assist with providing the patient with a sooner appointment? Please advise when completed. Thank you! H UP PAINTER HAND documented in this encounter Plan of Treatment Upcoming Encounters Date Type Department Care Team (Latest Contact Info) Description 09/07/2024 11:14 AM TOUCH UP PAINTER HAND Hospital Encounter [facility] [address] [address] Ricky Thakkar MD [address] [place] [address] 09/07/2024 11:14 AM TOUCH UP PAINTER HAND - 09/07/2024 12:57 PM TOUCH UP PAINTER HAND Surgery [facility] [address] [address] Ricky Thakkar MD [address] [place] [address] EXPLORATION, PARATHYROID Scheduled Procedures Name Priority Associated Diagnoses Date/Ti me EXPLORATION, PARATHYROID Primary hyperparathyroidism (HCC) 09/07/2024 11:14 AM TOUCH UP PAINTER HAND documented as of this encounter Visit Diagnoses Not on filedocumented in this encounter
--- OUTSIDE RECORDS SUMMARY | 2024-07-29 18:43 | XMS_ITS | Encounter Summary ---
Author Organization [employer] Address [address] [facility] [address] Care Team Providers Care Network Intelligence Analyst Name Role Phone Unavailable Primary Care Provider Unavailabl e Reason for Visit * Reason Onset Date Comments Appointment 07/05/2024 Encounter Details Date Type Department Care Team (Late Contact Info) Description 07/05/2024 Telephone [facility] OT SURGICAL ONCOLOGY [address] [facility] [address] [place] [address] Ricky Thakkar MD [address] [place] [address] Appointment Social History Tobacco Use Types Packs/Day Years Used Date Smoking Tobacco: Never Assessed Sex and Gender Information Value Date Recorded Sex Assigned at Not on file Legal Sex Male 10:51 AM COMMUTATOR REPAIRER Gender Identity Not on file Sexual Orientation Not on file documented as of this encounter Miscellaneous Notes * Telephone Encounter - Ashley Ruiz RN - 07/05/2024 4:43 PM CST I called and left a message, reminding the patient of their appointment on 07/11/24 at 1:45 pm. I asked the patient to bring in any diagnostic imaging and labs for further evaluation. UTATOR REPAIRER documented in this encounter Plan of Treatment Upcoming Encounters Date Type Department Care Team (Latest Contact Info) Description 09/07/2024 11:14 AM COMMUTATOR REPAIRER Hospital [facility] [address] [facility] [address] [place] [address] Ricky Thakkar MD [address] [place] [address] 09/07/2024 11:14 AM COMMUTATOR REPAIRER - 09/07/2024 12:57 PM COMMUTATOR REPAIRER Surgery [facility] OTM PERIOPERATIVE SERVICES [address] [facility] 4th [place] [address] Ricky Thakkar MD [address] [place] [address] EXPLORATION, PARATHYROID Scheduled Procedures Name Priority Associated Diagnoses Date/Ti me EXPLORATION, PARATHYROID Primary hyperparathyroidism (HCC) 09/07/2024 11:14 AM COMMUTATOR REPAIRER documented as of this encounter Visit Diagnoses Not on filedocumented in this encounter
--- OUTSIDE RECORDS SUMMARY | 2024-07-29 18:43 | XMS_ITS | Referral Summary ---
Author Organization [employer] Address [address] [place] [address] Care Team Providers Care Certifier Name Role Phone Unavailable Primary Care Provider Unavailabl e Encounters Date Type Department Care Team Description 07/20/[address] [facility] OT SURGICAL ONCOLOGY [address] [address] Ricky Thakkar MD Appointment 2024 [facility] [address] [address] Ricky Thakkar MD Appointment 07/12/[address] [facility] OT SURGICAL ONCOLOGY [address] [address] Ricky Thakkar MD np 07/11/2024 1:45 PM RADIOACTIVE WASTE DISPOSAL DISPATCHER Office [facility] [address] [address] Ricky Thakkar MD Hyperparathyroidism (HCC) (Primary Dx) 07/05/2024 Telephone [facility] [address] [address] Ricky Thakkar MD Appointment 06/20/[address] [facility] OTM SURGICAL ONCOLOGY [address] [address] Ricky Thakkar MD Appointment from Last 3 Months Allergies Active Allergy Reactions Criticality Noted Date Comments Ciprofloxacin Other (See Comments) 09/17/2023 Pain in calves Indomethacin Other (See Comments) 09/17/2023 Pain in calves Calf leg pain Medications alfuzosin (UROXATRAL) 10 mg 24 hr tablet Take 1 tablet (10 mg total) by mouth. Active FINASTERIDE ORAL 7 Active varenicline (Chantix Continuing Month Box) 1 mg tablet Take 1 tablet (1 mg total) by mouth 2 (two) times daily for 90 days Give with meals and with a full glass of water.. 60 tablet 2 4 07/11/20 24 Discontinu ed(Error) Social History Tobacco Use Types Packs/Day Years Used Date Smoking Tobacco: Never Smokeless Tobacco: Never Tobacco Cessation:Counseling Given: Not Answered Alcohol Use Standard Drinks/Week Comments Yes 0 (1 standard drink = 0.6 oz pur e alcohol) Sex and Gender Information Value Date Recorded Sex Assigned at Not on file Legal Sex Male 10:51 AM RADIOACTIVE WASTE DISPOSAL DISPATCHER Gender Identity Not on file Sexual Orientation Not on file Last Filed Vital Signs Vital Sign Reading Time Taken Comments Blood Pressure 139/69 07/11/2024 1:26 PM RADIOACTIVE WASTE DISPOSAL DISPATCHER Pulse 57 07/11/2024 1:26 PM RADIOACTIVE WASTE DISPOSAL DISPATCHER Temperature 36.7 ??C (98 ??F) 07/11/2024 1:26 PM RADIOACTIVE WASTE DISPOSAL DISPATCHER Respiratory Rate 18 07/11/2024 1:26 PM RADIOACTIVE WASTE DISPOSAL DISPATCHER Oxygen Saturation 100% 07/11/2024 1:26 PM RADIOACTIVE WASTE DISPOSAL DISPATCHER Inhaled Oxygen Concentration - - Weight 87.5 kg (193 lb) 07/11/2024 1:26 PM RADIOACTIVE WASTE DISPOSAL DISPATCHER Height 177.8 cm (5' 10 ) 07/11/2024 1:26 PM RADIOACTIVE WASTE DISPOSAL DISPATCHER Body Mass Index 27.69 07/11/2024 1:26 PM RADIOACTIVE WASTE DISPOSAL DISPATCHER Plan of Treatment Upcoming Encounters Date Type Department Care Team (Latest Contact Info) Description 09/07/2024 11:14 AM RADIOACTIVE WASTE DISPOSAL DISPATCHER Hospital En[facility] [address] [facility] [address] [place] [address] Ricky Thakkar MD [address] [place] [address] 09/07/2024 11:14 AM RADIOACTIVE WASTE DISPOSAL DISPATCHER - 09/07/2024 12:57 PM RADIOACTIVE WASTE DISPOSAL DISPATCHER Surgery [facility] [address] [facility] [address] [place] [address] Ricky Thakkar MD [address] [place] [address] EXPLORATION, PARATHYROID Scheduled Procedures Name Priority Associated Diagnoses Date/Ti me EXPLORATION, PARATHYROID Primary hyperparathyroidism (HCC) 09/07/2024 11:14 AM RADIOACTIVE WASTE DISPOSAL DISPATCHER Insurance MEDICARE A B [facility] MEDICARE ADVANTAGE Member Subscriber Plan / Payer (Ef fective 2022-Present) Name:Jean Dodge Relation to Subscriber:Self Name:Jean Dodge Payer ID:Not on file Group ID:Not on file Type:Not on file Address: DO not send paper claims; send to medicare.
--- OUTSIDE RECORDS SUMMARY | 2024-07-29 18:43 | XMS_ITS | Encounter Summary ---
Author Organization [employer] Address [address] [place] [address] Care Team Providers Care Kosher Butcher Name Role Phone Unavailable Primary Care Provider Unavailabl e Reason for Referral * CAT Scan (Routine) - New Request Specialty Diagnoses / Procedures Referred By Missael jaimes Referred To Contact Radiology Diagnoses Hyperparathyroidism (HCC) Procedures CT neck soft tissue without & with IV contrast Alva Moore PA-C [facility] MS BCM [address] [place] [address] Phone: tel: Referral ID Status Reason Start Date Expiration Date V isits Requested Visits Authorized [id number] New Request 07/11/2024 07/11/2025 1 1 NO HOST Reason for Visit * Reason Comments new patient * Consultation (Routine) - Closed Specialty Diagnoses / Procedures Referred By Missael jaimes Referred To Contact Surgical Oncology Diagnoses Parathyroid Procedures NEW PATIENT Referral, Self Ricky Thakkar MD [address] [place] [address] Phone: tel: fax: Referral ID Status Reason Start Date Expiration Date Visits Re quested Visits Authorized [id number] Closed 07/11/2024 07/11/2025 1 1 Encounter Details Date Type Department Care Team (Latest Contact Info) Description 07/11/2024 1:45 PM CASINO HOST [facility] [address] [place], [place] [id number] Ricky Thakkar MD [address] [place], [place] [id number] Hyperparathyroidism (HCC) (Primary Dx) Social History Tobacco Use Types Packs/Day Years Used Date Smoking Tobacco: Never Smokeless Tobacco: Never Tobacco Cessation:Counseling Given: Not Answered Alcohol Use Standard Drinks/Week Comments Yes 0 (1 standard drink = 0.6 oz pur e alcohol) Sex and Gender Information Value Date Recorded Sex Assigned at Not on file Legal Sex Male 10:51 AM CASINO HOST Gender Identity Not on file Sexual Orientation Not on file documented as of this encounter Last Filed Vital Signs Vital Sign Reading Time Taken Comments Blood Pressure 139/69 07/11/2024 1:26 PM CASINO HOST Pulse 57 07/11/2024 1:26 PM CASINO HOST Temperature 36.7 ??C (98 ??F) 07/11/2024 1:26 PM CASINO HOST Respiratory Rate 18 07/11/2024 1:26 PM CASINO HOST Oxygen Saturation 100% 07/11/2024 1:26 PM CASINO HOST Inhaled Oxygen Concentration - - Weight 87.5 kg (193 lb) 07/11/2024 1:26 PM CASINO HOST Height 177.8 cm (5' 10 ) 07/11/2024 1:26 PM CASINO HOST Body Mass Index 27.69 07/11/2024 1:26 PM CASINO HOST documented in this encounter Patient Instructions * Patient Instructions* Ashley Ruiz RN - 07/11/2024 1:45 PM CASINO HOST Please call with product safety expert name NO HOST documented in this encounter Progress Notes * Ricky Thakkar MD - 07/11/2024 1:45 PM CST [facility] at [email or web address] DID YOU KNOW WE MOVED? UPDATE YOUR CONTACT INFORMATION! OUR NEW ADDRESS & PHONE [address] Surgical Oncolgy [place], [place] [address] Clinic appointments: [phone] Clinic fax: [phone] Surgeon Clinic Team: Ricky Thakkar MD [facility] Brenda Barone RN, MSN [phone] Alva ZIMMERC : [phone] Date of Visit: July 11, 2024 Patient Jean Dodge [facility] Clinic 1940 Referring Provider Primary Care Provider Referral, Self No primary care provider on file. Subjective Chief Complaint Primary hyperparathyroidism HPI This is a 83 y.o. 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 He has physical symptoms with kideny stones A 10 point review of systems was performed and was negative with the following pertinant positives below: The patient reports having the following Parathyroid specific Review Of Symptoms Non-Physical Signs and Symptoms: Neurocognitive Symptoms: yes - Concentration Neuropsychiatric Symptomst: yes - subclinical mood alteration Physical Signs and Symptoms: Bone pain yes Kidney Stones yes Osteopenia/Osteoporosis no History Pancreatitis no Peptic Ulcer Disease/GERD/Reflux no History of Hypercalcemic Crisis: no Parathyroid Specific Medical and Social History History of Radiation Exposure : no Previous Neck Surgery:no Hobbies or Job that involve using voice (ie singing, choir, public speaking): yes Currently on Thyroid Hormone Replacement Therapy: no notes a history of hypercalcemia for 1 years. ROS Past Medical History: Diagnosis Date Enlarged prostate Kidney stones Past Surgical History: Procedure Laterality Date TONSILLECTOMY at 4 yrs old No family history on file. Social History Tobacco Use Smoking status: Never Smokeless tobacco: Never Substance Use Topics Alcohol use: Yes Current Outpatient Medications: alfuzosin (UROXATRAL) 10 mg 24 hr tablet, Take 1 tablet (10 mg total) by mouth., Disp: , Rfl: FINASTERIDE ORAL, , Disp: , Rfl: Allergies Allergen Reactions Ciprofloxacin Other (See Comments) Pain in calves Indomethacin Other (See Comments) Pain in calves Calf leg pain Objective Vitals: 07/11/24 1326 BP: 139/69 BP Location: Right arm Patient Position: Sitting Cuff Size: Adult Pulse: 57 Resp: 18 Temp: 98 ??F (36.7 ??C) TempSrc: Oral SpO2: 100% Weight: 87.5 kg (193 lb) Height: 1.778 m (5' 10 ) General: Alert, Cooperative, appears stated age. THYROID EXAM: no thyromegaly Labs Scanned into [employer] system and independently reviewed and interpreted No results found for: CALCIUM No results found for: TSH , T3 , T4 No results found for: PTH , CALCIUM , CAION , PHOS Imaging None -- In clinic US with possible soft call RI adenoma. Will get CT parathyroid thru HMI per patient preference Pathology none Assessment Primary hyperparathyroidism with symptomatic kidney stone Plan Parathyroidectomy in second half of July or first half of August 2024 Cardiac clearance -- cards team is in care everywhere epic . 3.We discussed the risk of surgery including infection, bleeding, temproary and recurrent laryngealnerve as well as permanent and transient hypocalcemia, and the risks of general anesthetic including AK, CVA, sudden or even reaction to anesthetic medications. The patient understands the risks, any and all questions were answered to the patient's satisfaction. I used best case / worst case scenario methodology to enhance patient understanding and discussion. Ricky Thakkar MD, [facility] - [phone] Email - [email or web address] Chief of Endocrine Surgery, [facility] Certified by the [place] Board of [employer] NO HOST documented in this encounter Plan of Treatment Upcoming Encounters Date Type Department Care Team (Latest Contact Info) Description 09/07/2024 11:14 AM CASINO HOST Hospital Encounter [facility] OTM PERIOPERATIVE SERVICES [address] [address] Ricky Thakkar MD 1918 [place] [address] 09/07/2024 11:14 AM CASINO HOST - 09/07/2024 12:57 PM CASINO HOST Surgery [facility] OTM PERIOPERATIVE SERVICES [address] [address] Ricky Thakkar MD [address] [place] [address] EXPLORATION, PARATHYROID Scheduled Orders Name Type Priority Associated Diagnoses Orde r Schedule CT neck soft tissue without & with IV contrast Imaging Routine Hyperparathyroidism (HCC) Expected: 07/11/2024, Expires: 08/11/2025 Scheduled Procedures Name Priority Associated Diagnoses Date/Ti me EXPLORATION, PARATHYROID Primary hyperparathyroidism (HCC) 09/07/2024 11:14 AM CASINO HOST documented as of this encounter Visit Diagnoses Diagnosis Hyperparathyroidism (HCC)- Primary Hyperparathyroidism, unspecified Primary hyperparathyroidism (HCC) Primary hyperparathyroidism documented in this encounter
--- OUTSIDE RECORDS SUMMARY | 2024-07-29 18:43 | XMS_ITS | Encounter Summary ---
Author Organization [facility] [employer] Address [address] [place] [address] Care Team Providers Care Rope Twisting Machine Operator Name Role Phone Unavailable Primary Care Provider Unavailabl e Reason for Visit * Reason Onset Date Comments Appointment 07/20/2024 Encounter Details Date Type Department Care Team (Late st Contact Info) Description 07/20/2024 Telephone [facility] OT SURGICAL ONCOLOGY [address] [facility] [address]th [place] [address] Ricky Thakkar MD [address] [place] [address] Appointment Social History Tobacco Use Types Packs/Day Years Used Date Smoking Tobacco: Never Smokeless Tobacco: Never Alcohol Use Standard Drinks/Week Comments Yes 0 (1 standard drink = 0.6 oz pur e alcohol) Sex and Gender Information Value Date Recorded Sex Assigned at Not on file Legal Sex Male 10:51 AM AGRI BUSINESS AGENT Gender Identity Not on file Sexual Orientation Not on file documented as of this encounter Miscellaneous Notes * Telephone Encounter - Joyce John - 07/20/2024 10:16 AM CST I called this patient to discuss surgery scheduling. He did not answer. I left a message for the patient to call me back.The patient called me abdi before I finished this note. BUSINESS AGENT documented in this encounter Plan of Treatment Upcoming Encounters Date Type Department Care Team (Latest Contact Info) Description 09/07/2024 11:14 AM AGRI BUSINESS AGENT [facility] [address] [facility] 4th [place] [address] Ricky Thakkar MD [address] [place] [address] 09/07/2024 11:14 AM AGRI BUSINESS AGENT - 09/07/2024 12:57 PM AGRI BUSINESS AGENT Surgery [facility] [address] [facility] 4th [place] [address] Ricky Thakkar MD [address] [place] [address] EXPLORATION, PARATHYROID Scheduled Procedures Name Priority Associated Diagnoses Date/Ti me EXPLORATION, PARATHYROID Primary hyperparathyroidism (HCC) 09/07/2024 11:14 AM AGRI BUSINESS AGENT documented as of this encounter Visit Diagnoses Not on filedocumented in this encounter
--- OUTSIDE RECORDS SUMMARY | 2024-07-29 18:43 | XMS_ITS | Clinical Summary ---
Author Organization [employer] Address [address] [place] [address] Care Team Providers Care Clinical Data Programmer Name Role Phone Unavailable Primary Care Provider Unavailabl e Allergies Active Allergy Reactions Criticality Noted Date [...] tablet 2 4 07/11/20 24 Discontinu ed(Error) Encounters Date Type Department Care Team Description 07/20/2024 Telephone [facility] OTM SURGICAL ONCOLOGY [address] [address] Ricky Thakkar MD Appointment 2024 Telephone [facility] OTM SURGICAL ONCOLOGY [address] [address] Ricky Thakkar MD Appointment 07/12/2024 Telephone [facility] OTM SURGICAL ONCOLOGY [address] [address] Ricky Thakkar MD supervisor seaming 07/11/2024 1:45 PM STRIPER MACHINE Office Visit [facility] OTM SURGICAL ONCOLOGY [address] [address] Ricky Thkakar MD Hyperparathyroidism (HCC) (Primary Dx) 07/05/2024 [facility] [address] [facility] [address] [place] [address] Ricky Thakkar MD Appointment 06/20/2024 Telephone [facility] [address] [facility] [address] [place] [address] Ricky Thakkar MD Appointment from Last 3 Months Social History Tobacco Use Types Packs/Day Years Used Date Smoking Tobacco: Never Smokeless Tobacco: Never Tobacco Cessation:Counseling Given: Not Answered Alcohol Use Standard Drinks/Week Comments Yes 0 (1 standard drink = 0.6 oz pur e alcohol) Sex and Gender Information Value Date Recorded Sex Assigned at Not on file Legal Sex Male 10:51 AM STRIPER MACHINE Gender Identity Not on file Sexual Orientation Not on file Last Filed Vital Signs Vital Sign Reading Time Taken Comments Blood Pressure 139/69 07/11/2024 1:26 PM STRIPER MACHINE Pulse 57 07/11/2024 1:26 PM STRIPER MACHINE Temperature 36.7 ??C (98 ??F) 07/11/2024 1:26 PM STRIPER MACHINE Respiratory Rate 18 07/11/2024 1:26 PM STRIPER MACHINE Oxygen Saturation 100% 07/11/2024 1:26 PM STRIPER MACHINE Inhaled Oxygen Concentration - - Weight 87.5 kg (193 lb) 07/11/2024 1:26 PM STRIPER MACHINE Height 177.8 cm (5' 10 ) 07/11/2024 1:26 PM STRIPER MACHINE Body Mass Index 27.69 07/11/2024 1:26 PM STRIPER MACHINE Plan of Treatment Upcoming Encounters Date Type Department Care Team (Latest Contact Info) Description 09/07/2024 11:14 AM STRIPER MACHINE [facility] [address] [facility] [address]th [place] [address] Ricky Thakkar MD [address] [place] [address] 09/07/2024 11:14 AM STRIPER MACHINE - 09/07/2024 12:57 PM STRIPER MACHINE [facility] [address] [address] Ricky Thomas MD [address] [place] [address] EXPLORATION, PARATHYROID Scheduled Procedures Name Priority Associated Diagnoses Date/Ti me EXPLORATION, PARATHYROID Primary hyperparathyroidism (HCC) 09/07/2024 11:14 AM STRIPER MACHINE Health Maintenance Due Date Last Done Comments Depression Screening (12+) 1953 DTAP/TDAP/TD VACCINES (1 - Tdap) 1960 Shingles Vaccine (Zoster) (1 of 2) 1991 Medicare Initial AWV [id number] 08/27/2008 Respiratory Syncytial Virus (RSV) Adult or (1 - 1-dose 75+ series) 2016 Pneumococcal 65+ years (2 of 2 - PCV) 07/01/2017 07/01/2016 COVID-19 VACCINE (2023-2 5 season) 2024 04/14/2022, 04/24/2021, 10/15/2020, Additional history exists Influenza Vaccine (#1) 2024 06/16/2023, 2015 Falls Risk Screening 07/26/2024 Tobacco Cessation Counseling and Screening (12+) 07/11/2025 07/11/2024 Insurance MEDICARE A B GENERIC MEDICARE ADVANTAGE Member Subscriber Plan / Payer (Ef fective 2022-Present) Name:Jean Dodge Relation to Subscriber:Self Name:Jean Dodge Payer ID:Not on file Group ID:Not on file Type:Not on file Address: DO not send paper claims; send to medicare.
--- OUTSIDE RECORDS SUMMARY | 2024-07-29 18:43 | XMS_ITS | Encounter Summary ---
Author Organization [facility] [employer] Address [address] [place] [address] Care Team Providers Care Senior Patrol Agent Name Role Phone Unavailable Primary Care Provider Unavailabl e Reason for Visit * Reason Onset Date Comments cushion installer 07/12/2024 Encounter Details Date Type Department Care Team (Late st Contact Info) Description 07/12/2024 Telephone [facility] OT SURGICAL ONCOLOGY [address] [facility] [address] [place] [address] Ricky Thakkar MD [address] [place] [address] cushion installer Social History Tobacco Use Types Packs/Day Years Used Date Smoking Tobacco: Never Smokeless Tobacco: Never Alcohol Use Standard Drinks/Week Comments Yes 0 (1 standard drink = 0.6 oz pur e alcohol) Sex and Gender Information Value Date Recorded Sex Assigned at Not on file Legal Sex Male 10:51 AM FASHION DESIGNER Gender Identity Not on file Sexual Orientation Not on file documented as of this encounter Miscellaneous Notes * Telephone Encounter - Doug Dunn RN - 07/12/2024 8:00 AM CST I left a voicemail for the patient to callback with the name of his cushion installer for cardiac clearance. Callback number provided. ION DESIGNER documented in this encounter Plan of Treatment Upcoming Encounters Date Type Department Care Team (Latest Contact Info) Description 09/07/2024 11:14 AM FASHION DESIGNER Hospital [facility] [address] [facility] [address] [place] [address] Ricky Thakkra MD [address] [place] [address] 09/07/2024 11:14 AM FASHION DESIGNER - 09/07/2024 12:57 PM FASHION DESIGNER Surgery [facility] PERIOPERATIVE SERVICES [address] [facility] [address] [place] [address] Ricky Thakkar MD [address] [place] [address] EXPLORATION, PARATHYROID Scheduled Procedures Name Priority Associated Diagnoses Date/Ti me EXPLORATION, PARATHYROID Primary hyperparathyroidism (HCC) 09/07/2024 11:14 AM FASHION DESIGNER documented as of this encounter Visit Diagnoses Not on filedocumented in this encounter
--- OUTSIDE RECORDS SUMMARY | 2024-07-29 18:43 | XMS_ITS | Encounter Summary ---
Author Organization [facility] Address [address] [place] [address] Care Team Providers Care [employer] Service Technician Name Role Phone Unavailable Primary Care Provider Unavailabl e Reason for Visit * Reason Onset Date Comments Appointment 2024 Encounter Details Date Type Department Care Team (Late st Contact Info) Description 2024 Telephone [facility] OT SURGICAL ONCOLOGY [address] [facility] [address] [place] [address] Ricky Thakkar MD [address] [place] [address] Appointment Social History Tobacco Use Types Packs/Day Years Used Date Smoking Tobacco: Never Smokeless Tobacco: Never Alcohol Use Standard Drinks/Week Comments Yes 0 (1 standard drink = 0.6 oz pur e alcohol) Sex and Gender Information Value Date Recorded Sex Assigned at Not on file Legal Sex Male 10:51 AM SENIOR NET DEVELOPER Gender Identity Not on file Sexual Orientation Not on file documented as of this encounter Miscellaneous Notes * Telephone Encounter - Joyce John - 2024 4:22 PM CST I called the patient. He did not answer. I left a message for the patient to call me back. I will await the patient phone call. OR NET DEVELOPER documented in this encounter Plan of Treatment Upcoming Encounters Date Type Department Care Team (Latest Contact Info) Description 09/07/2024 11:14 AM SENIOR NET DEVELOPER [facility] [address] [facility] [address] [place] [address] Ricky Thakkar MD [address] [place] [address] 09/07/2024 11:14 AM SENIOR NET DEVELOPER - 09/07/2024 12:57 PM SENIOR NET DEVELOPER Surgery [facility] PERIOPERATIVE SERVICES [address] [place] [address] Ricky Thakkar MD [address] [place] [address] EXPLORATION, PARATHYROID Scheduled Procedures Name Priority Associated Diagnoses Date/Ti me EXPLORATION, PARATHYROID Primary hyperparathyroidism (HCC) 09/07/2024 11:14 AM SENIOR NET DEVELOPER documented as of this encounter Visit Diagnoses Not on filedocumented in this encounter
--- OUTSIDE RECORDS SUMMARY | 2024-07-29 18:44 | XMS_ITS | Data Portability ---
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 Brianda Nova MD. Document generated by: Ziggy Decker 10/01/2020 04:47 PM I personally performed the services described in this documentation, as scribed by Ziggy Decker, and the documentation accurately describes the information provided by the patient and the services I performed. Any difference or additional information is noted. [email or web address] Not available 10/01/2020 06:20:04 04/16/2021 04/16/2021 Discussed with patient that with tick bites usually the tape needs to be attached for longer than 48 hours for Lyme, actually developed. Additionally the lesion seen on patient's left forearm does not look similar to the rash seen with Lyme. Since the lesion showed up as a bruise and has slowly been fading over time it is very highly unlikely chance of Lyme disease. Additionally patient never saw a tick attached to his arm therefore do not suspect tick. Showed pictures of what lyme rash looks like the patient. Patient states he understands and agrees with our plan of monitoring.Will have patient continue to monitor area and follow up if any changes occurred to the bruise. [email or web address] Not available 04/16/2021 19:10:33 Plan of Treatment Reminders Order Date Submit Date Provider Last Modified By Organization Details Last Modified Time Details Appointments None recorded. Lab PSA, serum or plasma 2020 [facility], [address] [facility], [address], [place], [address], 08:47:14 urinalysis, dipstick 2020 [facility], [address], [address], [place], [address], 18:11:12 CBC w/ auto diff 2020 [facility], [address], [address], [place], [address], 08:47:12 CMP, serum or plasma 2020 [facility], [address], [place], [address], 08:47:13 lipid panel, serum 2020 [facility], [address] [facility], [address], [place], [address], 08:47:13 TSH, serum or plasma 2020 [facility], [address] [facility], [address], [place], [address], 08:47:14 Referral None recorded. Procedures None recorded. Surgeries None recorded. Imaging XR, ribs, unilateral, 3 or more view 2022 023 [facility], [address], [address], [place], [address], 3 14:17:40 Medication Orders tizanidine 2 mg tablet 2020 021 [email or web address] Not available 09:14:42 naproxen 500 mg tablet 2020 021 Not available 1 16:59:15 prednisone 20 mg tablet [address], [employer] [address], [place], [place], [id number], 3 17:28:38 prednisone 20 mg tablet 2023 024 [facility], [employer] [address], [place], [place], [id number], 4 16:57:28 erythromyci n 5 mg/gram (0.5 %) eye ointment 2023 024 [facility], [address] [address], [place], [place], [id number], 4 16:57:28 Patient TargetsNo targets recorded. Patient Instructions Encounter Date Encounter Id Patient Instructions Last Modified By Organization Details Last Modified Time 09/30/2020 [id number] learning about healthy weight [email or web address] Not available 09/30/2020 15:11:18 04/16/2021 [id number] body mass index: care instructions [email or web address] Not available 04/16/2021 19:11:52 learning about healthy weight [email or web address] Not available 04/16/2021 19:11:52 Reason for Referral None Reported. Results Created Date Observation Date Name Description Value Unit Range Abnormal Flag Note LastModifiedBy Organization Detail LastModifiedTime 02/17/2021 urina lysis , dipst ick Unknown Analyte yellow Not Available Andrea_harry _pablo me [address] [facility] [address], [place], [address], 02/17/2021 16:51:45 02/17/2021 urina lysis , dipst ick Unknown Analyte clear Not Available Dae holman al [address] [facility] [address], [place], [address], 02/17/2021 16:51:45 02/17/2021 urina lysis , dipst ick Unknown Analyte negati ve Not Available Telma ri me [address] [place] [address] [address], [place], [address], 02/17/2021 16:51:45 02/17/2021 urina lysis , dipst ick Unknown Analyte negati ve Not Available _luiso ri me [address] [facility] [address], [place], [address], 02/17/2021 16:51:45 02/17/2021 urina lysis , dipst ick Unknown Analyte negati ve Not Available linho [facility] [address] [place] [address] [address], [place], [address], 02/17/2021 16:51:45 02/17/2021 urina lysis , dipst ick Unknown Analyte 1.030 Not Available Dae holman me [address] [place] [address], [place], [address], 02/17/2021 16:51:45 02/17/2021 urina lysis , dipst ick Unknown Analyte negati ve Not Available darryl [facility] [address] [place] [address] [address], [place], [address], 02/17/2021 16:51:45 02/17/2021 urina lysis , dipst ick Unknown Analyte 5.5 Not Available Dae holman [address], [place], [address], 02/17/2021 16:51:45 02/17/2021 urina lysis , dipst ick Unknown Analyte negati ve Not Available Ivetteo [address], [place], [address], 02/17/2021 16:51:45 02/17/2021 urina lysis , dipst ick Unknown Analyte 0.2 Not Available Dae christiansonori al [address] [facility] [address], [place], [address], 02/17/2021 16:51:45 02/17/2021 urina lysis , dipst ick Unknown Analyte negati ve Not Available Ivetteo ri al [address] [facility] [address], [place], [address], 02/17/2021 16:51:45 02/17/2021 urina lysis , dipst ick Unknown Analyte negati ve Not Available Ivetteo ri al [address] [facility] [address], [place], [address], 02/17/2021 16:51:45 02/21/20 21 02/22/2021 CBC (INCL UDES DIFF/ PLT) white blood cell count 5.6 thous and/u L 3.8-10 .8 normal Not Available [facility] [address] [place] [address], [place], [address], 02/22/2021 08:47:12 02/21/20 21 02/22/2021 CBC (INCL UDES DIFF/ PLT) red blood cell count 4.88 ana on/uL 4.20-5 .80 normal Not Available [facility] [address] [place] [address] [address], [place], [address], 02/22/2021 08:47:12 02/21/20 21 02/22/2021 CBC (INCL UDES DIFF/ PLT) hemoglobin 14.9 g/dL 13.2-1 7.1 normal Not Available [facility] [address] [place] [address] [address], [place], [address], 02/22/2021 08:47:12 02/21/20 21 02/22/2021 CBC (INCL UDES DIFF/ PLT) hematocrit 45.4 % 38.5-5 0.0 normal Not Available [facility] [address] [place] [address], [address], 02/22/2021 08:47:12 02/21/20 21 02/22/2021 CBC (INCL UDES DIFF/ PLT) MCV 93.0 fL 80.0-1 00.0 normal Not Available [facility] [address] [place] [address], [place], [address], 02/22/2021 08:47:12 02/21/20 21 02/22/2021 CBC (INCL UDES DIFF/ PLT) MCH 30.5 pg 27.0-3 3.0 normal Not Available [facility] [address] [place] [address], [place], [address], 02/22/2021 08:47:12 02/21/20 21 02/22/2021 CBC (INCL UDES DIFF/ PLT) MCHC 32.8 g/dL 32.0-3 6.0 normal Not Available [facility] [address] [place] [address], [place], [address], 02/22/2021 08:47:12 02/21/20 21 02/22/2021 CBC (INCL UDES DIFF/ PLT) RDW 13.1 % 11.0-1 5.0 normal Not Available [facility] [address] [place] [address], [place], [address], 02/22/2021 08:47:12 02/21/20 21 02/22/2021 CBC (INCL UDES DIFF/ PLT) platelet count 104 thous and/u L 140-40 0 low Revie w of the perip heral smear revea ls decre ased numbe rs of plate lets. Not Available [facility] [address] [place] [address], [address], 02/22/2021 08:47:12 02/21/20 21 02/22/2021 CBC (INCL UDES DIFF/ PLT) MPV 13.5 fL 7.5-12 .5 high Not Available [facility] [address] [place] [address], [address], 02/22/2021 08:47:12 02/21/20 21 02/22/2021 CBC (INCL UDES DIFF/ PLT) absolute neutrophils 1697 cells /uL 1500-7 800 normal Not Available [facility] [address] [place] [address], [address], 02/22/2021 08:47:12 02/21/20 21 02/22/2021 CBC (INCL UDES DIFF/ PLT) absolute lymphocytes 3248 cells /uL 850-39 00 normal Not Available [facility] [address] [place] [address], [address], 02/22/2021 08:47:12 02/21/20 21 02/22/2021 CBC (INCL UDES DIFF/ PLT) absolute monocytes 566 cells /uL 200-95 0 normal Not Available [facility] [address] [place] [address], [address], 02/22/2021 08:47:12 02/21/20 21 02/22/2021 CBC (INCL UDES DIFF/ PLT) absolute eosinophils 39 cells /uL 15-500 normal Not Available [facility] [address] [place] [address], [address], 02/22/2021 08:47:12 02/21/20 21 02/22/2021 CBC (INCL UDES DIFF/ PLT) absolute basophils 50 cells /uL 0-200 normal Not Available [facility] [address] [place] [address], [address], 02/22/2021 08:47:12 02/21/20 21 02/22/2021 CBC (INCL UDES DIFF/ PLT) neutrophils 30.3 % normal Not Available [facility] [address] [place] [address], [address], 02/22/2021 08:47:12 02/21/20 21 02/22/2021 CBC (INCL UDES DIFF/ PLT) lymphocytes 58.0 % normal Not Available [facility] [address] [place] [address], [place], [address], 02/22/2021 08:47:12 02/21/20 21 02/22/2021 CBC (INCL UDES DIFF/ PLT) monocytes 10.1 % normal Not Available [facility] [address] [place] [address], [place], [address], 02/22/2021 08:47:12 02/21/20 21 02/22/2021 CBC (INCL UDES DIFF/ PLT) eosinophils 0.7 % normal Not Available [facility] [address] [place] [address], [place], [address], 02/22/2021 08:47:12 02/21/20 21 02/22/2021 CBC (INCL UDES DIFF/ PLT) basophils 0.9 % normal Not Available [facility] [address] [place] [address], [place], [address], 02/22/2021 08:47:12 02/21/20 21 02/21/2021 COMPR EHENS JC METAB OLIC PANEL _IH ALT 39 U/L 0-55 Not Available [facility] [address] [place] [address], [place], [address], 02/22/2021 08:47:13 02/21/20 21 02/21/2021 COMPR EHENS JC METAB OLIC PANEL _IH AST 27 U/L 5-34 Not Available [facility] [address] [place] [address], [address], 02/22/2021 08:47:13 02/21/20 21 02/21/2021 COMPR EHENS JC METAB OLIC PANEL _IH BUN 16.0 mg/dL 8.4-25 .0 Not Available [facility] [address] [place] [address], [place], [address], 02/22/2021 08:47:13 02/21/20 21 02/21/2021 COMPR EHENS JC METAB OLIC PANEL _IH alk phos 69 unit/ L 40-150 Not Available [facility] [address] [place] [address], [place], [address], 02/22/2021 08:47:13 02/21/20 21 02/21/2021 COMPR EHENS JC METAB OLIC PANEL _IH glucose 94 mg/dL 70-99 GLUCO SE REFER ENCE RANGE LISTE D ABOVE IS THE FASTI NG REFER ENCE INTER LILLIAN NON-F ASTIN G REFER ENCE INTER LILLIAN: 73 mg/dL - 107 mg/dL Not Available [facility] [address] [place] [address], [place], [address], 02/22/2021 08:47:13 02/21/20 21 02/21/2021 COMPR EHENS JC METAB OLIC PANEL _IH albumin 4.4 g/dL 3.4-5. 1 Not Available [facility] [address] [place] [address], [place], [address], 02/22/2021 08:47:13 02/21/20 21 02/21/2021 COMPR EHENS JC METAB OLIC PANEL _IH creatinine 1.26 mg/dL 0.72-1 .25 high Not Available [facility] [address] [place] [address], [place], [address], 02/22/2021 08:47:13 02/21/20 21 02/21/2021 COMPR EHENS JC METAB OLIC PANEL _IH eGFR non- 55 mL/mi n/1.7 3m2 abnormal Not Available [facility] [address] [place] [address], [place], [address], 02/22/2021 08:47:13 02/21/20 21 02/21/2021 COMPR EHENS JC METAB OLIC PANEL _IH total bilirubin 0.9 mg/dL 0.2-1. 2 Not Available [facility] [address] [place] [address], [place], [address], 02/22/2021 08:47:13 02/21/20 21 02/21/2021 COMPR EHENS JC METAB OLIC PANEL _IH eGFR - >60 mL/mi n/1.7 3m2 The eGFR is calcu lated based on the IDMS- trace able MDRD study equat ion. The NKDEP prese ntly recom mends repor ting estim ated GFR value s great er than or equal to 60 mL/mi n/1.7 3 m2 simpl y as > or = 60 mL/mi n/1.7 3 m2 , not an exact numbe r. The dolly l range for eGFR calcu latio n is any value >60. Not Available [facility] [address] [place] [address], [place], [address], 02/22/2021 08:47:13 02/21/20 21 02/21/2021 COMPR EHENS JC METAB OLIC PANEL _IH sodium 142 mEq/L 135-14 5 Not Available [facility] [address] [place] [address], [place], [address], 02/22/2021 08:47:13 02/21/20 21 02/21/2021 COMPR EHENS JC METAB OLIC PANEL _IH potassium 4.7 mEq/L 3.5-5. 3 Not Available [facility] [address] [place] [address], [place], [address], 02/22/2021 08:47:13 02/21/20 21 02/21/2021 COMPR EHENS JC METAB OLIC PANEL _IH chloride 110 mmol/ L 98-110 Not Available [facility] [address] [place] [address], [place], [address], 02/22/2021 08:47:13 02/21/20 21 02/21/2021 COMPR EHENS JC METAB OLIC PANEL _IH total protein 6.9 g/dL 6.1-8. 2 Not Available [facility] [address] [place] [address] [address], [place], [address], 02/22/2021 08:47:13 02/21/20 21 02/21/2021 COMPR EHENS JC METAB OLIC PANEL _IH calcium 10.8 mg/dL 8.8-10 .2 high RESUL T VERIF IED BY REPEA T DEVANG SIS Not Available [facility] [address] [place] [address] [address], [place], [address], 02/22/2021 08:47:13 02/21/20 21 02/21/2021 COMPR EHENS JC METAB OLIC PANEL _IH CO2 25.9 mmol/ L 20.0-3 2.0 Not Available [facility] [address] [place] [address], [place], [address], 02/22/2021 08:47:13 02/21/20 21 02/21/2021 COMPR EHENS JC METAB OLIC PANEL _IH anion gap 6 calc Not Available [facility] [address] [place] [address], [place], [address], 02/22/2021 08:47:13 02/21/20 21 02/21/2021 LIPID PANEL _IH HDL 33 mg/dL low Male nany ed HDL range is >40 mg/dL . Femal e nany ed HDL range is >50 mg/dL . Not Available [facility] [address] [place] [address] [address], [place], [address], 02/22/2021 08:47:13 02/21/20 21 02/21/2021 LIPID PANEL _IH triglyceride 225 mg/dL <150 high Not Available [facility] [address] [place] [address] [address], [place], [address], 02/22/2021 08:47:13 02/21/20 21 02/21/2021 LIPID PANEL _IH VLDL (calculated) 45 mg/dL Not Available [facility] [address] [place] [address] [address], [place], [address], 02/22/2021 08:47:13 02/21/2002/21/2021 LIPID PANEL _IH cholesterol/ HDL ratio 5.7 mg/dL Not Available [facility] [address] [place] [address], [place], [address], 02/22/2021 08:47:13 02/21/20 21 02/21/2021 LIPID PANEL _IH non-HDL cholesterol (calculated) 154 mg/dL <160 Not Available [facility] [address] [place] [address], [place], [address], 02/22/2021 08:47:13 02/21/20 21 02/21/2021 LIPID PANEL _IH cholesterol 187 mg/dL <200 Not Available [facility] [address] [place] [address], [place], [address], 02/22/2021 08:47:13 02/21/2002/21/2021 LIPID PANEL _IH LDL (calculated) 109 mg/dL <130 Nany able range <100 mg/dl for patie nts with CHD or diabe leodan and <70 mg/dl for diabe tic patie nts with known heart disea se. Not Available [facility] [address] [place] [address], [place], [address], 02/22/2021 08:47:13 02/21/2002/21/2021 TSH_I H TSH 2.280 uIU/m L 0.350- 4.940 Not Available [facility] [address] [place] [address], [place], [address], 02/22/2021 08:47:13 02/21/2002/21/2021 TOTAL PSA_I H PSA, total 2.00 NG/mL <4.00 The ABBOT T ARCHI TECT/ ALINI TY SYSTE M Total PSA assay is a Chemi lumin escen t Micro parti cynthia Immun oassa y (CMIA ) for the quant itati ve deter minat ion of total PSA in human serum . Not Available [facility] [address] [facility] [address], [place], [address], 02/22/2021 08:47:14 02/22/20 21 02/25/2021 FECAL GLOBI N BY IMMUN OCHEM ISTRY fecal globin by immunochemis try Detect ed abnormal Not Available [facility] [address] [facility] [address], [place], [address], 02/25/2021 11:54:13 06/16/20 23 06/16/2023 XR, ribs, unila teral , 3 or more view PITA Ojeda MR#: [id number] PITA Ojeda ACCT#: PITA Ojeda NAME: JEAN DODGE DATE OF : 1939 REFERR ING PHYSIC ENRIQUETA: ANNETTA MOYA EXAM DATE: 2022 ACCESS ION NUMBER : [id number] EXAM DESCRI PTION: RIBS (UNI) 3+ VIEW- *IH* INNOVA TIVE RADIOL OGY CLINIC AL INDICA TION: R07.81 Pleuro dynia, thorax right side FINDIN GS: COMPAR CARLY: No prior study. There are no rib fractu res or disloc ations . No osseou s lytic or blasti c destru ctive lesion s are seen. The costov ertebr al articu lation s are normal . The underl basilia lung demons trates no acute abnorm alitie s. No additi onal region al abnorm alitie s are identi fied. IMPRES KRISTOPHER: No abnorm alitie s noted on right rib series . Electr onical ly Signed : Dr. Sarah adkins on 2022 18:09: 53 Read by: Transc ribed by: Transc ribed Date: Electr onical ly signed by: Dr. Sarah adkins Date signed : 2022 6:09:5 3 PM [facility] [address], [place], [address], 07/08/2023 10:56:12 Result Notes None recorded. Problems Name Problem SNOMED Code Status Onset Date Resolution Date Notes Provider Name and Address Organization Details Recorded Time Thrombocytopen ic disorder 669854409 Active 2020 Jerome Moya MD [facility],[address], [place], [address], [facility] 1 09:16:37 Chronic kidney disease stage 3A [id number] Active 2020 Jerome Moya MD [address] [place] [address],[address], [place], [address], [facility] 1 09:22:28 Hypercalcemia 94239484 Active 2020 RT chk PTHi Jerome Moya MD [address] [place] [address],[address] [facility], [place], [address] [place] [address] 7, [facility] 1 09:52:01 Obesity 257237891 Active 2020 [place] [address] [place] [address],[address] [facility], [place], [address], [facility] 1 09:26:15 Occult blood detected in feces 27103461 Active 2020 refer GI Jerome Moya MD [address] [place], [place] [address],[address] [facility], [place], [address] [place] [address] 7, [facility] 1 09:28:51 Benign prostatic hyperplasia 351034527 [place] 2016 [place] [address] [place] [address],[address] [facility], [place], [address] [place] [address] 7, [facility] 7 11:03:43 Problem Notes None recorded. Procedures Surgical History Date Name Laterality Status Provider Name and Address Organization Details Recorded Time 09/07/19 24 HOLD CODE: TELE completed Lisette Judd [facility] 09/07/2023 16:40:18 08/09/19 18 Q BMI is too high G8417 completed Barbie Eldridge [facility] 08/09/2017 13:09:03 11/25/19 17 Q A Medication Review was completed today 1159F/1160F completed Tee Eric MD [address] [place] [address],[address] [facility], [place], [address], [facility] 11/24/2016 11:04:43 11/25/19 17 Q Activities of daily living were assessed(functio nal status) 1170F completed Tee Eric MD [address] [place] [address],[address], [place], [address], [facility] 11/24/2016 11:04:43 11/25/19 17 Q Patient assessed Pain as Negative 1126F/G8731 completed Tee Eric MD [address] [place] [address],[address] [facility], [place], , [facility] 11/24/2016 11:04:44 11/25/19 17 Q Advanced Care Plan in Place 1123F completed Tee Eric MD [address] [place] [address],[address] [facility], [place], , [facility] 11/24/2016 11:04:44 11/25/19 17 Q Fall Risk is Negative 1101F completed Tee Eric MD [address] [place] [address],[address] [facility], [place], , [facility] 11/24/2016 11:04:44 11/25/19 17 AWV 0438/0439 completed Tee Eric MD [address] [place] [address],[address] [facility], [place], , [facility] 11/24/2016 11:04:44 11/25/19 17 Q A Presence or Absence of urinary incontinence was assessed 1090F completed Tee Eric MD [address] [place] [address],[address] [facility], [place], , [facility] 11/24/2016 11:04:44 07/26/19 11 Colonoscopy completed Jerome Moya MD [address] [place] [address],[address], [place], [address], [facility] 02/17/2021 18:08:06 Imaging Results Imaging Date Name Status LastModified by Organiz ation Details LastModified Time 06/16/2023 XR, ribs, unilateral , 3 or more view completed [facility] [address], [place], [address], 07/08/2023 10:56:12 Procedure Notes None recorded. Medical Equipment None Reported. Allergies No known drug allergies Medications Name Sig Start Date Stop Date Status Note LastModified by Organization Details LastModified Time amoxicillin 500 mg capsule TAKE 1 CAPSULE BY MOUTH TWICE A DAY FOR A WEEK 02/17 completed Not Available Not Available Not Available tizanidine 2 mg tablet TAKE 1 TABLET(S) NEEDED BY ORAL ROUTE AT BEDTIME FOR 15 DAYS. 03/03 completed Not Available Not Available Not Available prednisone 20 mg tablet TAKE TWO (2) TABLETS EVERY DAY BY MOUTH WITH A MEAL FOR 5 DAYS. active Not Available Not Available No t Available ofloxacin 0.3 % ear drops INSTILL FOUR (4) INTO AFFECTED EAR(S) TWO TIMES A DAY FOR 7 DAYS. active Not Available Not Available No t Available Zoloft 50 mg tablet Take 1 tablet every day by oral route. 09/30 completed Not Available Not Available Not Available erythromyci n 5 mg/gram (0.5 %) eye ointment APPLY ONE (1) (CM) OF OINTMENT INTO THE LOWER CONJUNCTI LILLIAN SAC(S) IN THE AFFECTED EYE(S) 3 TIMES PER DAY. active Not Available Not Available No t Available Cipro 500 mg tablet Take 1 tablet every 12 hours by oral route. 08/09 completed Not Available Not Available Not Available zolpidem 10 mg tablet 1 tablet qhs 09/30 completed Not Available Not Available Not Available ketoconazol e 2 % topical cream APPLY TO AFFECTED AREA TWICE A DAY 09/30 completed Not Available Not Available Not Available finasteride 5 mg tablet TAKE ONE (1) TABLET(S) BY MOUTH DAILY. active Not Available Not Available No t Available naproxen 500 mg tablet TAKE 1 TABLET BY MOUTH TWICE A DAY NEEDED active Not Available Not Available No t Available amoxicillin 875 mg-potassiu m clavulanate 125 mg tablet TAKE ONE (1) TABLET(S) BY MOUTH EVERY TWELVE HOURS FOR 10 DAYS. active Not Available Not Available No t Available alfuzosin ER 10 mg tablet,exte nded release 24 hr TAKE TWO (2) TABLET(S) BY MOUTH ONCE A DAY. active Not Available Not Available No t Available ibuprofen prn 06/16 completed Not Available Not Available Not Available Vitals Date Recorded Body height Body mass index (BMI) Body weight Oxygen saturation Oxygen saturation in Arterial blood by Pulse oximetry Heart rate Body temperature Systolic blood pressure Diastolic blood pressure Provider Name and Address Organization Details Last Updated DateTime 3 176.53 cm 31.3 kg/m2 14320.3 6 g 99 % 99 % 54 /min 97.4 [degF] 132 mm[Hg] 72 mm[Hg] Vero Pool [facility] 3 16:44:15 Date Recorded Body height Provider Name an d Address Organization Details Last Updated DateTime 09/07/2023 176.53 cm Lisette Whaley [facility] [place] 09/07/2023 16:43:03 Date Recorded Body height Body mass index (BMI) Body weight Heart rate Body temperature Systolic blood pressure Diastolic blood pressure Provider Name and Address Organization Details Last Updated DateTime 1 176.53 cm 32.3 kg/m2 876231. 07 g 53 /min 97.3 [degF] 136 mm[Hg] 80 mm[Hg] SABAS RIVERA [facility] 1 14:45:00 Date Recorded Body height Body mass index (BMI) Body weight Heart rate Oxygen saturation Oxygen saturation in Arterial blood by Pulse oximetry Body temperature Systolic blood pressure Diastolic blood pressure Systolic blood pressure Diastolic blood pressure Provider Name and Address Organization Details Last Updated DateTime 1 176.53 cm 32 kg/m2 74430.3 2 g 55 /min 99 % 99 % 98.2 [degF] 126 mm[Hg] 88 mm[Hg] 130 mm[Hg] 82 mm[Hg] Lissa Pearl [facility] 1 17:08:02 Date Recorded Body height Body mass index (BMI) Body weight Heart rate Oxygen saturation Oxygen saturation in Arterial blood by Pulse oximetry Respiratory rate Body temperature Systolic blood pressure Diastolic blood pressure Provider Name and Address Organization Details Last Updated DateTime 1 176.53 cm 31.9 kg/m2 44461.7 3 g 60 /min 98 % 98 % 19 /min 97.8 [degF] 110 mm[Hg] 70 mm[Hg] Kev Ayala [facility] 1 17:13:04 Social History Question Answer Notes LastModified by Organizat ion Details LastModified Time Tobacco Smoking Status Never Smoker KATHY SEGURA tiffani, [facility] [place] 11/24/2016 10:34:08 Do You Have An Advance Directive? Yes [email or web address] Information not available 11/24/2016 What Is Your Level Of Alcohol Consumption? Occasional [email or web address] Information not available 08/09/2017 How Many Years Have You Consumed Alcohol? 60 Information not available 02/17/2021 Are You Blind Or Do You Have Difficulty Seeing? Yes Wears Glasses Information not available 02/17/2021 What Is Your Level Of Caffeine Consumption? Moderate [email or web address] Information not available 08/09/2017 How Much Tobacco Do You Chew? None Information not available 08/09/2017 Are You Currently Employed? No Information not available 02/17/2021 Are You Deaf Or Do You Have Serious Difficulty Hearing? Yes Hearing Aids Information not available 02/17/2021 What Type Of Diet Are You Following? REGULAR Information not available 02/17/2021 Which Illicit Or Recreational Drugs Have You Used? None Information not available 11/24/2016 Education Post Graduate [email or web address] Information not available 08/09/2017 What Is The Highest Grade Or Level Of School You Have Completed Or The Highest Degree You Have Received? 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 0 [email or web address] Information not available 11/24/2016 Marital Status [email or web address] Informatio n not available 08/09/2017 Do You Have A Medical Power Of Industrial Health Engineer? Yes [email or web address] Information not available 11/24/2016 What Was The Date Of Your Most Recent Tobacco Screening? 09/07/2023 [email or web address] Information not available 09/07/2023 How Many Children Do You Have? 3 Information not available 08/09/2017 Have You Ever Been Counseled For Unhealthy Alcohol Use? Yes Information not available 02/17/2021 What Is Your Relationship Status? Information not available 02/17/2021 Do You Use Your Seat Belt Or Car Seat Routinely? Yes Information not available 02/17/2021 Are You Sexually Active? No Information not available 02/17/2021 Are There Any Smokers In Your House? No Information not available 02/17/2021 How Much Tobacco Do You Smoke? No [email or web address] Information not available 11/24/2016 Do You Feel Stressed (tense, Restless, Nervous, Or Anxious, Or Unable To Sleep At Night)? [id number] Information not available 02/17/2021 Do You Use Any Illicit Or Recreational Drugs? No Information not available 02/17/2021 Has Tobacco Cessation Counseling Been Provided? No Information not available 02/17/2021 Have You Recently Traveled Abroad? No Information not available 02/17/2021 Have You Used IV Drugs? No [email or web address] Information not available 08/09/2017 Do You Or Have You Ever Used Any Other Forms Of Tobacco Or Nicotine? No Information not available 02/17/2021 Sex: Unknown Functional Status Question Answer Note LastModified by Organizat ion Details LastModified Time Do you have transportation difficulties? No Information not available 02/17/2021 Urinary incontinence assessment performed? Yes [email or web address] Information not available 11/24/2016 Are you able to walk? [email or web address] Information not available 02/17/2021 Are you able to care for yourself? Yes Information n ot available 02/17/2021 Do you have difficulty dressing or bathing? No Information not available 02/17/2021 What is your exercise level? Occasional Information not available 02/17/2021 Mental Status Question Answer Note LastModified by Organization D etails LastModified Time Do you have difficulty concentrating, remembering or making decisions? No Information no t available 02/17/2021 Family History Relationship Description Onset Age of this Age Resolved Age Notes LastModified by Organization Details LastModified Time Father Carcinoma of prostate 64 [email or web address] Not available 2016 11:01:34 Mother Old-age 88 [email or web address] Not available 11/24/2016 11:01:47 Medical History No medical history recorded. Immunizations Vaccine Type Date Status Note Provider Nam e and Address Organization Details Recorded Time COVID-19, mRNA, LNP-S, PF, 30 mcg/0.3 mL dose 1 completed Vero Pool [facility] 06/16/2023 16:31:39 COVID-19, mRNA, LNP-S, PF, 30 mcg/0.3 mL dose 1 completed Lisette Whaley [facility] 09/07/2023 16:43:17 COVID-19, mRNA, LNP-S, PF, 30 mcg/0.3 mL dose 1 completed Lisette Ibsen [facility] 09/07/2023 16:43:17 COVID-19, mRNA, LNP-S, bivalent, PF, 30 mcg/0.3 mL dose 2 completed Lisette Ibsen [facility] 09/07/2023 16:43:17 pneumococcal polysaccharide PPV23 6 completed Lisette Whaley [facility] 09/07/2023 16:43:17 Influenza, high-dose, trivalent, PF 6 completed Lisette Ibsen [facility] 09/07/2023 16:43:17 Influenza, high-dose, quadrivalent, PF 3 completed Vero Pool [facility] 06/16/2023 17:54:53 Past Encounters Encounter ID Performer Location Encounter Start Date Encounter Closed Date Diagnosis/Indication Diagnosis SNOMED-CT Code Diagnosis ICD10 Code [id number] Tee Eric MD [facility] [address] [place] [address] 11/24/2016 10:05:14 11/24/2016 11:21:05 Adult health examination 980930031 Z00.00 Benign pro static hyperplasia 526603702 N40.1 Advance di rective discussed with patient 927290720 Z71.89 [id number] Tee Eric MD _[facility] [address] [address] 08/09/2017 12:23:19 08/09/2017 13:16:18 Insomnia 369765899 G47.00 Body mass index 30+ - obesity 769047329 Z68.32 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 [id number] Brianda Nova MD _[facility]_[address] [address] 09/30/2020 14:33:02 09/30/2020 15:16:01 Obesity 421647841 E66.9 Muscle spa sm of cervical muscle of neck 3759390664 04 M62.281 [id number] Jerome Moya MD _[facility]_[place] [id number] [address] 02/17/2021 16:19:38 02/17/2021 18:14:36 Adult health examination 914482182 Z00.00 Screening for malignant neoplasm of colon 294110015 Z12.11 Z12.12 Screening for malignant neoplasm of prostate 363516097 Z12.5 Active or passive immunization 858336561 Z23 [id number] SHANTAL ARSHAD _[facility] [address] [address] 04/16/2021 16:40:34 04/16/2021 17:26:46 Body mass index 30+ - obesity 459659201 Z68.31 E66.9 Influenza vaccination declined 193916818 Z28.21 Occult blo od detected in feces 02625733 R19.5 Superficia l ecchymosis 958741423 R58 [id number] Jerome Moya MD _[facility] [address] [address] 06/16/2023 16:18:03 06/19/2023 05:57:13 Active or passive immunization 427530680 Z23 Rib pain 529369204 R07.8 1 Bursitis o f olecranon of left elbow 2134955927 49184 M70.22 [id number] Pam Castellanos MD [facility] [address] [address] [place] [address] 09/07/2023 16:27:37 09/07/2023 17:04:39 Acute conjunctivitis 34486153 H10.33 Allergic rhinitis 753263 04 J30.9 Health Concerns Section Related Observation LastModified by Organization Detai ls LastModified Time None Recorded Concern Status LastModified by Organization Details LastModified Time None Recorded Advance Directives Directive Y: Payers Encounter Date Sequence Insurance Name Policy Number Policy Ray Covered Member ID Ray Member ID Guarantor Name 09/30/2020 1 [employer] (MEDICARE REPLACEMENT PPO) [id number] Jean Dodge [id number] Jean Dodge 02/17/2021 1 [employer] (MEDICARE REPLACEMENT PPO) [id number] Dodge 04/16/2021 1 [employer] (MEDICARE REPLACEMENT PPO) [id number] Jean Dodge [id number] Dodge 06/16/2023 1 [employer] (MEDICARE REPLACEMENT HMO) Jean Dodge [id number] Jean Dodge 09/07/2023 1 [employer] (MEDICARE REPLACEMENT HMO) Jean Dodge [id number] Jean Dodge Notes Date Note Type Note Provider Name and Address Organization Details Recorded Time 09/30/2020 text/html A 80-year-old prerna granda presents for neck and shoulder pain. Muscle spasm of cervical muscle of neck:Complains of persistent neck and shoulder pain for 2 weeks. States he has pain on the left side of the neck, radiating to his shoulder. Reports no known trauma. Denies swelling or weakness. Denies any issues with range of motion. He is taking Ibuprofen without benefit.Visited Urgent Care yesterday, received Toradol injection and was prescribed muscle relaxant; however, did not fill this prescription due to some insurance issue. He had elevated blood pressure during that visit. He had rotator cuff syndrome in his shoulder many years ago.States he used to play tennis and using muscle relaxant in the past. Brianda Nova MD [facility],[address], [place], [address], [facility] 10/01/2020 22:44:02 04/16/2021 text/html Pt was in the [place] rage when he felt a pinch on his L forearm. States not painful, and notes that the whole area bruised up after he felt the pinch. When patient looked at the area later on there were no bugs attached to the area. States the area is not itchy or painful. As days passed on bruise faded and ring of bruise leftover had patient follow up in office worried about possible tick bite and lyme infection. SHANTAL ARSHAD [facility],[address], [place], [place], , [facility] 04/16/2021 19:11:56 06/16/2023 text/html Musculoskeletal PainReported bypatient.Location:ch est wall pain x 3wks p fall Quality:sharp(w inspiration) Jerome Moya MD [facility],[address], [place], [place], , [facility] 06/16/2023 17:28:44 09/07/2023 text/html The patient's bl ood pressure was self-reported by using a digitally automated BP cuff. {{Yes No*}} I confirm that I received verbal consent from the patient for the audio only visit. This audio visit {{This visit is for administrative use only and this patient will need to return for a face to face visit or telemedicine video-enabled visit for chronic disease management. The patient will NOT be scheduled for a face to face visit or telemedicine video-enabled visit and does not need chronic disease management.*}}. Location of the Patient: {{home* other:}} Location of the Provider: {{office* home}} Names of people participating in the visit: Total time spent with patient: {{10# }} minutes.Pt c/o congested, coughing sneezing negative for covid. fatigue. sx's began wednesday. pt's eyes are blood shot and sticky and has discharge, ears are congested pt has mucus coming from his eyes and they itch. pt has been taking mucinex, dayquil and nyquil Pam Castellanos MD [address] [facility],[address], [place], [address], [facility] [place] 09/14/2023 14:48:48
== END 2024-07-22 13:30 | disposition home or self-care (01) ==
PROVIDERS: Emergency Provider Emergency Medicine
DX: N40.1 Benign prostatic hyperplasia with lower urinary tract symptoms (principal); R33.8 Other retention of urine
CPT/HCPCS: 81003; 99283